=== PATIENT | male | born 1995 | race Two or more races ===

== ENCOUNTER 2016-12-02 12:40 | Emergency (ER) | payer OTHER ==
[2016-12-02 12:51] VITALS: BP 128/72; PULSE 88; TEMP 98.3; BMI 33.7
--- NOTE | 2016-12-02 13:39 | PDOC ---
History of Present Illness - General Chief Complaint: Rash Stated Complaint: RASH ON THIGH Time Seen by Provider: 12/02/16 13:06 History Source: Patient, Family Exam Limitations: No Limitations - History of Present Illness Initial Comments: 12/02/16 13:34 Patient is here with complaints of itchy rash to his groin and penis. States is a new onset diabetic and is had problems with his skin since 1 month. Has used Desitin cream but no other creams or treatments for same. Denies fever, denies any penile discharge, blood sugars have been uncontrolled Severity: Yes: mild, moderate Location: reports: genitalia Respiratory Risk Factors: reports: no cause identified Past History - Travel Traveled outside of the country in the last 30 days: No Close contact w/someone who was outside of country & ill: No - Past Medical History Allergies/Adverse Reactions: Allergies Allergy/AdvReac Type Severity Reaction Status Date / Time No Known Allergies Allergy Verified 12/02/16 12:48 Home Medications: Ambulatory Orders Insulin Glargine,Hum.rec.anlog [Lantus (nf)] 0 units SQ HS 08/18/16 Insulin Lispro [Humalog] 100 unit SQ TID 08/18/16 Metformin HCl [Glucophage] 1,000 mg PO BID 08/18/16 Oxycodone HCl/Acetaminophen [Percocet 5-325 mg Tablet -] 1 combo PO Q6H PRN #7 tablet MDD 4 08/18/16 Clotrimazole/Betamet Diprop [Lotrisone Cream (Small Tube)] 1 applic TP BID #1 tube 12/02/16 Diabetes: Yes - Immunization History Immunization Up to Date: Yes - Psycho/Social/Smoking Cessation Hx Anxiety: No Suicidal Ideation: No Smoking Status: Yes Smoking History: Current some day smoker Have you smoked in the past 12 months: Yes Number of Cigarettes Smoked Daily: 7 Information on smoking cessation initiated: Yes Hx Alcohol Use: No Drug/Substance Use Hx: No Substance Use Type: None Review of Systems - Review of Systems Able to Perform ROS?: Yes Is the patient limited Wallisian proficient: Yes Constitutional: Yes: Symptoms Reported, See HPI, Chills, Malaise HEENTM: No: Symptoms Reported Respiratory: Yes: Symptoms reported Integumentary: Yes: Symptoms Reported, Change in Color, Lesions, Pruritus, Rash All Other Systems: Reviewed and Negative *Physical Exam - Vital Signs Last Vital Signs Temp Pulse Resp BP Pulse Ox 98.3 F 88 19 128/72 97 12/02/16 12:48 12/02/16 12:48 12/02/16 12:48 12/02/16 12:48 12/02/16 12:48 - Physical Exam General Appearance: Yes: Nourished, Appropriately Dressed, Apparent Distress, Mild Distress HEENT: positive: MINI, Normal ENT Inspection, TMs Normal, Pharynx Normal Neck: positive: Supple Male Genitalia: positive: normal genitalia, other (with color changes and patchy pruritic rash consistent with a fungal appearance extending to scrotum, groin creases upper thighs and penis) Musculoskeletal: positive: Normal Inspection Extremity: positive: Normal Capillary Refill Integumentary: positive: Warm, Rash. negative: Normal Color Neurologic: positive: disbursing agent II-XII NML intact, Fully Oriented, Alert, Normal Mood/ Affect, Normal Response, Motor Strength 5/5 Progress Note - Progress Note Progress Note: tinea curis- will treat with Lotrizone= *DC/Admit/Observation/Transfer Diagnosis at time of Disposition: Josephine rash of groin - Discharge Dispostion Disposition: HOME Condition at time of disposition: Stable Admit: No - Patient Instructions Printed Discharge Instructions: Jock Itch Additional Instructions: Wash thoroughly with gentle soaps and dry thoroughly May apply Lotrizone or Antifungal ointment mixed with Desitin paste to areas affected twice daily until clear May use Tylenol or Motrin for pain relief Try to avoid using tight clothing as much as possible to allow drying Follow-up with private doctor in 2-3 days or if worsening Check sugars more frequently - Post Discharge Activity Work/School Note: Back to Work
== END 2016-12-02 13:45 | disposition home or self-care (01) ==
LOC: JERFT 12:40
DX: B35.6 Tinea cruris (principal); B37.49 Other urogenital candidiasis; E10.9 Type 1 diabetes mellitus without complications; Z79.4 Long term (current) use of insulin; Z79.84 Long term (current) use of oral hypoglycemic drugs
CPT/HCPCS: 99281-25

== ENCOUNTER 2018-02-17 20:47 | Emergency (ER) | payer OTHER ==
[2018-02-17 20:50] VITALS: BP 142/81; PULSE 98; TEMP 98; BMI 28.7
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
[2018-02-17 21:25] LABS: URINE APPEARANCE CLEAR; URINE BILIRUBIN NEGATIVE (<2.0 mg/dL); URINE COLOR LTYELLOW; URINE GLUCOSE (UA) 3+ (NEGATIVE); URINE KETONE TRACE (NEGATIVE); URINE LEUK ESTERASE NEGATIVE (NEGATIVE); URINE NITRITE NEGATIVE (NEGATIVE); URINE PROTEIN NEGATIVE (NEGATIVE)
== END 2018-02-17 22:57 | disposition home or self-care (01) ==
LOC: JERFT 20:47
DX: M76.892 Other specified enthesopathies of left lower limb, excluding foot (principal); E11.9 Type 2 diabetes mellitus without complications; Z79.4 Long term (current) use of insulin; Z79.84 Long term (current) use of oral hypoglycemic drugs; F17.210 Nicotine dependence, cigarettes, uncomplicated; Z11.3 Encounter for screening for infections with a predominantly sexual mode of transmission; Z86.19 Personal history of other infectious and parasitic diseases
CPT/HCPCS: 36415; 81003; 87086; 87491; 87591; 99281-25

== ENCOUNTER 2018-03-17 14:36 | Emergency (ER) | payer SELFPAY ==
[2018-03-17 15:02] VITALS: TEMP 98.6; BMI 30.5
[2018-03-17] MEDS ORDERED: METOCLOPRAMIDE HCL INJECTION 10 MG/2 ML VIAL IVPUSH ONE (16:05)
[2018-03-17] MEDS ORDERED: IBUPROFEN 400 MG TABLET (FP) PO ONE ×2 (16:05→16:20)
[2018-03-17] MEDS ORDERED: SODIUM CHLORIDE 1,000 ML IV ONE ×2 (16:05→18:11)
[2018-03-17] MEDS ORDERED: METOCLOPRAMIDE HCL INJECTION 10 MG/2 ML VIAL ONE (16:20)
[2018-03-17 16:47] LABS: BASO % 0.7 % (0-2.0); EOS % 0.2 % (0-4.5); HEMATOCRIT 45.3 % (35.4-49); HEMOGLOBIN 15.8 GM/dL (11.7-16.9); LYMPH % 11.9 % (8-40); MCH 32.8 pg (25.7-33.7); MCHC 34.9 g/dl (32.0-35.9); MEAN CELL VOLUME 94.1 fl (80-96); MEAN PLT VOLUME 10.9 fl (7.5-11.1); MONO % 4.7 % (3.8-10.2); NEUT % 82.5 % (42.8-82.8); PLATELET COUNT 202 K/MM3 (134-434); RBC 4.81 M/mm3 (4.00-5.60); RDW 11.9 % (11.9-15.9); WHITE BLOOD COUNT 12.3 K/mm3 (4.0-10.0)
--- NOTE | 2018-03-17 17:08 | PDOC ---
History of Present Illness - General Chief Complaint: Headache Stated Complaint: HEADACHE Time Seen by Provider: 03/17/18 15:16 History Source: Patient Exam Limitations: No Limitations - History of Present Illness Initial Comments: 03/17/18 17:03 22y M hx of IDDM (poorly compliant) presents with complaint of headache. The patient notes she has had a headache the past few days, it started gradually, is worse with movement, but otherwise resolves. currently headache is minimal but certain activities like bending over will worsen the headache. describes as a pressure/poudning behind his eyes. Pt admits to feeling warm yesterday, but his partner checked his temp and there was no efver. he denies any vision changes, numbnesstingling/weakness, neck pain/stiffness, n/v, chest pain, sob, palpitations, abd pain, dysuria, frequency, diarrhea, mina. pt ntoes he uses his basal insulin and his PRN insulin but doesnt check his blood sugar. he notes that 3 days ago, he gave himself both basal and sliding scale insulin at the same time. Past History - Past Medical History Allergies/Adverse Reactions: Allergies Allergy/AdvReac Type Severity Reaction Status Date / Time No Known Allergies Allergy Verified 03/17/18 15:02 Home Medications: Ambulatory Orders Insulin Glargine,Hum.rec.anlog [Lantus (nf)] 0 units SQ HS 08/18/16 Insulin Lispro [Humalog] 100 unit SQ TID 08/18/16 Metformin HCl [Glucophage] 1,000 mg PO BID 08/18/16 COPD: No Diabetes: Yes - Immunization History Immunization Up to Date: Yes - Suicide/Smoking/Psychosocial Hx Smoking Status: Yes Smoking History: Current every day smoker Have you smoked in the past 12 months: Yes Number of Cigarettes Smoked Daily: 20 Information on smoking cessation initiated: No Hx Alcohol Use: No Drug/Substance Use Hx: No Substance Use Type: None Review of Systems - Review of Systems Able to Perform ROS?: Yes Comments:: 03/17/18 17:33 Constitutional - no reported Fever, Chills, HEENT: no reported vision changes, sore throat Respiratory: no reported cough, sob, hemoptysis Cardiac: no reported chest pain, palpitations, light headedness, leg swelling Abd/GI: no reported abd pain, nausea, vomiting, blood per rectum, melena, diarrhea : no reported dysuria, frequency, discharge Musculskelatal - no reported back pain, joint swelling skin - no reported bruising, erythema, rash neurological: + headache no reported, numbness, focal weakness, tingling, ataxia , hematologic: no reported easy bruising, easy bleeding *Physical Exam - Vital Signs Last Vital Signs Temp Pulse Resp BP Pulse Ox 98.6 F 78 16 117/62 100 03/17/18 14:57 03/17/18 14:57 03/17/18 14:57 03/17/18 14:57 03/17/18 14:57 - Physical Exam Comments: 03/17/18 17:33 GENERAL: The patient is awake, alert, and fully oriented, Nontoxic - in no acute distress. HEAD: Normocephalic, atraumatic. EYES: extraocular movements intact, sclera anicteric, conjunctiva clear, pupils 4mm and symmetric b/l ENT: Normal voice, dry mucous membranes. NECK: Normal range of motion, supple LUNGS: Breath sounds equal, clear to auscultation bilaterally. No wheezes, no rhonchi, no rales. HEART: Regular rate and rhythm, normal S1 and S2 without murmur, rub or gallop. ABDOMEN: Soft, nontender, normoactive bowel sounds. No guarding, no rebound. . No CVA tenderness EXTREMITIES: Normal range of motion, no edema. No clubbing or cyanosis. No cords, erythema, or tenderness. NEUROLOGICAL: No facial assymetry, Normal speech, cn2-12 intact, motor 5/5 in upper/lower extremities, sensation symmetric in arms/legs, normal gait PSYCH: Normal mood, normal affect. SKIN: Warm, Dry, normal turgor, ED Treatment Course - LABORATORY CBC & Chemistry Diagram: 03/17/18 16:40 03/17/18 17:55 - ADDITIONAL ORDERS Additional order review: Laboratory Results 03/17/18 03/17/18 16:40 16:40 Sodium Cancelled Potassium Cancelled Chloride Cancelled Carbon Dioxide Cancelled Anion Gap Cancelled BUN Cancelled Creatinine Cancelled Creat Clearance w eGFR Cancelled Random Glucose Cancelled Calcium Cancelled Total Bilirubin Cancelled AST Cancelled ALT Cancelled Alkaline Phosphatase Cancelled Total Protein Cancelled Albumin Cancelled Acetone, Qual Cancelled 07/21/18 16:40 RBC 4.81 MCV 94.1 MCHC 34.9 RDW 11.9 MPV 10.9 Neutrophils % 82.5 Lymphocytes % 11.9 Monocytes % 4.7 Eosinophils % 0.2 Basophils % 0.7 - Medications Given in the ED: ED Medications Discontinued Medications Generic Name Dose Route Start Last Admin Trade Name Ravi PRN Reason Stop Dose Admin Ibuprofen 400 mg 03/17/18 16:05 03/17/18 16:30 Motrin - PO 03/17/18 16:06 400 mg ONCE ONE Administration Metoclopramide HCl 10 mg 03/17/18 16:05 03/17/18 16:39 Reglan Injection - IVPUSH 03/17/18 16:06 Not Given ONCE ONE Medical Decision Making - Medical Decision Making 03/17/18 17:34 suspect dehdyration headache gradual onset, not worse headache of life or any suggestion of SAH neuro exam unremarkable will ck labs to r/o dka as pt ahs poorly controled bgm will hdyrate with fluids, reglan for headac ewhil reassess 03/17/18 19:32 pts labs reivewd, no signs of dka bgm elevated, pt gettin gfluids headache resolved will dc the pt with pmd fu return precautions were discussed I discussed the physical exam findings, ancillary test results and final diagnoses with the patient. I answered all of the patient's questions. The patient was satisfied with the care received and felt comfortable with the discharge plan and treatment plan. The patient will call their primary care physician within 24 hours to arrange follow-up and will return to the Emergency Department with any new, persistent or worsening symptoms. *DC/Admit/Observation/Transfer Diagnosis at time of Disposition: Hyperglycemia Headache Qualifiers: Headache type: unspecified Headache chronicity pattern: unspecified pattern Intractability: not intractable Qualified Code(s): R51 - Headache - Discharge Dispostion Disposition: HOME Condition at time of disposition: Improved Decision to Admit order: No - Referrals Referrals: [facility] [place] [place] [Provider Group] - Patient Instructions Printed Discharge Instructions: DI for Sinus Headache, DI for Hyperglycemia -- Adult Additional Instructions: Return to the emergency department immediately with ANY new, persistent or worsening symptoms. Continue taking your insulin and medications as prescribed. Make deborah eto take your blood sugar prior to giving yourself the short acting insulin. Make sure to stay well hydrated You MUST call and follow up with your doctor tomorrow for further evaluation of your symptoms. Results were discussed with you. Please make sure your doctor reviews the results of your emergency evaluation. Print Language: TAJIK - Post Discharge Activity
[2018-03-17 18:07] LABS: VENOUS PC02 49.4 mmHg (38-52); VENOUS PH 7.38 (7.32-7.42); VENOUS PO2 33.7 mmHg (28-48)
[2018-03-17 18:39] LABS: ALBUMIN 4.1 g/dl (3.4-5.0); ALK PHOS 158 U/L (45-117); ANION GAP 7 (8-16); BILIRUBIN,TOTAL 0.7 mg/dL (0.2-1.0); BLOOD UREA NITROGEN 9 mg/dL (7-18); CALCIUM 9.2 mg/dL (8.5-10.1); CHLORIDE 98 mmol/L (98-107); CO2 30 mmol/L (21-32); CREATININE 0.9 mg/dL (0.7-1.3); POTASSIUM 3.9 mmol/L (3.5-5.1); SGOT/AST 15 U/L (15-37); SGPT/ALT 23 U/L (12-78); SODIUM 135 mmol/L (136-145); TOT PROT 7.6 g/dl (6.4-8.2)
[2018-03-17 18:49] LABS: GLUCOSE,RANDOM 341 mg/dL (74-106)
[2018-03-17 19:23] LABS: ACETONE SERUM NEGATIVE (NEGATIVE)
[2018-03-17 19:31] VITALS: BP 109/68; PULSE 77
[2018-03-17 20:20] LABS: URINE APPEARANCE CLEAR; URINE BILIRUBIN NEGATIVE (<2.0 mg/dL); URINE COLOR LTYELLOW; URINE GLUCOSE (UA) 3+ (NEGATIVE); URINE KETONE 1+ (NEGATIVE); URINE LEUK ESTERASE NEGATIVE (NEGATIVE); URINE NITRITE NEGATIVE (NEGATIVE); URINE PROTEIN NEGATIVE (NEGATIVE); URINE UROBILINOGEN NEGATIVE mg/dL (0.2-1.0)
== END 2018-03-17 20:09 | disposition home or self-care (01) ==
LOC: JER 14:36
PROC: 3E0337Z Introduction of Electrolytic and Water Balance Substance into Peripheral Vein, Percutaneous Approach (ICD-10-PCS; principal; 2018-03-17)
DX: E10.65 Type 1 diabetes mellitus with hyperglycemia (principal); Z79.4 Long term (current) use of insulin; R51 Headache; F17.210 Nicotine dependence, cigarettes, uncomplicated
CPT/HCPCS: 36415; 80053; 81003; 82009; 82803; 82962; 85025; 99283-25; J7030

== ENCOUNTER 2018-07-11 01:28 | Inpatient (IN) | payer OTHER ==
--- NOTE | 2018-07-11 02:11 | PDOC ---
History of Present Illness - General Chief Complaint: Muscle Cramping Stated Complaint: NUMBNESS, LT FT, DM Time Seen by Provider: 07/11/18 02:11 History Source: Patient - History of Present Illness Initial Comments: 07/11/18 02:20 The patient is a 23 year old male with IDDM who presents to the ED c/o R 1st toe numbness and anal pain and area of hardness. Patient first noticed anal hardness 2 days previous, denies any bleeding, no BM since noticing polyp. Painful to sit. H/o similar pain in 2016 that was self resolving. Toe numbness also started acutely 2 days previous. Denies difficulty ambulating. NKDA Surgical: denies Social: 5 cigarettes daily, daily marijuana, social alcohol PMD: Dr. Prabhu Venegas M.D. As per EMR, patient was evaluated for kana-rectal pain in 2016. Labs were normal, patient eloped prior to rectal CT. Past History - Past Medical History Allergies/Adverse Reactions: Allergies Allergy/AdvReac Type Severity Reaction Status Date / Time No Known Allergies Allergy Verified 07/11/18 02:13 Home Medications: Ambulatory Orders Insulin Lispro [Humalog] 100 unit SQ TID 08/18/16 Metformin HCl [Glucophage] 1,000 mg PO BID 08/18/16 Amox-Tr/K Cl [Augmentin - 875Mg Tablet] 1 tab PO BID 7 Days #14 tablet 03/19/18 COPD: No Diabetes: Yes - Immunization History Immunization Up to Date: Yes - Suicide/Smoking/Psychosocial Hx Smoking Status: Yes Smoking History: Never smoked Have you smoked in the past 12 months: No Number of Cigarettes Smoked Daily: 20 Hx Alcohol Use: No Drug/Substance Use Hx: No Substance Use Type: None *Physical Exam - Physical Exam General Appearance: Yes: Nourished, Appropriately Dressed HEENT: positive: Normal Voice, Hearing Grossly Normal Neck: positive: Trachea midline, Supple Respiratory/Chest: positive: Lungs Clear, Normal Breath Sounds Cardiovascular: positive: S1, S2. negative: Murmur Gastrointestinal/Abdominal: positive: Normal Bowel Sounds, Soft. negative: Rebound, Tenderness, Hernia, Mass Rectal Exam: positive: hemorrhoids (no external hemorrhoids visualized), other ( 1 mm induration @ anal verge, significant erythema, TTP @ at rectum) Musculoskeletal: negative: CVA Tenderness (R), CVA Tenderness (L) Extremity: positive: Normal Capillary Refill, Normal Inspection, Other ( sensation, proprioception intact in 1st digit) Integumentary: positive: Normal Color, Dry, Warm Neurologic: positive: Fully Oriented, Alert ED Treatment Course - LABORATORY CBC & Chemistry Diagram: 07/11/18 03:10 07/11/18 03:10 Medical Decision Making - Medical Decision Making 07/11/18 02:48 23 year old male with anal pain and R 1st toe numbness. PE shows rectal erythema and area of induration. 1st phalanx has sensation and propioception intact. Will obtain pelvic CT with IV and rectal contrast as patient has h/o DM , rule out abscess. 07/11/18 03:27 Labs pending Patient reassessed @ bedside, resting comfortably Fingerstick ordered @ presentation, pending 07/11/18 03:34 No leukocytosis CMP w/Cr pending 07/11/18 03:49 BS over range; awaiting K+; VBG, Acetone pending 07/11/18 04:11 Fingerstick out of range; CMP shows BS 700; K+ 3.8; Will give 6 units insulin; IV hydration; reassess 07/11/18 04:20 Patient counseled extensively on importance of BS control; states his BS is often 400's-500's; review of EMR shows on prior ED evaluations BS 200's-500's; Patient counseled that if he continues to non-adhere to DM regimen he will be on HD 07/11/18 04:38 Patient @ [address] 07/11/18 05:44 CT shows 4.7 x 4.1 cm phlegmon, possible fluid w/inflammatory changes around fatty tissues; no access of pelvic tissues (non-communicating) At this time, given patient's h/o of non-adherence and risk for systemic infection 2/2 to DM, will admit for surgical evaluation. Patient amenable to admission. Repeat FS pending 07/11/18 06:07 Case d/w Dr. Blevins. Patient admitted to observation. *DC/Admit/Observation/Transfer Diagnosis at time of Disposition: Rectal abscess - Discharge Dispostion Condition at time of disposition: Fair Decision to Admit order: Yes - Referrals Referrals: Sajan Venegas MD [Primary Care Provider] - - Patient Instructions - Post Discharge Activity
--- NOTE | 2018-07-11 02:58 | PDOC ---
Attending Attestation - HPI HPI: 07/11/18 03:18 The patient is a 23 year old male, with a significant past medical history of diabetes mellitus (poorly controlled), who presents to the emergency department with, right toe numbness and anal pain with hardness. Patient notes he initially noticed his anal hardness 2 days ago. His last BM was 2 days ago. Allergies: NKA Past surgical history: None reported. Social History: cigarettes 4-5/day. Smokes marijuana 3-4x a day, and is a social alcohol consumer. Primary Care Physician: Dr. Prabhu Venegas - Physicial Exam PE: 07/11/18 04:01 GENERAL: The patient is in no acute distress. HEAD: Normal with no signs of trauma. EYES: PERRLA, EOMI, sclera anicteric, conjunctiva clear. ENT: Ears normal, nares patent, oropharynx clear without exudates. Moist mucous membranes. NECK: Normal range of motion, supple without lymphadenopathy, JVD, or masses. LUNGS: Breath sounds equal, clear to auscultation bilaterally. No wheezes, and no crackles. HEART:Regular rate and rhythm, normal S1 and S2 without murmur, rub or gallop. ABDOMEN: Soft, nontender, normoactive bowel sounds. No guarding, no rebound. No masses palpable. +RECTAL: 3cm firm area to the right of the anus with tenderness to palpation. No erythema or fluctuance. EXTREMITIES: Normal range of motion, no edema. No clubbing or cyanosis. No erythema, or tenderness. NEUROLOGICAL: Cranial nerves II through XII grossly intact. Normal speech. No focal neurological deficits. MUSCULOSKELETAL: Back non-tender to palpation, no CVA tenderness SKIN: Warm, Dry, normal turgor, no rashes or lesions noted. - Medical Decision Making 07/11/18 05:44 EXAM: PELVIS CT WITH CONTRAST HISTORY: Rectal abscess COMPARISON: None. FINDINGS: Just posterior to the anus at the level of the superior portion of the anal crease is a 4.7 cm x 4.1 cm mass that has the appearance of the phlegmon. It is predominantly on the right side but crosses midline slightly to the left. There is does appear to be a faint 2 cm focus of fluid within it .. There is a faint wall around the fluid so still could be an immature abscess. There are inflammatory changes of the fatty tissues around the phlegmon, right greater than left areas Evaluation of the pelvic cavity the cells demonstrates no access or inflammation. The visualized bowel is normal. Urinary bladder is unremarkable. One or more of the following dose reduction techniques were used: automated exposure control, adjustment of the mA and/or kV according to patient size, use of iterative reconstructive technique. Read by: Asad Hernández MD <Sebastian Flynn - Last Filed: 07/11/18 05:44> - Resident Resident Name: Precious Simmons - ED Attending Attestation I have performed the following: I have examined & evaluated the patient, The case was reviewed & discussed with the resident, I agree w/resident's findings & plan, Exceptions are as noted - Medical Decision Making Adam is a 23 yo M h/o poorly controlled IDDM (typically, BGM 300-400) Pt presents with 2 days of perianal firmness and pain This has made it difficult for him to have a bowel movement No systemic signs of illness - no fever No constipation or diarrhea On examination: Pt A&O x 3 RRR CTA kana anal area non erythematous There is a firm area measuring 2.5 cm No fluctuance 07/11/18 04:56 Laboratory Tests 07/11/18 07/11/18 07/11/18 03:10 03:10 03:45 WBC 10.2 H Hgb 15.0 Hct 44.5 Plt Count 155 D Sodium 126 L Potassium 3.8 Chloride 89 L Carbon Dioxide 28 BUN 10 Creatinine 1.2 Random Glucose 701 H* Acetone, Qual Positive small 1+ Given Insulin 07/11/18 06:27 CT demonstrates a fluid collection Repeat blood glucose 600 Will do additional insulin sq Given abx Call placed to hopsitalist <Bren Vance - Last Filed: 07/11/18 06:48> Attestations - Attestations 07/11/18 03:19 Documentation prepared by Sebastian Flynn, acting as medical assistant cardiology for Bren Vance MD. <Sebastian Flynn - Last Filed: 07/11/18 05:44>
[2018-07-11 03:20] LABS: BASO % 0.4 % (0-2.0); EOS % 0.1 % (0-4.5); HEMATOCRIT 44.5 % (35.4-49); LYMPH % 9.3 % (8-40); MCH 32.2 pg (25.7-33.7); MCHC 33.8 g/dl (32.0-35.9); MEAN CELL VOLUME 95.4 fl (80-96); MEAN PLT VOLUME 10.9 fl (7.5-11.1); MONO % 4.6 % (3.8-10.2); NEUT % 85.6 % (42.8-82.8); PLATELET COUNT 155 K/MM3 (134-434); RBC 4.67 M/mm3 (4.00-5.60); RDW 12.5 % (11.9-15.9); WHITE BLOOD COUNT 10.2 K/mm3 (4.0-10.0)
[2018-07-11] MEDS ORDERED: SODIUM CHLORIDE 0.9% 500 ML INFUS.BAG IV ONE (03:50)
[2018-07-11 04:00] LABS: ALK PHOS 142 U/L (45-117); ANION GAP 10 MMOL/L (8-16); BILIRUBIN,TOTAL 0.6 mg/dL (0.2-1); BLOOD UREA NITROGEN 10 mg/dL (7-18); CALCIUM 8.9 mg/dL (8.5-10.1); CHLORIDE 89 mmol/L (98-107); CO2 28 mmol/L (21-32); CREATININE 1.2 mg/dL (0.55-1.3); POTASSIUM 3.8 mmol/L (3.5-5.1); SGOT/AST 10 U/L (15-37); SGPT/ALT 17 U/L (13-61); SODIUM 126 mmol/L (136-145); TOT PROT 7.3 g/dl (6.4-8.2)
[2018-07-11 04:02] LABS: GLUCOSE,RANDOM 701 mg/dL (74-106)
[2018-07-11] MEDS ORDERED: SODIUM CHLORIDE 1,000 ML IV STA (04:02)
[2018-07-11] MEDS ORDERED: INSULIN REGULAR HUMAN 100 UNITS/ML *VIAL IVPUSH ONE (04:03)
[2018-07-11 04:08] LABS: VENOUS PC02 47.4 mmHg (38-52); VENOUS PH 7.32 (7.32-7.42); VENOUS PO2 74.6 mmHg (28-48)
[2018-07-11] MEDS ORDERED: INSULIN (NOVOLOG) ASPART 100 UNITS/ML 10ML VIAL ONE (04:25)
[2018-07-11] MEDS ORDERED: PIPERACILLIN/TAZOB 4.5 GM 4.5 GM in DEXTROSE 5%-WATER 100 ML IVPB ONE (05:54)
[2018-07-11] MEDS ORDERED: INSULIN REGULAR HUMAN 100 UNITS/ML *VIAL SQ ONE (06:23)
[2018-07-11] MEDS ORDERED: LACTATED RINGERS SOLUTION 1,000 ML/1,000 ML INFUS.BAG IV SCH ×2 (06:30→08:07)
--- NOTE | 2018-07-11 06:34 | HP ---
CHIEF COMPLAINT: Anal pain PCP: Dr. Venegas HISTORY OF PRESENT ILLNESS: Patient is a 23 year old male with history of poorly controlled diabetes mellitus, and prior anal abscess in 2016, presents with complaint of anal pain. States he feels a "firmness" with progressively worsening over past three days, described as sharp, nonradiating, pain localized to right sided anus. Denies trauma to the area. Patient is unable to describe any inciting factor. Patient endorses that he has not had bowel movement in three days, due to hesitancy secondary to pain. Exacerbated with sitting down. Denies palliative features. Patient admits similar symptoms in 2016, however per prior ED notes, patient had eloped before treatment. Patient endorses the symptoms resolved spontaneously, and have not recurred since that episode. Patient also endorses constant left toe numbness and parasthesias over the past week. Denies trauma to the area. Has not attempted palliative measures. 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 Family History: Allergies No Known Allergies Allergy (Verified 07/11/18 02:13) HOME MEDICATIONS: Home Medications Medication Instructions Recorded Insulin Lispro [Humalog] 100 unit SQ TID 08/18/16 Metformin HCl [Glucophage] 1,000 mg PO BID 08/18/16 Amox-Tr/K Cl [Augmentin - 875Mg 1 tab PO BID 7 Days #14 tablet 03/19/18 Tablet] REVIEW OF SYSTEMS CONSTITUTIONAL: Absent: fever, chills, diaphoresis, generalized weakness, malaise, loss of appetite, weight change HEENT: Absent: rhinorrhea, nasal congestion, throat pain, throat swelling, difficulty swallowing, mouth swelling, ear pain, eye pain, visual changes CARDIOVASCULAR: Absent: chest pain, syncope, palpitations, irregular heart rate, lightheadedness , peripheral edema RESPIRATORY: Absent: cough, shortness of breath, dyspnea with exertion, orthopnea, wheezing, stridor, hemoptysis GASTROINTESTINAL: Admits: kana-anal pain. Absent: abdominal pain, abdominal distension, nausea, vomiting, diarrhea, melena, hematochezia GENITOURINARY: Absent: dysuria, frequency, urgency, hesitancy, hematuria, flank pain, genital pain MUSCULOSKELETAL: Absent: myalgia, arthralgia, joint swelling, back pain, neck pain SKIN: Absent: rash, itching, pallor HEMATOLOGIC/IMMUNOLOGIC: Absent: easy bleeding, easy bruising, lymphadenopathy, frequent infections ENDOCRINE: Absent: unexplained weight gain, unexplained weight loss, heat intolerance, cold intolerance NEUROLOGIC: Absent: headache, focal weakness or paresthesias, dizziness, unsteady gait, seizure, mental status changes, bladder or bowel incontinence PSYCHIATRIC: Absent: anxiety, depression, suicidal or homicidal ideation, hallucinations. PHYSICAL EXAMINATION Vital Signs - 24 hr 07/11/18 07/11/18 01:30 06:18 Temperature 98.7 F 97.9 F Pulse Rate 98 H Pulse Rate [ 90 Apical] Respiratory 18 16 Rate Blood Pressure 141/74 Blood Pressure 122/74 [Right Arm] O2 Sat by Pulse 98 99 Oximetry (%) GENERAL: Awake, alert, and fully oriented, in no acute distress. HEAD: Normal with no signs of trauma. EYES: Pupils equal, round and reactive to light, extraocular movements intact, sclera anicteric, conjunctiva clear. No lid lag. EARS, NOSE, THROAT: Ears normal, nares patent, oropharynx clear without exudates. Moist mucous membranes. NECK: Normal range of motion, supple without lymphadenopathy, JVD, or masses. LUNGS: Breath sounds equal, clear to auscultation bilaterally. No wheezes, and no crackles. No accessory muscle use. HEART: Regular rate and rhythm, normal S1 and S2 without murmur, rub or gallop. ABDOMEN: Soft, nontender, not distended, normoactive bowel sounds, no guarding, no rebound, no masses. No hepatomegaly or splenomegaly. MUSCULOSKELETAL: Normal range of motion at all joints. No bony deformities or tenderness. No CVA tenderness. UPPER EXTREMITIES: 2+ pulses, warm, well-perfused. No cyanosis. No clubbing. No peripheral edema. LOWER EXTREMITIES: 2+ pulses, warm, well-perfused. No calf tenderness. No peripheral edema. NEUROLOGICAL: Cranial nerves II-XII intact. Normal speech. Normal gait. PSYCHIATRIC: Cooperative. Good eye contact. Appropriate mood and affect. SKIN: Erythema noted to right of anus. Warm, without induration palpated, or discharge noted. Exquisitely tender to palpation. Laboratory Results - last 24 hr 07/11/18 07/11/18 07/11/18 03:10 03:10 03:45 WBC 10.2 H RBC 4.67 Hgb 15.0 Hct 44.5 MCV 95.4 MCH 32.2 MCHC 33.8 RDW 12.5 Plt Count 155 D MPV 10.9 Absolute Neuts (auto) 8.7 H Neutrophils % 85.6 H Lymphocytes % 9.3 D Monocytes % 4.6 Eosinophils % 0.1 Basophils % 0.4 Nucleated RBC % 0 VBG pH 7.32 POC VBG pCO2 47.4 POC VBG pO2 74.6 H D Mixed VBG HCO3 23.8 Sodium 126 L Potassium 3.8 Chloride 89 L Carbon Dioxide 28 Anion Gap 10 BUN 10 Creatinine 1.2 Creat Clearance w eGFR > 60 Random Glucose 701 H* Calcium 8.9 Total Bilirubin 0.6 AST 10 L ALT 17 Alkaline Phosphatase 142 H Total Protein 7.3 Albumin 4.0 Acetone, Qual 07/11/18 03:45 WBC RBC Hgb Hct MCV MCH MCHC RDW Plt Count MPV Absolute Neuts (auto) Neutrophils % Lymphocytes % Monocytes % Eosinophils % Basophils % Nucleated RBC % VBG pH POC VBG pCO2 POC VBG pO2 Mixed VBG HCO3 Sodium Potassium Chloride Carbon Dioxide Anion Gap BUN Creatinine Creat Clearance w eGFR Random Glucose Calcium Total Bilirubin AST ALT Alkaline Phosphatase Total Protein Albumin Acetone, Qual Positive small 1+ ASSESSMENT/PLAN: Patient is a 23 year old male with history of poorly controlled diabetes mellitus, and prior anal abscess in 2015, presents with complaint of anal pain. Anal abscess -Patient received Vancomycin 1 gram IV, Zosyn 4.5 grams IV, and Flagyl 500mg IV in ED. -CT pelvis shows 4.7cm x 4.1 cm mass appearing phlegmon along right side, crossing midline to left. Inflammatory changes along right side. -F/U surgical consult (Dr. Padilla) -F/U ID consult (Dr. Mayen) -NPO -IV LR at 60mL/ hour Diabetes Mellitus -Poorly controlled. Will need close outpatient follow up. -Will begin insulin sliding scale Q6H -BGM Q6H FEN -IV LR at 60mL/ hour -Follow CMP -NPO Prophylaxis -SCDs, TEDs in anticipation of possible surgical procedure. Disposition -Admit to medical surgical floor Visit type - Emergency Visit Emergency Visit: Yes ED Registration Date: 07/11/18 Care time: The patient presented to the Emergency Department on the above date and was hospitalized for further evaluation of their emergent condition. - New Patient This patient is new to me today: Yes Date on this admission: 07/11/18 - Critical Care Critical Care patient: No
[2018-07-11] MEDS ORDERED: INSULIN SLIDING SCALE (NOVOLOG) 1 VIAL SQ SCH (07:00)
[2018-07-11] MEDS ORDERED: ACETAMINOPHEN 1000 MG/100 ML VIAL (NON FORMULARY) IVPB ONE (07:00)
[2018-07-11 07:09] LABS: INR 0.87 (0.83-1.09); PROTHROMBIN TIME (PATIENT) 10.3 SEC (9.7-13.0)
[2018-07-11 07:11] LABS: ACTIVATED PTT 30.9 SECONDS (25.2-36.5)
[2018-07-11] MEDS ORDERED: PIPERACILLIN/TAZOB 4.5 GM 4.5 GM/100 ML BAG IVPB ONE (07:24)
[2018-07-11 07:26] LABS: BASO % 0.7 % (0-2.0); EOS % 0.5 % (0-4.5); HEMATOCRIT 40.2 % (35.4-49); LYMPH % 13.8 % (8-40); MCH 32.1 pg (25.7-33.7); MCHC 34.7 g/dl (32.0-35.9); MEAN CELL VOLUME 92.6 fl (80-96); MEAN PLT VOLUME 10.4 fl (7.5-11.1); MONO % 7.5 % (3.8-10.2); NEUT % 77.5 % (42.8-82.8); PLATELET COUNT 139 K/MM3 (134-434); RBC 4.34 M/mm3 (4.00-5.60); RDW 12.5 % (11.9-15.9); WHITE BLOOD COUNT 9.8 K/mm3 (4.0-10.0)
--- NOTE | 2018-07-11 07:37 | PN ---
Teaching Attending Note Name of Resident: Leena Blevins ATTENDING PHYSICIAN STATEMENT I saw and evaluated the patient. I reviewed the resident's note and discussed the case with the resident. I agree with the resident's findings and plan as documented. SUBJECTIVE: Seen and examined; he is a 23 y/o HM with a PMH significant for DM (states diagnosed 2 years ago; should be on home insulin but he only takes 2-3 times a week and freely admits noncompliance). He was seen here in the past for a rectal abscess but asconded. He first had the rectal abscess ~3 years ago and he states it spontaneously resolved. This time it is worse, painful on his R- inner gluteal area and made worse with activity. No recent abx, no injury to the area, no other issues today he complains of. His glucose is 700 in the ER. Given insulin and fluids. Covering with broad spectrum abx, consulting sgy and ID. 10 sys ROS done and negative aside from HPI PMH and PSH per chart; no prior instrumentation to the area. FH asked and noncontributory Social denies EtOH, drugs. Does use tobacco with several cigarettes/day. OBJECTIVE: Labs, VS, imaging reviewed; final report pending NAD, AAO, resting in bed Golf ball sized R-inner gluteal abscess with redness and induration near the sphincter. Good brisk cap refill, tone normal, +pulses NT ND +BS CN2-12 wnl, no fnd ASSESSMENT AND PLAN: 1) Gluteal Abscess -Seen on prelim scan; awaiting final report. -IV vanc and zosyn (need to cover for G+ and G- alongside risks of uncontrolled DM given the anatomical region at risk for anaerobic involvement). -Consulting sgy and ID. NPO. IVF. Monitor glucose and keep <180 ideally to promote wound healing 2) DM with hyperglycemia -States he was just diagnosed; no prior DKA hx here, etc. He is not in DKA today -SSI while NPO; start Levemir once eating and elucidate for certain if DM2 v DM1. If 2, will start metformin prior to DC -Supplies prior to DC 3) Noncompliance -Physical Education Professor prior to DC 4) Hyponatremia -Likely pseudohypoNa 2/2 glucose; correct and recheck Full Code
[2018-07-11] MEDS ORDERED: ACETAMINOPHEN INJECTION 100 ML IVPB ONE (07:45)
[2018-07-11] MEDS: INSULIN SLIDING SCALE (NOVOLOG) 1 VIAL SQ SCH ×3 (07:53→18:29)
[2018-07-11 08:46] LABS: ALBUMIN 3.4 g/dl (3.4-5.0); ALK PHOS 124 U/L (45-117); ANION GAP 9 MMOL/L (8-16); BILIRUBIN,TOTAL 0.6 mg/dL (0.2-1); BLOOD UREA NITROGEN 9 mg/dL (7-18); CALCIUM 7.7 mg/dL (8.5-10.1); CHLORIDE 100 mmol/L (98-107); CO2 25 mmol/L (21-32); CREATININE 0.8 mg/dL (0.55-1.3); MAGNESIUM 1.8 mg/dL (1.8-2.4); PHOSPHOROUS 2.4 mg/dL (2.5-4.9); POTASSIUM 3.4 mmol/L (3.5-5.1); SGOT/AST 6 U/L (15-37); SGPT/ALT 16 U/L (13-61); SODIUM 134 mmol/L (136-145); TOT PROT 6.2 g/dl (6.4-8.2)
[2018-07-11 08:55] LABS: GLUCOSE,RANDOM 429 mg/dL (74-106)
[2018-07-11] MEDS ORDERED: VANCOMYCIN 1 GRAM (PRE-DOCKED) 1,000 MG/250 ML BAG IVPB ONE (10:00)
[2018-07-11] MEDS ORDERED: PIPERACILLIN/TAZOB 3.375 GM 3.375 GM in DEXTROSE 5%-WATER - 50 ML IVPB SCH ×2 (10:00→14:00)
[2018-07-11] MEDS ORDERED: INSULIN (LEVEMIR) 100 UNITS/ML UNITS SQ SCH (10:00)
--- NOTE | 2018-07-11 10:11 | PN ---
Progress Note (short form) - Note Progress Note: surgery pt seen and examined. full consult and procedure note dictated. 23m, dm, with perirectal abscess at 11:00 position. I&d done with 10 ml pus. pressure dressing placed. Plan- warm soaks tid with epsom salt starting tonight and dry dressing. suggest 5 days augmentin 875 bid once discharged. will follow in 3 weeks to evaluate for development of fistula in ano.
[2018-07-11] MEDS ORDERED: LIDOCAINE 2%/EPINEPHRINE 1:100000 (50 ML MD VIAL) NR ONE (10:15)
[2018-07-11] MEDS ORDERED: LIDOCAINE 1%/EPI 1:100000 (50 ML MULTI DOSE VIAL) NR ONE ×2 (10:15)
[2018-07-11 11:45] VITALS: BMI 30.6
[2018-07-11] MEDS: oxyCODONE HCL 5 MG TABLET PO PRN ×2 (12:21→19:44)
--- NOTE | 2018-07-11 12:44 | CON.ID ---
Consult Consult Specialty:: infectious diseases - Alcohol/Substance Use Hx Alcohol Use: No - Smoking History Smoking history: Never smoked Have you smoked in the past 12 months: No Aproximately how many cigarettes per day: 20 Home Medications - Allergies Allergies/Adverse Reactions: Allergies Allergy/AdvReac Type Severity Reaction Status Date / Time peanut Allergy Intermediate Swelling Verified 07/11/18 11:52 - Home Medications Home Medications: Ambulatory Orders Insulin Lispro [Humalog] 100 unit SQ TID 08/18/16 Metformin HCl [Glucophage] 1,000 mg PO BID 08/18/16 Amox-Tr/K Cl [Augmentin - 875Mg Tablet] 1 tab PO BID 7 Days #14 tablet 03/19/18 Physical Exam Vital Signs: Vital Signs Temperature 97.8 F 07/11/18 09:30 Pulse Rate 80 07/11/18 09:30 Respiratory Rate 18 07/11/18 09:30 Blood Pressure 122/76 07/11/18 09:30 O2 Sat by Pulse Oximetry (%) 98 07/11/18 09:30 Labs: CBC, BMP 07/11/18 07:11 07/11/18 07:11
--- NOTE | 2018-07-11 13:55 | PN ---
Progress Note, Physician Chief Complaint: Mr Le says he has pain and I&D site. Denies cp, sob, n/v. - Current Medication List Current Medications: Active Medications Piperacillin Sod/Tazobactam (Sod 3.375 gm/ Dextrose) 50 mls @ 100 mls/hr IVPB TID [facility]; Protocol Insulin Aspart (Novolog Vial Sliding Scale -) 1 vial SQ Q6H [facility]; Protocol Last Admin: 07/11/18 12:42 Dose: 10 units Oxycodone HCl (Roxicodone -) 5 mg PO Q4H PRN PRN Reason: PAIN LEVEL 4 - 6 Oxycodone HCl (Roxicodone -) 10 mg PO Q4H PRN PRN Reason: PAIN LEVEL 6-10 Last Admin: 07/11/18 12:21 Dose: 10 mg - Objective Vital Signs: Vital Signs Temperature 36.6 C 07/11/18 09:30 Pulse Rate 80 07/11/18 09:30 Respiratory Rate 18 07/11/18 09:30 Blood Pressure 122/76 07/11/18 09:30 O2 Sat by Pulse Oximetry (%) 98 07/11/18 09:30 Constitutional: Yes: No Distress, Calm, Obese Cardiovascular: Yes: Regular Rate and Rhythm. No: Gallop, Murmur, Rub Respiratory: Yes: Regular, CTA Bilaterally. No: Rales, Rhonchi, Wheezes Gastrointestinal: Yes: Normal Bowel Sounds, Soft. No: Distention, Tenderness Extremities: Yes: WNL Edema: No Labs: CBC, BMP 07/11/18 07:11 07/11/18 07:11 INR, PTT INR 0.87 (0.83-1.09) 07/11/18 06:46 Problem List - Problems (1) Rectal abscess Assessment/Plan: -s/p post I&D -ID recommendations pending, but suspect should be safe to transition to oral antibiotics tomorrow (2) Uncontrolled diabetes mellitus Assessment/Plan: -patient is non-compliant with medications -also says he is non-compliant with diet -instructed patient on importance of glucose control -will need follow up -continue SSI currently for better control Code(s): E11.65 - TYPE 2 DIABETES MELLITUS WITH HYPERGLYCEMIA Qualifiers: Diabetes mellitus type: type 2 Glycemic state: with hyperglycemia Qualified Code(s): E11.65 - Type 2 diabetes mellitus with hyperglycemia Assessment/Plan Dispo -plan for discharge tomorrow -patient is without PCP -referred to Dr Moore at [facility] -patient given information and instructed to call for appointment
[2018-07-11] MEDS ORDERED: DEXTROSE 5%-WATER - 50 ML IVPB ONE ×2 (14:58→21:07)
[2018-07-11] MEDS ORDERED: PIPERACILLIN/TAZOBACTAM 3.375 GM VIAL IVPB ONE ×2 (14:58→21:06)
[2018-07-11] MEDS: PIPERACILLIN/TAZOB 3.375 GM 3.375 GM in DEXTROSE 5%-WATER - 50 ML IVPB SCH ×2 (15:10→21:25)
[2018-07-12] MEDS: oxyCODONE HCL 5 MG TABLET PO PRN ×2 (00:46→00:52)
[2018-07-12] MEDS: INSULIN SLIDING SCALE (NOVOLOG) 1 VIAL SQ SCH ×3 (00:47→12:52)
[2018-07-12] MEDS ORDERED: PIPERACILLIN/TAZOBACTAM 3.375 GM VIAL IVPB ONE (05:43)
[2018-07-12] MEDS ORDERED: DEXTROSE 5%-WATER - 50 ML IVPB ONE (05:43)
[2018-07-12] MEDS: PIPERACILLIN/TAZOB 3.375 GM 3.375 GM in DEXTROSE 5%-WATER - 50 ML IVPB SCH (05:47)
[2018-07-12 06:04] VITALS: BP 120/62; PULSE 81; TEMP 98.3
[2018-07-12] MEDS ORDERED: PT OWN MED DRAWER 7, Y5N ONE (08:42)
--- NOTE | 2018-07-12 12:17 | CONS ---
DATE OF CONSULTATION: 07/11/2018 REASON FOR CONSULTATION AND PROCEDURE: Perirectal abscess. BRIEF HISTORY: This is a 23-year-old male, insulin-dependent diabetic, who presented to [facility] Emergency Room with a perirectal abscess. This was not incised and drained in the emergency room and instead requested today for surgical drainage. The patient was admitted to the hospital, had a CAT scan of his abdomen and pelvis which confirmed the abscess, and was started on Zosyn as well as Flagyl antibiotic. The patient has no fever. PAST MEDICAL HISTORY: Significant for diabetes. He has had a thigh cyst before that was drained. PAST SURGICAL HISTORY: Nil. SOCIAL HISTORY: Positive for marijuana. FAMILY HISTORY: Negative for malignancy in the immediate family. ALLERGIES: He has no known drug allergies. HOME MEDICATIONS: Have been reviewed. They include insulin, metformin. REVIEW OF SYSTEMS: General: Denies fatigue or malaise. Cardiac: Denies chest pain or palpitations. Respiratory: Denies shortness of breath or wheeze. Gastrointestinal: No nausea. No vomiting. No diarrhea. Genitourinary: Denies dysuria. Anal: Admits to pain at his anus. Musculoskeletal: Denies joint pain. Psychiatric: Denies anxiety. PHYSICAL EXAMINATION: General: This is a well-developed, well-nourished, 23-year-old male in no distress. Vital Signs: He is afebrile. HEENT: His head is normocephalic. The sclerae are anicteric. Neck: Supple. Chest: Clear. Abdomen: Soft. Extremities: Have trace edema. Rectal: On anal exam, visual inspection at the 11 o'clock position, he has a perirectal abscess. It is approximately 1 cm deep to the skin. Digital rectal exam is deferred due to patient pain. ASSESSMENT: This is a 23-year-old male with a perirectal abscess and diabetes. Will perform incision and drainage. Risks and benefits of the procedure were explained to the patient in detail, including development of a fistula in ano, as well as pain, bleeding, and incontinence. PROCEDURE: The patient was placed in the lateral recumbent position with the right side up. The perianal area was prepped and draped in sterile fashion. Next, 30 mL of lidocaine with epinephrine was used in order to anesthetize the perianal area. A 2-cm radial incision was made with a slight cruciate cut going into the abscess cavity. The abscess cavity tracked along the anus as expected and approximately 10-15 mL of white, nonodorous pus was drained. This was sent for culture. At this point, a dry dressing was placed after irrigation. No further pus was required to be drained. The patient was admitted and on his Zosyn antibiotic. When felt to be safely discharged by the Medicine and ID service, he should be discharged home on oral antibiotics. I would suggest Augmentin. He should follow with me in 3 weeks' time to evaluate for complete closure of the incision and to rule out development of a fistula. The patient also should do warm soaks 3 times a day with Epson salt starting tonight and then apply a dry dressing. Although he is only 23, he should also consider a colonoscopy to look for other etiologies of his perirectal abscess such as inflammatory bowel disease. DO SUMMER OWEN/[id number]
--- NOTE | 2018-07-12 12:40 | PN ---
Progress Note, Physician History of Present Illness: patient stable doing much better no complaints pain better - Current Medication List Current Medications: Active Medications Piperacillin Sod/Tazobactam (Sod 3.375 gm/ Dextrose) 50 mls @ 100 mls/hr IVPB TID [facility]; Protocol Last Admin: 07/12/18 05:47 Dose: 100 mls/hr Insulin Aspart (Novolog Vial Sliding Scale -) 1 vial SQ Q6H [facility]; Protocol Last Admin: 07/12/18 06:32 Dose: 4 units Oxycodone HCl (Roxicodone -) 5 mg PO Q4H PRN PRN Reason: PAIN LEVEL 4 - 6 Last Admin: 07/11/18 19:44 Dose: 5 mg Oxycodone HCl (Roxicodone -) 10 mg PO Q4H PRN PRN Reason: PAIN LEVEL 6-10 Last Admin: 07/12/18 00:52 Dose: 10 mg - Objective Vital Signs: Vital Signs Temperature 98.3 F 07/11/18 21:00 Pulse Rate 81 07/11/18 21:00 Respiratory Rate 17 07/11/18 21:00 Blood Pressure 120/62 07/11/18 21:00 O2 Sat by Pulse Oximetry (%) 98 07/11/18 21:00 Constitutional: Yes: No Distress, Calm Respiratory: Yes: Regular, CTA Bilaterally Gastrointestinal: Yes: Normal Bowel Sounds, Soft Musculoskeletal: Yes: WNL Extremities: Yes: WNL Neurological: Yes: Alert, Oriented Psychiatric: Yes: Alert, Oriented Labs: CBC, BMP 07/11/18 07:11 07/11/18 07:11 INR, PTT INR 0.87 (0.83-1.09) 07/11/18 06:46 Assessment/Plan Patient is a 23 year old male with history of poorly controlled diabetes mellitus, and prior anal abscess in 2016, presents with complaint of anal pain. Anal abscess Diabetes Mellitus plan patient can be discharged on augmentin 875 mg po bid for 7 more days follow up with surgery rest as per the team
--- NOTE | 2018-07-12 12:57 | DS ---
Physical Examination Vital Signs: Vital Signs Temperature 36.8 C 07/11/18 21:00 Pulse Rate 81 07/11/18 21:00 Respiratory Rate 17 07/11/18 21:00 Blood Pressure 120/62 07/11/18 21:00 O2 Sat by Pulse Oximetry (%) 98 07/11/18 21:00 Constitutional: Yes: No Distress, Calm, Obese Cardiovascular: Yes: Regular Rate and Rhythm. No: Gallop, Murmur, Rub Respiratory: Yes: Regular, CTA Bilaterally. No: Rales, Rhonchi, Wheezes Gastrointestinal: Yes: Normal Bowel Sounds, Soft. No: Distention, Tenderness Extremities: Yes: WNL Edema: No Labs: CBC, BMP 07/11/18 07:11 07/11/18 07:11 Discharge Summary Reason For Visit: ABSCESS OF RECTUM Current Active Problems Rectal abscess (Acute) Hospital Course: (1) Rectal abscess (2) Uncontrolled diabetes mellitus Code(s): E11.65 - TYPE 2 DIABETES MELLITUS WITH HYPERGLYCEMIA Qualifiers: Diabetes mellitus type: type 2 Glycemic state: with hyperglycemia Qualified Code(s): E11.65 - Type 2 diabetes mellitus with hyperglycemia Mr Le is a 23 year old male who comes in with rectal abscess and uncontrolled diabetes. He was admitted to the hospital and started on zosyn. He was seen by surgery and underwent I&D. He tolerated this well without complications. He was seen by ID and after 24 hours his zosyn was changed to augmentin. He was counselled multiple times about controlling his diabetes. He was given the number to Dr Moore at [facility] to establish primary care, hopefully he will do so and remain compliant with his regimen. He is currently stable for discharge home. 32 minutes spent in preparation of this discharge Condition: Stable - Instructions Diet, Activity, Other Instructions: diabetic diet. Resume previous activity. Referrals: Chucky Moore MD [Non Staff, Medical] - 1 Week Boris Grover MD [Staff Physician] - Disposition: HOME - Home Medications Comprehensive Discharge Medication List: Ambulatory Orders Insulin Lispro [Humalog] 100 unit SQ TID 08/18/16 Metformin HCl [Glucophage] 1,000 mg PO BID 08/18/16 Amox-Tr/K Cl [Augmentin 875-125mg Tablet -] 1 tab PO BID 7 Days #14 tablet 07/12 oxyCODONE HCL [Roxicodone -] 5 mg PO Q4H PRN #10 tablet MDD 30mg 07/12/18
== END 2018-07-12 13:53 | disposition home or self-care (01) | DRG 254 ==
LOC: JER 01:28 → JERBED 05:54 → OBSVTOIN 06:27 → J5S 09:16
PROVIDERS: ADMIT Internal Medicine; ATTEND Internal Medicine
PROC: 0D9P3ZX Drainage of Rectum, Percutaneous Approach, Diagnostic (ICD-10-PCS; principal; 2018-07-11)
DX: K61.1 Rectal abscess (principal); E11.65 Type 2 diabetes mellitus with hyperglycemia; E87.1 Hypo-osmolality and hyponatremia; Z79.4 Long term (current) use of insulin; Z79.84 Long term (current) use of oral hypoglycemic drugs; F12.10 Cannabis abuse, uncomplicated; F17.210 Nicotine dependence, cigarettes, uncomplicated; Z91.14 Patient's other noncompliance with medication regimen; E66.9 Obesity, unspecified; Z68.30 Body mass index [BMI] 30.0-30.9, adult
CPT/HCPCS: 36415; 72193-TC; 80053; 82009; 82803; 82962; 83036; 83735; 84100; 85025; 85610; 85651; 85730; 86140; 86850; 86900; 86901; 87070; 87186; 87205; 99284-25; G0378; J0131; J7030

== ENCOUNTER 2018-08-05 02:41 | Emergency (ER) | payer OTHER ==
--- NOTE | 2018-08-05 03:01 | PDOC ---
Attending Attestation - Resident Resident Name: Melina Sherwood - ED Attending Attestation I have performed the following: I have examined & evaluated the patient, The case was reviewed & discussed with the resident, I agree w/resident's findings & plan - HPI HPI: 08/05/18 03:08 Pt comes with tonsil swelling bilat; exudates x 3 plus days and he has a hx of diabetes that is uncontrolled. He has abd pain and states that he has not been eating and drinking enough. - Physicial Exam PE: 08/05/18 04:31 Pt has white exudates on tonsils. Pt has strep A negative. We will treat him for thrush. We will send him home with pen Vee K for strep (different serotupe than grp A) - Medical Decision Making 08/05/18 03:24 Pt will be hydrated; given pepcid and clinda; and if strep positive, we will treat with LA bicillin IM. Pt has only peanut allergy 08/05/18 04:32 Pt has a blood sugar of 320s. We will treat with NSS and Regular insulin push. He will be sent home with metformin, as he will be traveling to [place], where he is from. He can follow with doctors there. 08/05/18 04:41 Pt will have repeat blood fingerstick in a couple hours and then he will be discharged and asked to follow with clinic docs. Repeat FS is 249; pt is stable for d/c Heart Score/ECG Review - ECG Intrepretation Rhythm: Regular Rhythm - [place]: Normal - P and UT Prominent R with upright T in V1 (true posterior NV): No Delta Wave(s) Present: No WPW: No - QRS Poor R Wave Progression: No Q Wave Present: No - ECG Impressions Normal ECG: Yes Non-specific ST Elevation: No Ischemic Changes: No Bradycardia: No Torsades yakelin Pointes: No WPW: No
[2018-08-05 03:03] VITALS: PULSE 82; TEMP 98.6; BMI 66.4
[2018-08-05] MEDS ORDERED: CLINDAMYCIN 600MG PREMIX IVPB 600 MG/50 ML BAG IVPB ONE ×2 (03:08→03:32)
[2018-08-05] MEDS ORDERED: SODIUM CHLORIDE 0.9% 500 ML INFUS.BAG IV ONE (03:08)
[2018-08-05] MEDS ORDERED: FAMOTIDINE 20 MG/50 ML IVPB 20 MG/50 ML MG IVPB ONE ×2 (03:08→03:32)
--- NOTE | 2018-08-05 03:37 | PDOC ---
History of Present Illness <Tonja Espitia - Last Filed: 08/05/18 05:59> - History of Present Illness Initial Comments: Adam Le is a 23yo man with a PMH of IDDM who presnets with 3-4 days of throat pain and now chest/upper abdominal pain. He states that initially he had throat pain, which is now so severe that he is unable to swallow, and this has progressed to upper abdominal v chest pain. He states that it hurts underneath his lowest ribs. Mr Le has not taken anything for the pain at home. He additionally reports that he does not check his blood glucose at home and has not done so for the past approximately 4 months. He has no idea what his glucose normally is at home. Mr Le denies any known fevers, shivering chills, vomiting, lower abdominal pain, congestion, ear pain, cough, or change in bowel habits. He has no known sick contacts. He does report mild SOB secondary to increased pain with deep breaths. <Melina Sherwood - Last Filed: 08/05/18 06:21> - General Chief Complaint: Chest Pain Stated Complaint: CHEST PAIN/DIABETIC Time Seen by Provider: 08/05/18 02:48 Past History <Tonja Espitia - Last Filed: 08/05/18 05:59> - Past Medical History Anemia: No Asthma: No Cancer: No Cardiac Disorders: No CVA: No COPD: No CHF: No Dementia: No Diabetes: Yes GI Disorders: No Disorders: No HTN: No Hypercholesterolemia: No Liver Disease: No Seizures: No Thyroid Disease: No - Immunization History Immunization Up to Date: Yes - Suicide/Smoking/Psychosocial Hx Smoking Status: Yes Smoking History: Unknown if ever smoked Have you smoked in the past 12 months: No Number of Cigarettes Smoked Daily: 20 Information on smoking cessation initiated: No Hx Alcohol Use: No Drug/Substance Use Hx: No Substance Use Type: None Hx Substance Use Treatment: No <Melina Sherwood - Last Filed: 08/05/18 06:21> - Past Medical History Allergies/Adverse Reactions: Allergies Allergy/AdvReac Type Severity Reaction Status Date / Time peanut Allergy Intermediate Swelling Verified 07/11/18 11:52 Home Medications: Ambulatory Orders Insulin Lispro [Humalog] 100 unit SQ TID 08/18/16 Amox-Tr/K Cl [Augmentin 875-125mg Tablet -] 1 tab PO BID 7 Days #14 tablet 07/12 oxyCODONE HCL [Roxicodone -] 5 mg PO Q4H PRN #10 tablet MDD 30mg 07/12/18 Metformin HCl [Glucophage] 1,000 mg PO BID #60 tablet 08/05/18 Nystatin Oral Suspension - [Nystatin Oral Susp 022954 Units/5 ML -] 500,000 units PO Q6H #28 cup 08/05/18 Penicillin V Potassium [Pen Vee K -] 500 mg PO TID #21 tablet 08/05/18 Review of Systems - Review of Systems Comments:: General: No fevers, no chills, no weight or appetite change, no malaise HEENT: No changes in vision, no changes in hearing, no congestion. +sore throat CV: No palpitations, no LE edema. +b/l lower chest pain Pulm: No SOB, no cough, no wheezing. +pleuritic pain GI: No nausea or vomiting, no change in bowel habits, no melena. +Upper abdominal pain : No frequency, no urgency, no dysuria Musc: No back pain, no joint swelling, no recent injury Skin: No rash, no lesions, no erythema Endo: No excessive thirst, no heat/cold intolerance. +IDDM Heme: No unusual bruising or bleeding, no swollen glands Neuro: No syncope, no numbness/tingling, no focal weakness Vasc: No claudication Psych: No recent change in mood, no SI or HI <Melina Sherwood - Last Filed: 08/05/18 06:21> *Physical Exam - Vital Signs Last Vital Signs Temp Pulse Resp BP Pulse Ox 98.6 F 82 18 112/78 97 08/05/18 02:52 08/05/18 02:52 08/05/18 02:52 08/05/18 02:52 08/05/18 02:52 <Tonja Espitia - Last Filed: 08/05/18 05:59> - Vital Signs Last Vital Signs Temp Pulse Resp BP Pulse Ox 98.6 F 82 18 110/75 97 08/05/18 02:45 08/05/18 02:45 08/05/18 02:45 08/05/18 02:45 08/05/18 02:45 - Physical Exam Comments: General: Comfortable, no acute distress HEENT: PERRL, EOMI, MMM, voice normal, normal neck ROM. B/L tonsils w/ erythema and white exudate. Cards: RRR, no murmur appreciated Pulm: Comfortable on room air, clear to auscultation bilaterally Abd: Soft, nondistended. TTP in b/l upper abdomen : No CVA tenderness Ext: Atraumatic. No LE edema. ROM intact. Strength 5/5 and equal bilaterally Vasc: Extremities WWP. Palpable radial and pedal pulses bilaterally Skin: Normal color, no rashes or lesions Neuro: A&Ox3, CN grossly intact, normal speech, motor/sensory grossly intact and symmetric Psych: Mood appropriate to situation <Melina Sherwood - Last Filed: 08/05/18 06:21> Moderate Sedation - Procedure Monitoring Vital Signs: Procedure Monitoring Vital Signs Temperature 98.6 F 08/05/18 02:52 Pulse Rate 82 08/05/18 02:52 Respiratory Rate 18 08/05/18 02:52 Blood Pressure 112/78 08/05/18 02:52 O2 Sat by Pulse Oximetry (%) 97 08/05/18 02:52 <Tonja Espitia - Last Filed: 08/05/18 05:59> - Procedure Monitoring Vital Signs: Procedure Monitoring Vital Signs Temperature 98.6 F 08/05/18 02:45 Pulse Rate 82 08/05/18 02:45 Respiratory Rate 18 08/05/18 02:45 Blood Pressure 110/75 08/05/18 02:45 O2 Sat by Pulse Oximetry (%) 97 08/05/18 02:45 <Melina Sherwood - Last Filed: 08/05/18 06:21> ED Treatment Course - LABORATORY CBC & Chemistry Diagram: 08/05/18 02:52 08/05/18 02:52 - ADDITIONAL ORDERS Additional order review: Laboratory Results 08/05/18 08/05/18 04:15 02:52 Sodium Cancelled Potassium Cancelled Chloride Cancelled Carbon Dioxide Cancelled Anion Gap Cancelled BUN Cancelled Creatinine Cancelled Creat Clearance w eGFR Cancelled POC Glucometer [phone] Random Glucose Cancelled Calcium Cancelled Phosphorus Cancelled Magnesium Cancelled Total Bilirubin Cancelled AST Cancelled ALT Cancelled Alkaline Phosphatase Cancelled Total Protein Cancelled Albumin Cancelled Lipase Cancelled 08/05/18 08/05/18 04:15 02:52 RBC 4.90 MCV 93.4 MCHC 36.0 H RDW 12.6 MPV 11.5 H D Neutrophils % 72.9 Lymphocytes % 15.1 Monocytes % 11.4 H Eosinophils % 0.2 Basophils % 0.4 POC Glucometer [phone] - Medications Given in the ED: ED Medications Discontinued Medications Generic Name Dose Route Start Last Admin Trade Name Ravi PRN Reason Stop Dose Admin Clindamycin Phosphate 600 mg in 50 mls @ 100 mls/hr 08/05/18 03:08 08/05/18 03:49 Cleocin 600 Mg Premix Ivpb - IVPB 08/05/18 03:37 100 mls/hr ONCE ONE Administration Protocol Famotidine/Sodium Chloride 20 mg in 50 mls @ 100 mls/hr 08/05/18 03:08 03:49 Pepcid 20 Mg Premixed Ivpb - IVPB 08/05/18 03:37 100 mls/hr ONCE ONE Administration Insulin Human Regular 8 units 08/05/18 04:19 08/05/18 04:29 Novolin R Vial *For Ivpush Or Iv Drip Only* IVPUSH 08/05/18 04:20 8 units ONCE ONE Administration Nystatin 500,000 units 08/05/18 04:22 08/05/18 04:38 Nystatin Oral Suspension - PO 08/05/18 04:23 500,000 units ONCE ONE Administration Sodium Chloride 1,000 ml 08/05/18 03:08 08/05/18 03:49 Normal Saline - IV 08/05/18 03:09 1,000 ml ONCE ONE Administration <Tonja Espitia - Last Filed: 08/05/18 05:59> - LABORATORY CBC & Chemistry Diagram: 08/05/18 02:52 08/05/18 02:52 <Melina Sherwood - Last Filed: 08/05/18 06:21> Medical Decision Making - Medical Decision Making 08/05/18 03:39 Adam Le is a 23yo man with a h/o IDDM who presents with throat pain and b /l upper abdominal v low chest pain. - Tonsils w/ erythema and exudates c/w strep. Reports throat pain, increased with swallowing. Could also be thrush given diabetes and unknown glucose control. Sending rapid strep swab. - Abd pain ddx includes dka, pancreatitis, cholecystitis, gastritis, pneumonia. Could have mono as he has throat pain and upper abd pain. Pleuritic in nature and b/l, could be secondary to muscle aches from throat infection - CBC, CMP, mag, phos, lipase sent to evaluate - EKG completed at arrival, NSR. Heart/lung exam normal, no report of cough or wheezing. Low suspicion for cardiac or pulmonary pathology. - Has not eaten in over 1 day. 1L NS, famotidine for rehydration and for stomach pain - 600mg IV clindamycin for suspected strep. If rapid strep positive, will give IM penicillin as pt reports medication non-compliance and lack of follow up in the past. 08/05/18 04:21 - Strep negative - Glucose in 300's on fingerstick. Giving 8u IV insulin - Chemistry hemolized - CBC without abnormalities. Kane, pneumonia or surgical abdominal pathology significantly less likely with lack of fever or leukocytosis. 08/05/18 04:45 - Pt initially refused insulin, reported that his sugar is always in the 300-700 's and this is normal for him. Reports that he faints if his sugar is under 200. Explained to Mr Rey that this is very high and is likely to lead to complications, both immediate and delayed. He insists that he is different than other people. - Declined repeat chemistry - Will repeat fingerstick in 1 hour after completing - Giving nystatin swish/swallow due to concern for thrush with uncontrolled sugars. Will also d/c with antibiotics for throat infection. 08/05/18 05:32 - Sleeping comfortably - Did eventually consent to IV insulin - Will recheck glucose and d/c home with follow up. 08/05/18 06:21 - Fingerstick glucose decreased to 149. - Appears clinically improved - D/C home Discussed with Dr Espitia. Melina Sherwood PGY1 <Melina Sherwood - Last Filed: 08/05/18 06:21> *DC/Admit/Observation/Transfer <Tonja Espitia - Last Filed: 08/05/18 05:59> - Discharge Dispostion Decision to Admit order: No <Melina Sherwood - Last Filed: 08/05/18 06:21> Diagnosis at time of Disposition: Hyperglycemia, Tonsillar exudate, Upper abdominal pain, Pharyngitis, Josephine infection of mouth - Discharge Dispostion Disposition: HOME Condition at time of disposition: Stable - Prescriptions Prescriptions: Metformin HCl [Glucophage] 1,000 mg PO BID #60 tablet Nystatin Oral Suspension - [Nystatin Oral Susp 525074 Units/5 ML -] 500,000 units PO Q6H #28 cup Penicillin V Potassium [Pen Vee K -] 500 mg PO TID #21 tablet - Referrals Referrals: [facility] [place] [Provider Group] - Patient Instructions Printed Discharge Instructions: DI for Thrush, DI for Diabetes Type 2 Additional Instructions: Discharge Instructions: You were seen in the emergency department with a sore throat and abdominal pain. You had a strep throat test that was negative. Your blood sugars were very high. You had IV insulin and IV fluids given to help bring down your blood sugar. You were noted to have white patches on your tonsils. These may be a bacterial infection causing the sore throat, but they may be a fungal infection called thrush that is caused by your very high blood sugars. You have been prescribed medications for both of these. Home Care: - You have been prescribed a fungus medication called Nystatin. Swish this around your mouth and then swallow it as prescribed - You have also been prescribed an antibiotic, penicillin, for suspected throat infection. Take this twice per day until it is finished. Do not stop taking it early even if you feel better. - You have been prescribed one of your diabetes medications, metformin. Make sure you take this twice per day as prescribed. You will likely need to start using insulin at home again too. - Check your blood sugars at least twice per day at home. They should be between 80-130 before you eat and no higher than 180 after eating. Follow Up: - You have been referred to the [facility] internal medicine clinic for follow up of your diabetes. Make an appointment within the next week. They will likely need to run additional tests and can refer you to an environmental health safety engineer (diabetes doctor) if needed to help control your blood sugars. - Seek immediate medical care if your abdominal pain becomes worse, you cannot eat or have persistent vomiting, your blood sugars are over 300 and do not come down with medication, or you have any medical emergency.
[2018-08-05 04:00] LABS: BASO % 0.4 % (0-2.0); EOS % 0.2 % (0-4.5); HEMATOCRIT 45.7 % (35.4-49); HEMOGLOBIN 16.4 GM/dL (11.7-16.9); LYMPH % 15.1 % (8-40); MCH 33.6 pg (25.7-33.7); MEAN CELL VOLUME 93.4 fl (80-96); MEAN PLT VOLUME 11.5 fl (7.5-11.1); MONO % 11.4 % (3.8-10.2); NEUT % 72.9 % (42.8-82.8); PLATELET COUNT 189 K/MM3 (134-434); RDW 12.6 % (11.9-15.9); WHITE BLOOD COUNT 9.7 K/mm3 (4.0-10.0)
[2018-08-05 04:06] VITALS: BP 112/78
[2018-08-05] MEDS ORDERED: HEMOQUE TEST 1 EACH EACH ONE (04:12)
[2018-08-05] MEDS ORDERED: INSULIN REGULAR HUMAN 100 UNITS/ML *VIAL IVPUSH ONE (04:19)
[2018-08-05] MEDS ORDERED: INSULIN REGULAR HUMAN 100 UNITS/ML *VIAL ONE (04:20)
[2018-08-05] MEDS ORDERED: NYSTATIN 500,000 UNITS/5 ML SUSPENSION PO ONE (04:22)
--- NOTE | 2018-08-10 13:33 | EKG ---
Test Reason : Blood Pressure : / mmHG Vent. Rate : 088 BPM Atrial Rate : 088 BPM P-R Int : 132 ms QRS Dur : 094 ms QT Int : 364 ms P-R-T Axes : 069 058 048 degrees QTc Int : 440 ms NORMAL SINUS RHYTHM NORMAL ECG WHEN COMPARED WITH ECG OF 18-AUG-2016 15:45, NO SIGNIFICANT CHANGE WAS FOUND Confirmed by ELVIS BOYD MD ([id number]) on 08/10/2018 1:33:09 PM Referred By: Confirmed By:ELVIS BOYD MD
== END 2018-08-05 06:39 | disposition home or self-care (01) ==
LOC: JER 02:41
PROC: 3E03329 Introduction of Other Anti-infective into Peripheral Vein, Percutaneous Approach (ICD-10-PCS; principal; 2018-08-05)
PROC: 3E033GC Introduction of Other Therapeutic Substance into Peripheral Vein, Percutaneous Approach (ICD-10-PCS; 2018-08-05)
PROC: 3E013VG Introduction of Insulin into Subcutaneous Tissue, Percutaneous Approach (ICD-10-PCS; 2018-08-05)
DX: E11.65 Type 2 diabetes mellitus with hyperglycemia (principal); M54.9 Dorsalgia, unspecified; J06.9 Acute upper respiratory infection, unspecified; B37.0 Candidal stomatitis
CPT/HCPCS: 36415; 82962; 85025; 87070; 87880; 93005; 93010; 96365; 96368; 96375; 99284-25

== ENCOUNTER 2018-09-04 21:19 | Emergency (ER) | payer OTHER ==
--- NOTE | 2018-09-04 21:43 | PDOC ---
Rapid Medical Evaluation Chief Complaint: Blood Sugar Problem Time Seen by Provider: 09/04/18 21:41 Medical Evaluation: Allergies Allergy/AdvReac Type Severity Reaction Status Date / Time peanut Allergy Intermediate Swelling Verified 07/11/18 11:52 09/04/18 21:42 I performed a brief in person evaluation. CC: Elevated BS HPI: Pt is a 23 Yo male with a hx of DM who states that he glucometer read high. PE: Skin: Clear Lungs: Clear Heart: RRR MS: Moves all extremities without difficulty Neuro: Alert Psych: Appropriate affect Labs drawn at triage. Pt will go to main ED for further evaluation. Discharge Disposition - Diagnosis Hyperglycemia - Referrals - Patient Instructions - Post Discharge Activity
[2018-09-04 21:48] VITALS: BP 130/75; PULSE 99; TEMP 98.2; BMI 29.0
== END 2018-09-04 23:06 | disposition left against medical advice (07) ==
LOC: JER 21:19
DX: Z53.21 Procedure and treatment not carried out due to patient leaving prior to being seen by health care provider (principal)
CPT/HCPCS: 99281-25

== ENCOUNTER 2018-10-24 01:25 | Emergency (ER) | payer OTHER ==
[2018-10-24 01:53] VITALS: BP 128/72; PULSE 101; TEMP 97.7; BMI 30.1
--- NOTE | 2018-10-24 02:10 | PDOC ---
History of Present Illness - General History Source: Patient Exam Limitations: No Limitations - History of Present Illness Initial Comments: 10/24/18 02:23 The patient is a 23 year old male with a significant past medical history of diabetes9 non compliant with medication) who presents to the emergency department with epigastric abdominal pain for about 1 week. The patient reports that his epigastric pain feels like a sharp sensation and is more left sided. He states that his pain is worsened with eating and drinking. He denies any recent injury, trauma or heavy lifting. He denies any fever, chills, nausea, vomiting, diarrhea, constipation or urinary symptoms . he denies any chest pain , shortness or breath, headache or dizziness. The patient denies any other complaints. <Tez Joe - Last Filed: 10/24/18 05:45> <Chelsey Mendez - Last Filed: 10/24/18 05:49> - General Chief Complaint: Pain Stated Complaint: ABD PAIN Time Seen by Provider: 10/24/18 02:07 Past History <Tez Joe - Last Filed: 10/24/18 05:45> - Past Medical History Anemia: No Asthma: No Cancer: No Cardiac Disorders: No CVA: No COPD: No CHF: No Dementia: No Diabetes: Yes GI Disorders: No Disorders: No HTN: No Hypercholesterolemia: No Liver Disease: No Seizures: No Thyroid Disease: No - Immunization History Immunization Up to Date: Yes - Suicide/Smoking/Psychosocial Hx Smoking Status: Yes Smoking History: Current every day smoker Have you smoked in the past 12 months: Yes Number of Cigarettes Smoked Daily: 3 Information on smoking cessation initiated: Yes Hx Alcohol Use: No Drug/Substance Use Hx: Yes (MARIJUANA) Substance Use Type: None Hx Substance Use Treatment: No <Chelsey Mendez - Last Filed: 10/24/18 05:49> - Past Medical History Allergies/Adverse Reactions: Allergies Allergy/AdvReac Type Severity Reaction Status Date / Time peanut Allergy Intermediate Swelling Verified 10/24/18 01:52 Home Medications: Ambulatory Orders Insulin Lispro [Humalog] 100 unit SQ TID 08/18/16 Metformin HCl [Glucophage] 1,000 mg PO BID #60 tablet 10/24/18 Review of Systems - Review of Systems Able to Perform ROS?: Yes Comments:: 10/24/18 02:23 GENERAL/CONSTITUTIONAL: No fever or chills. No weakness. HEAD, EYES, EARS, NOSE AND THROAT: No change in vision. No ear pain or discharge. No sore throat. GASTROINTESTINAL: (+)epigastric pain.No nausea, vomiting, diarrhea or constipation. GENITOURINARY: No dysuria, frequency, or change in urination. CARDIOVASCULAR: No chest pain or shortness of breath. RESPIRATORY: No cough, wheezing, or hemoptysis. MUSCULOSKELETAL: No joint or muscle swelling or pain. No neck or back pain. SKIN: No rash NEUROLOGIC: No headache, vertigo, loss of consciousness, or change in strength/ sensation. ENDOCRINE: No increased thirst. No abnormal weight change. HEMATOLOGIC/LYMPHATIC: No anemia, easy bleeding, or history of blood clots. ALLERGIC/IMMUNOLOGIC: No hives or skin allergy. <Tez Joe - Last Filed: 10/24/18 05:45> *Physical Exam - Vital Signs Last Vital Signs Temp Pulse Resp BP Pulse Ox 97.7 F 101 H 17 128/72 97 10/24/18 01:50 10/24/18 01:50 10/24/18 01:50 10/24/18 01:50 10/24/18 01:50 - Physical Exam Comments: 10/24/18 02:23 GENERAL: Awake, in no acute distress HEAD: No signs of trauma EYES: PERRLA, EOMI, sclera anicteric, conjunctiva clear, visual acuity grossly intact ENT: Auricles normal inspection, hearing grossly normal, nares patent, oropharynx clear without exudates. Moist mucosa NECK: Normal ROM, supple, no lymphadenopathy, JVD, or masses LUNGS: Breath sounds equal, clear to auscultation bilaterally. No wheezes, and no crackles. Normal work of breathing. HEART: Regular rate and rhythm, normal S1 and S2, no murmurs, rubs or gallops ABDOMEN: (+)LUQ and mid-epigastric tenderness with voluntary guarding. Soft, normoactive bowel sounds. No rebound. No masses. Non-distended. CHEST WALL: BACK: No midline tenderness. EXTREMITIES: Normal range of motion, no edema. No clubbing or cyanosis. No erythema, or tenderness NEUROLOGICAL: Alert, and fully oriented x4, Cranial nerves II through XII grossly intact. Normal speech, normal gait. DTRs 2/4 bilaterally. SKIN: Warm, Dry, normal turgor, no rashes or lesions noted. <Tez Joe - Last Filed: 10/24/18 05:45> - Vital Signs Last Vital Signs Temp Pulse Resp BP Pulse Ox 97.7 F 101 H 17 128/72 97 10/24/18 01:50 10/24/18 01:50 10/24/18 01:50 10/24/18 01:50 10/24/18 01:50 <Chelsey Mendez - Last Filed: 10/24/18 05:49> Moderate Sedation - Procedure Monitoring Vital Signs: Procedure Monitoring Vital Signs Temperature 97.7 F 10/24/18 01:50 Pulse Rate 101 H 10/24/18 01:50 Respiratory Rate 17 10/24/18 01:50 Blood Pressure 128/72 10/24/18 01:50 O2 Sat by Pulse Oximetry (%) 97 10/24/18 01:50 <Tez Joe - Last Filed: 10/24/18 05:45> - Procedure Monitoring Vital Signs: Procedure Monitoring Vital Signs Temperature 97.7 F 10/24/18 01:50 Pulse Rate 101 H 10/24/18 01:50 Respiratory Rate 17 10/24/18 01:50 Blood Pressure 128/72 10/24/18 01:50 O2 Sat by Pulse Oximetry (%) 97 10/24/18 01:50 <Chelsey Mendez - Last Filed: 10/24/18 05:49> ED Treatment Course - LABORATORY CBC & Chemistry Diagram: 10/24/18 02:35 10/24/18 05:00 <Tez Joe - Last Filed: 10/24/18 05:45> - LABORATORY CBC & Chemistry Diagram: 10/24/18 02:35 10/24/18 05:00 <Chelsey Mendez - Last Filed: 10/24/18 05:49> Medical Decision Making - Critical Care Time Total Critical Care Time (minutes): 45 Critical Care Statement: The care of this patient involved high complexity decision making to prevent further life threatening deterioration of the patient 's condition and/or to evaluate & treat vital organ system(s) failure or risk of failure. 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 <Tez Joe - Last Filed: 10/24/18 05:45> - Discharge Dispostion Decision to Admit order: No - Attestations Physician Attestion: 10/24/18 05:43 I, Dr Chelsey Mendez, attest that this document has been prepared under my direction and personally reviewed by me in its entirety. I further attest, that it accurately reflects all work, procedures and medical decision making performed by me. <Chelsey Mendez - Last Filed: 10/24/18 05:49> Diagnosis at time of Disposition: Hyperglycemia due to type 1 diabetes mellitus - Discharge Dispostion Disposition: HOME Condition at time of disposition: Improved - Prescriptions Prescriptions: Metformin HCl [Glucophage] 1,000 mg PO BID #60 tablet - Patient Instructions Printed Discharge Instructions: Type 1 Diabetes, DI for Hyperglycemia -- Adult Additional Instructions: Continue your insulin as instructed. You have been given a refill of your metformin. See her primary care physician as well. If you develop vomiting fever or return of abdominal pain return to the emergency department for repeat evaluation.
[2018-10-24] MEDS ORDERED: FAMOTIDINE 20 MG/50 ML IVPB 20 MG/50 ML MG IVPB ONE ×2 (02:13→02:35)
[2018-10-24] MEDS ORDERED: MAG HYDROX/AL HYDROX/SIMETH 30 ML UNIT-DOSE CUP PO ONE (02:13)
[2018-10-24] MEDS ORDERED: SODIUM CHLORIDE 0.9% 500 ML INFUS.BAG IV ONE (02:13)
[2018-10-24] MEDS ORDERED: LIDOCAINE VISCOUS 2% ORAL/TOP 20 ML UNIT-DOSE CUP MM ONE (02:13)
[2018-10-24] MEDS ORDERED: MAG HYDROX/AL HYDROX/SIMETH 30 ML UNIT-DOSE CUP ONE (02:35)
[2018-10-24] MEDS ORDERED: LIDOCAINE VISCOUS 2% ORAL/TOP 20 ML UNIT-DOSE CUP ONE (02:35)
[2018-10-24 02:39] LABS: HEMATOCRIT 42.8 % (35.4-49); HEMOGLOBIN 15.2 GM/dL (11.7-16.9); MCH 34.1 pg (25.7-33.7); MCHC 35.5 g/dl (32.0-35.9); MEAN CELL VOLUME 96.1 fl (80-96); MEAN PLT VOLUME 11.1 fl (7.5-11.1); PLATELET COUNT 177 K/MM3 (134-434); RBC 4.46 M/mm3 (4.00-5.60); RDW 12.7 % (11.9-15.9); WHITE BLOOD COUNT 7.2 K/mm3 (4.0-10.0)
[2018-10-24 03:02] LABS: ALBUMIN 3.7 g/dl (3.4-5.0); ALK PHOS 147 U/L (45-117); ANION GAP 6 MMOL/L (8-16); BILIRUBIN,TOTAL 0.5 mg/dL (0.2-1); BLOOD UREA NITROGEN 8 mg/dL (7-18); CALCIUM 8.6 mg/dL (8.5-10.1); CHLORIDE 91 mmol/L (98-107); CO2 29 mmol/L (21-32); CREATININE 1.2 mg/dL (0.55-1.3); LIPASE 215 U/L (73-393); POTASSIUM 4.5 mmol/L (3.5-5.1); SGOT/AST 12 U/L (15-37); SGPT/ALT 21 U/L (13-61); SODIUM 126 mmol/L (136-145); TOT PROT 7.1 g/dl (6.4-8.2)
[2018-10-24 03:04] LABS: GLUCOSE,RANDOM 752 mg/dL (74-106)
[2018-10-24] MEDS ORDERED: SODIUM CHLORIDE 1,000 ML IV STA (03:08)
[2018-10-24] MEDS ORDERED: INSULIN REGULAR HUMAN 100 UNITS/ML *VIAL SQ ONE ×2 (03:08→04:17)
[2018-10-24] MEDS ORDERED: INSULIN REGULAR HUMAN 100 UNITS/ML *VIAL ONE ×2 (03:25→04:19)
[2018-10-24 03:31] LABS: VENOUS PC02 51.2 mmHg (38-52); VENOUS PH 7.33 (7.32-7.42); VENOUS PO2 33.4 mmHg (28-48)
[2018-10-24 04:31] LABS: URINE APPEARANCE CLEAR; URINE BILIRUBIN NEGATIVE (<2.0 mg/dL); URINE COLOR COLORLESS; URINE GLUCOSE (UA) 3+ (NEGATIVE); URINE KETONE NEGATIVE (NEGATIVE); URINE LEUK ESTERASE NEGATIVE (NEGATIVE); URINE NITRITE NEGATIVE (NEGATIVE); URINE PROTEIN NEGATIVE (NEGATIVE); URINE UROBILINOGEN NEGATIVE mg/dL (0.2-1.0)
[2018-10-24 05:39] LABS: ANION GAP 8 MMOL/L (8-16); BLOOD UREA NITROGEN 7 mg/dL (7-18); CALCIUM 7.7 mg/dL (8.5-10.1); CHLORIDE 101 mmol/L (98-107); CO2 24 mmol/L (21-32); CREATININE 0.9 mg/dL (0.55-1.3); POTASSIUM 3.9 mmol/L (3.5-5.1); SODIUM 133 mmol/L (136-145)
[2018-10-24 05:40] LABS: GLUCOSE,RANDOM 445 mg/dL (74-106)
[2018-10-24 11:58] LABS: ACETONE SERUM NEGATIVE (NEGATIVE)
== END 2018-10-24 06:15 | disposition home or self-care (01) ==
LOC: JER 01:25
PROC: 3E0337Z Introduction of Electrolytic and Water Balance Substance into Peripheral Vein, Percutaneous Approach (ICD-10-PCS; principal; 2018-10-24)
PROC: 3E033GC Introduction of Other Therapeutic Substance into Peripheral Vein, Percutaneous Approach (ICD-10-PCS; 2018-10-24)
PROC: 3E013VG Introduction of Insulin into Subcutaneous Tissue, Percutaneous Approach (ICD-10-PCS; 2018-10-24)
PROC: 3E013VG Introduction of Insulin into Subcutaneous Tissue, Percutaneous Approach (ICD-10-PCS; 2018-10-24)
DX: E10.65 Type 1 diabetes mellitus with hyperglycemia (principal); Z79.4 Long term (current) use of insulin
CPT/HCPCS: 36415; 80048; 80053; 81003; 82009; 82803; 82962; 83690; 85027; 96361; 96365; 96372; 99282-25; J7030

== ENCOUNTER 2018-12-09 01:55 | Observation (INO) | payer OTHER ==
[2018-12-09 02:29] VITALS: BP 123/73; PULSE 103; TEMP 99.4; BMI 61.8
--- NOTE | 2018-12-09 02:54 | PDOC ---
History of Present Illness - General Chief Complaint: Pain, Acute Stated Complaint: ABDOMINAL PAIN Time Seen by Provider: 12/09/18 02:54 History Source: Patient Exam Limitations: No Limitations - History of Present Illness Initial Comments: 12/09/18 06:52 Pt has periumbilical pain; uncontrolled blood sugar,. as he has no docs and no desire to care for his DM. Timing/Duration: 24 hours Past History - Travel Traveled outside of the country in the last 30 days: No Close contact w/someone who was outside of country & ill: No - Past Medical History Allergies/Adverse Reactions: Allergies Allergy/AdvReac Type Severity Reaction Status Date / Time peanut Allergy Intermediate Swelling Verified 10/24/18 01:52 Home Medications: Ambulatory Orders Metformin HCl [Glucophage] 1,000 mg PO BID 12/09/18 Anemia: No Asthma: No Cancer: No Cardiac Disorders: No CVA: No COPD: No CHF: No Dementia: No Diabetes: Yes GI Disorders: No Disorders: No HTN: No Hypercholesterolemia: No Liver Disease: No Seizures: No Thyroid Disease: No - Immunization History Immunization Up to Date: Yes - Suicide/Smoking/Psychosocial Hx Smoking Status: Yes Smoking History: Current every day smoker Have you smoked in the past 12 months: Yes Number of Cigarettes Smoked Daily: 6 Information on smoking cessation initiated: No Hx Alcohol Use: No Drug/Substance Use Hx: No Substance Use Type: None Hx Substance Use Treatment: No Review of Systems - Review of Systems Constitutional: Yes: Loss of Appetite. No: Symptoms Reported, See HPI, Chills, Diaphoresis, Fever, Malaise, Night Sweats, Weakness, Weight Stable, Unintentional Wgt. Loss, Unexplained wgt Loss, Other HEENTM: No: Symptoms Reported, See HPI, Eye Pain, Blurred Vision, Tearing, Recent change in vision, Double Vision, Cataracts, Ear Pain, Ocular Prothesis, Ear Discharge, Nose Pain, Nose Congestion, Tinnitus, Nose Bleeding, Hearing Loss , Throat Pain, Throat Swelling, Mouth Pain, Dental Problems, Difficulty Swallowing, Mouth Swelling, Other Respiratory: No: Symptoms reported, See HPI, Cough, Orthopnea, Shortness of Breath, SOB with Exertion, SOB at Rest, Stridor, Wheezing, Productive cough, Hemoptysis, Other Cardiac (ROS): No: Symptoms Reported, See HPI, Chest Pain, Edema, Irregular Heart Rate, Lightheadedness, Palpitations, Syncope, Chest Tightness, Other ABD/GI: Yes: Other (belly button pain) : No: Symptoms Reported, See HPI, Burning, Dysuria, Discharge, Frequency, Flank Pain, Hematuria, Incontinence, Pain, Urgency, Testicular Mass, Testicular Swelling, Lesions, Testicular Pain, Other Musculoskeletal: No: Symptoms Reported, See HPI, Back Pain, Gout, Joint Pain, Joint Swelling, Muscle Pain, Muscle Weakness, Neck Pain, Joint Stiffness, Other Integumentary: No: Symptoms Reported, See HPI, Bruising, Change in Color, Change in Hair/Nails, Dryness, Erythema, Flushing, Lesions, Lumps, Pallor, Pruritus, Rash, Sweating, Other Neurological: No: Symptoms reported, See HPI, Headache, Numbness, Paresthesia, Pre-Existing Deficit, Seizure, Tingling, Tremors, Weakness, Unsteady Gait, Ataxia, Dizziness, Other *Physical Exam - Vital Signs Last Vital Signs Temp Pulse Resp BP Pulse Ox 99.4 F 103 H 20 123/73 98 12/09/18 02:25 12/09/18 02:25 12/09/18 02:25 12/09/18 02:25 12/09/18 02:25 - Physical Exam General Appearance: Yes: Nourished, Appropriately Dressed. No: Apparent Distress HEENT: positive: EOMI, MINI, Normal ENT Inspection, Normal Voice, Pharynx Normal Neck: positive: Trachea midline, Supple Respiratory/Chest: positive: Lungs Clear, Normal Breath Sounds Cardiovascular: positive: Regular Rhythm, Regular Rate, S1, S2 Gastrointestinal/Abdominal: positive: Tender, Guarding, Tenderness, Mass ( periumbilical swelling and tenderness). 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 Pt was refusing IV; we finally convinced pt to allow us to place an IV. We will treat with regular insulin 10units IV as well as 1L NSS. 12/09/18 06:35 Pt will be signed out to the day team. 12/09/18 06:49 I explained to patient that he needs abx for a pneumonia and a periumbilical infection. He wants to sign AMA. I convinced him to stay for abx and IV hydration and insulin. Pt has no PMD and no place to follow up. He will be signed out to AM ER docs. *DC/Admit/Observation/Transfer Diagnosis at time of Disposition: Diabetes, Cellulitis, umbilical, Pneumonia - Discharge Dispostion Condition at time of disposition: Guarded - Referrals - Patient Instructions - Post Discharge Activity
[2018-12-09] MEDS ORDERED: SODIUM CHLORIDE 0.9% 500 ML INFUS.BAG IV ONE ×2 (03:22→06:33)
[2018-12-09 03:40] LABS: BASO % 0.5 % (0-2.0); EOS % 0.8 % (0-4.5); HEMOGLOBIN 16.1 GM/dL (11.7-16.9); LYMPH % 15.7 % (8-40); MCH 32.2 pg (25.7-33.7); MCHC 34.9 g/dl (32.0-35.9); MEAN CELL VOLUME 92.3 fl (80-96); MEAN PLT VOLUME 11.2 fl (7.5-11.1); MONO % 7.2 % (3.8-10.2); NEUT % 75.8 % (42.8-82.8); PLATELET COUNT 200 K/MM3 (134-434); RBC 4.98 M/mm3 (4.00-5.60); RDW 11.9 % (11.9-15.9); WHITE BLOOD COUNT 9.8 K/mm3 (4.0-10.0)
[2018-12-09] MEDS ORDERED: INSULIN REGULAR HUMAN 100 UNITS/ML *VIAL SQ ONE (03:57)
[2018-12-09] MEDS ORDERED: INSULIN REGULAR HUMAN 100 UNITS/ML *VIAL ONE ×2 (04:00→06:34)
[2018-12-09 04:15] LABS: ALBUMIN 4.2 g/dl (3.4-5.0); ALK PHOS 181 U/L (45-117); ANION GAP 10 MMOL/L (8-16); BILIRUBIN,TOTAL 0.8 mg/dL (0.2-1); BLOOD UREA NITROGEN 8 mg/dL (7-18); CALCIUM 9.4 mg/dL (8.5-10.1); CHLORIDE 92 mmol/L (98-107); CO2 27 mmol/L (21-32); POTASSIUM 3.8 mmol/L (3.5-5.1); SGOT/AST 9 U/L (15-37); SGPT/ALT 19 U/L (13-61); SODIUM 130 mmol/L (136-145)
[2018-12-09 04:16] LABS: GLUCOSE,RANDOM 454 mg/dL (74-106)
[2018-12-09 05:14] LABS: ACETONE SERUM TRACE (NEGATIVE)
[2018-12-09] MEDS ORDERED: INSULIN REGULAR HUMAN 100 UNITS/ML *VIAL IVPUSH ONE (06:33)
[2018-12-09] MEDS ORDERED: AZITHROMYCIN IVPB 500 MG in DEXTROSE 5%-WATER - 250 ML IVPB ONE (06:37)
[2018-12-09] MEDS ORDERED: CEFTRIAXONE 1 GM in DEXTROSE 5%-WATER - 50 ML IVPB ONE (06:37)
[2018-12-09] MEDS ORDERED: CEFTRIAXONE 1 GM/50 ML BAG ONE (06:45)
[2018-12-09] MEDS ORDERED: AZITHROMYCIN IVPB 500 MG/250 ML BAG IVPB ONE (06:59)
--- NOTE | 2018-12-09 07:44 | PDOC ---
*Physical Exam - Vital Signs Last Vital Signs Temp Pulse Resp BP Pulse Ox 99.4 F 103 H 20 123/73 98 12/09/18 02:25 12/09/18 02:25 12/09/18 02:25 12/09/18 02:25 12/09/18 02:25 ED Treatment Course - LABORATORY CBC & Chemistry Diagram: 12/09/18 03:30 12/09/18 03:30 - ADDITIONAL ORDERS Additional order review: Laboratory Results 12/09/18 12/09/18 12/09/18 06:20 03:38 03:30 WBC RBC Hgb Hct MCV MCH MCHC RDW Plt Count MPV Absolute Neuts (auto) Neutrophils % Lymphocytes % Monocytes % Eosinophils % Basophils % Nucleated RBC % Sodium 130 L Potassium 3.8 Chloride 92 L Carbon Dioxide 27 Anion Gap 10 BUN 8 Creatinine 1.0 Creat Clearance w eGFR 91.05 POC Glucometer 455 481 Random Glucose 454 H* Calcium 9.4 Total Bilirubin 0.8 AST 9 L ALT 19 Alkaline Phosphatase 181 H Total Protein 8.0 Albumin 4.2 Acetone, Qual Trace 12/09/18 03:30 WBC 9.8 RBC 4.98 Hgb 16.1 Hct 46.0 MCV 92.3 MCH 32.2 MCHC 34.9 RDW 11.9 Plt Count 200 MPV 11.2 H Absolute Neuts (auto) 7.4 Neutrophils % 75.8 Lymphocytes % 15.7 Monocytes % 7.2 Eosinophils % 0.8 D Basophils % 0.5 Nucleated RBC % 0 Sodium Potassium Chloride Carbon Dioxide Anion Gap BUN Creatinine Creat Clearance w eGFR POC Glucometer Random Glucose Calcium Total Bilirubin AST ALT Alkaline Phosphatase Total Protein Albumin Acetone, Qual 12/09/18 12/09/18 12/09/18 06:20 03:38 03:30 RBC 4.98 MCV 92.3 MCHC 34.9 RDW 11.9 MPV 11.2 H Neutrophils % 75.8 Lymphocytes % 15.7 Monocytes % 7.2 Eosinophils % 0.8 D Basophils % 0.5 POC Glucometer 455 481 - RADIOLOGY Radiology Studies Ordered: Category Date Time Status CHEST PA & LAT [RAD] Stat Radiology 12/09/18 07:40 Ordered - Medications Given in the ED: ED Medications Discontinued Medications Generic Name Dose Route Start Last Admin Trade Name Freq PRN Reason Stop Dose Admin Azithromycin 500 mg/ Dextrose 250 mls @ 250 mls/hr 12/09/18 06:37 12/09/18 07 :03 IVPB 12/09/18 07:36 250 mls/hr ONCE ONE Administration Ceftriaxone Sodium 1 gm/ 50 mls @ 100 mls/hr 12/09/18 06:37 12/09/18 06:48 Dextrose IVPB 12/09/18 07:06 100 mls/hr ONCE ONE Administration Insulin Human Regular 10 units 12/09/18 03:57 12/09/18 04:02 Novolin R Vial *For Ivpush Or Iv Drip Only* SQ 12/09/18 03:58 10 units ONCE ONE Administration Insulin Human Regular 10 units 12/09/18 06:33 12/09/18 06:43 Novolin R Vial *For Ivpush Or Iv Drip Only* IVPUSH 12/09/18 06:34 10 units ONCE ONE Administration Sodium Chloride 1,000 ml 12/09/18 03:22 12/09/18 04:07 Normal Saline - IV 12/09/18 03:23 Not Given ONCE ONE Sodium Chloride 1,000 ml 12/09/18 06:33 12/09/18 06:43 Normal Saline - IV 12/09/18 06:34 1,000 ml ONCE ONE Administration Medical Decision Making - Medical Decision Making 12/09/18 07:40 Care received at 0700 Pt pending admission for PNA, hyperglycemia Covered with ceftriaxone and azithro Case discussed with Dr. Walker, pt admitted to /s obs Case discussed in detail with admitting physician including history, physical exam and ancillary studies. Admitting physician has assumed care for the patient, will follow all pending diagnostics and will complete the evaluation and treatment. *DC/Admit/Observation/Transfer Diagnosis at time of Disposition: Diabetes, Cellulitis, umbilical, Pneumonia - Discharge Dispostion Condition at time of disposition: Guarded Decision to Admit order: Yes - Referrals - Patient Instructions - Post Discharge Activity - Attestations Physician Attestion: 12/09/18 07:44 I, Dr. Josias Hwang MD, attest that this document has been prepared under my direction and personally reviewed by me in its entirety. I further attest, that it accurately reflects all work, treatment, procedures and medical decision -making performed by me.
[2018-12-09 08:30] LABS: URINE APPEARANCE CLEAR; URINE BILIRUBIN NEGATIVE (NEGATIVE); URINE COLOR YELLOW; URINE KETONE 40 mg/dl (NEGATIVE)
[2018-12-09 08:32] LABS: PH,URINE 5.5 (5.0-8.0)
[2018-12-09 08:33] LABS: URINE LEUK ESTERASE NEGATIVE (NEGATIVE); URINE NITRITE NEGATIVE (NEGATIVE); URINE PROTEIN NEGATIVE (NEGATIVE)
--- NOTE | 2018-12-09 09:13 | HP ---
CHIEF COMPLAINT: PCP: HISTORY OF PRESENT ILLNESS: ER course was notable for: (1) (2) (3) Recent Travel: PAST MEDICAL HISTORY: PAST SURGICAL HISTORY: Social History: Smoking: Alcohol: Drugs: Family History: Allergies peanut Allergy (Intermediate, Verified 10/24/18 01:52) Swelling HOME MEDICATIONS: Home Medications Medication Instructions Recorded Metformin HCl [Glucophage] 1,000 mg PO BID 12/09/18 REVIEW OF SYSTEMS CONSTITUTIONAL: Absent: fever, chills, diaphoresis, generalized weakness, malaise, loss of appetite, weight change HEENT: Absent: rhinorrhea, nasal congestion, throat pain, throat swelling, difficulty swallowing, mouth swelling, ear pain, eye pain, visual changes CARDIOVASCULAR: Absent: chest pain, syncope, palpitations, irregular heart rate, lightheadedness , peripheral edema RESPIRATORY: Absent: cough, shortness of breath, dyspnea with exertion, orthopnea, wheezing, stridor, hemoptysis GASTROINTESTINAL: Absent: abdominal pain, abdominal distension, nausea, vomiting, diarrhea, constipation, melena, hematochezia GENITOURINARY: Absent: dysuria, frequency, urgency, hesitancy, hematuria, flank pain, genital pain MUSCULOSKELETAL: Absent: myalgia, arthralgia, joint swelling, back pain, neck pain SKIN: Absent: rash, itching, pallor HEMATOLOGIC/IMMUNOLOGIC: Absent: easy bleeding, easy bruising, lymphadenopathy, frequent infections ENDOCRINE: Absent: unexplained weight gain, unexplained weight loss, heat intolerance, cold intolerance NEUROLOGIC: Absent: headache, focal weakness or paresthesias, dizziness, unsteady gait, seizure, mental status changes, bladder or bowel incontinence PSYCHIATRIC: Absent: anxiety, depression, suicidal or homicidal ideation, hallucinations. PHYSICAL EXAMINATION Vital Signs - 24 hr 12/09/18 02:25 Temperature 99.4 F Pulse Rate 103 H Respiratory 20 Rate Blood Pressure 123/73 O2 Sat by Pulse 98 Oximetry (%) GENERAL: Awake, alert, and fully oriented, in no acute distress. HEAD: Normal with no signs of trauma. EYES: Pupils equal, round and reactive to light, extraocular movements intact, sclera anicteric, conjunctiva clear. No lid lag. EARS, NOSE, THROAT: Ears normal, nares patent, oropharynx clear without exudates. Moist mucous membranes. NECK: Normal range of motion, supple without lymphadenopathy, JVD, or masses. LUNGS: Breath sounds equal, clear to auscultation bilaterally. No wheezes, and no crackles. No accessory muscle use. HEART: Regular rate and rhythm, normal S1 and S2 without murmur, rub or gallop. ABDOMEN: Soft, nontender, not distended, normoactive bowel sounds, no guarding, no rebound, no masses. No hepatomegaly or splenomegaly. MUSCULOSKELETAL: Normal range of motion at all joints. No bony deformities or tenderness. No CVA tenderness. UPPER EXTREMITIES: 2+ pulses, warm, well-perfused. No cyanosis. No clubbing. No peripheral edema. LOWER EXTREMITIES: 2+ pulses, warm, well-perfused. No calf tenderness. No peripheral edema. NEUROLOGICAL: Cranial nerves II-XII intact. Normal speech. Normal gait. PSYCHIATRIC: Cooperative. Good eye contact. Appropriate mood and affect. SKIN: Warm, dry, normal turgor, no rashes or lesions noted, normal capillary refill. Laboratory Results - last 24 hr 12/09/18 12/09/18 12/09/18 03:30 03:30 03:38 WBC 9.8 RBC 4.98 Hgb 16.1 Hct 46.0 MCV 92.3 MCH 32.2 MCHC 34.9 RDW 11.9 Plt Count 200 MPV 11.2 H Absolute Neuts (auto) 7.4 Neutrophils % 75.8 Lymphocytes % 15.7 Monocytes % 7.2 Eosinophils % 0.8 D Basophils % 0.5 Nucleated RBC % 0 Sodium 130 L Potassium 3.8 Chloride 92 L Carbon Dioxide 27 Anion Gap 10 BUN 8 Creatinine 1.0 Creat Clearance w eGFR 91.05 POC Glucometer 481 Random Glucose 454 H* Calcium 9.4 Total Bilirubin 0.8 AST 9 L ALT 19 Alkaline Phosphatase 181 H Total Protein 8.0 Albumin 4.2 Urine Color Urine Appearance Urine pH Ur Specific [place] Urine Protein Urine Glucose (UA) Urine Ketones Urine Blood Urine Nitrite Urine Bilirubin Urine Urobilinogen Ur Leukocyte Esterase Acetone, Qual Trace 12/09/18 12/09/18 04:40 06:20 WBC RBC Hgb Hct MCV MCH MCHC RDW Plt Count MPV Absolute Neuts (auto) Neutrophils % Lymphocytes % Monocytes % Eosinophils % Basophils % Nucleated RBC % Sodium Potassium Chloride Carbon Dioxide Anion Gap BUN Creatinine Creat Clearance w eGFR POC Glucometer 455 Random Glucose Calcium Total Bilirubin AST ALT Alkaline Phosphatase Total Protein Albumin Urine Color Yellow Urine Appearance Clear Urine pH 5.5 D Ur Specific [place] 1.050 H Urine Protein Negative Urine Glucose (UA) 1000 mg/dl Urine Ketones 40 mg/dl Urine Blood Negative Urine Nitrite Negative Urine Bilirubin Negative Urine Urobilinogen 1.0 Ur Leukocyte Esterase Negative Acetone, Qual Small cystic collection adjacent to the deep umbilicus with some haziness in the surrounding fat suggests a small subcutaneous posterior wall, or 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 Right lower lobe airspace opacity suggesting aspiration or pneumonia One or more of the following dose reduction techniques were used: automated exposure control, adjustment of the mA and/or kV according to patient size, use of iterative reconstructive technique. THIS DOCUMENT HAS BEEN ELECTRONICALLY SIGNED ASSESSMENT/PLAN:
== END 2018-12-09 09:50 | disposition left against medical advice (07) ==
LOC: JER 01:55 → JERBED 07:44
PROVIDERS: ADMIT Internal Medicine; ATTEND Internal Medicine
PROC: 3E03329 Introduction of Other Anti-infective into Peripheral Vein, Percutaneous Approach (ICD-10-PCS; principal; 2018-12-09)
PROC: 3E033VG Introduction of Insulin into Peripheral Vein, Percutaneous Approach (ICD-10-PCS; 2018-12-09)
PROC: 3E013VG Introduction of Insulin into Subcutaneous Tissue, Percutaneous Approach (ICD-10-PCS; 2018-12-09)
PROC: 3E0337Z Introduction of Electrolytic and Water Balance Substance into Peripheral Vein, Percutaneous Approach (ICD-10-PCS; 2018-12-09)
DX: E11.65 Type 2 diabetes mellitus with hyperglycemia (principal); L03.316 Cellulitis of umbilicus; J18.9 Pneumonia, unspecified organism; F17.210 Nicotine dependence, cigarettes, uncomplicated
CPT/HCPCS: 36415; 74177-TC; 80053; 81003; 82009; 82962; 85025; 87086; 96365; 96368; 96372; 96375; 99282-25; G0378

== ENCOUNTER 2018-12-10 19:28 | Observation (INO) | payer OTHER ==
[2018-12-10] MEDS ORDERED: METOCLOPRAMIDE HCL INJECTION 10 MG/2 ML VIAL IVPUSH ONE (19:32)
[2018-12-10] MEDS ORDERED: SODIUM CHLORIDE 1,000 ML IV STA ×2 (19:32→23:40)
--- NOTE | 2018-12-10 19:32 | PDOC ---
Rapid Medical Evaluation Time Seen by Provider: 12/10/18 19:30 Medical Evaluation: Allergies Allergy/AdvReac Type Severity Reaction Status Date / Time peanut Allergy Intermediate Swelling Verified 10/24/18 01:52 12/10/18 19:31 I have performed a brief in-person evaluation of this patient. The patient presents with a chief complaint of: periumbilical pain x1 week Pertinent physical exam findings: LUQ tenderness. I have ordered the following: labs, urine The patient will proceed to the ED for further evaluation. Discharge Disposition - Diagnosis LUQ pain - Referrals - Patient Instructions - Post Discharge Activity
[2018-12-10 19:33] VITALS: BP 128/83; PULSE 110; TEMP 98; BMI 28.3
[2018-12-10 20:24] LABS: BASO % 0.4 % (0-2.0); EOS % 0.6 % (0-4.5); HEMATOCRIT 46.5 % (35.4-49); HEMOGLOBIN 16.5 GM/dL (11.7-16.9); LYMPH % 20.5 % (8-40); MCH 32.6 pg (25.7-33.7); MCHC 35.5 g/dl (32.0-35.9); MEAN CELL VOLUME 91.7 fl (80-96); MEAN PLT VOLUME 11.4 fl (7.5-11.1); MONO % 5.9 % (3.8-10.2); NEUT % 72.6 % (42.8-82.8); PLATELET COUNT 204 K/MM3 (134-434); RBC 5.07 M/mm3 (4.00-5.60); RDW 11.6 % (11.9-15.9); WHITE BLOOD COUNT 8.7 K/mm3 (4.0-10.0)
[2018-12-10 20:27] LABS: VENOUS PC02 33.7 mmHg (41-51); VENOUS PH 7.43 (7.31-7.41)
[2018-12-10 20:35] LABS: ACETONE SERUM NEGATIVE (NEGATIVE)
[2018-12-10 20:54] LABS: URINE APPEARANCE CLEAR; URINE COLOR YELLOW
[2018-12-10 20:56] LABS: PH,URINE 5.5 (5.0-8.0); URINE BILIRUBIN NEGATIVE (NEGATIVE); URINE GLUCOSE (UA) 3+ (NEGATIVE); URINE KETONE 1+ (NEGATIVE)
[2018-12-10 20:57] LABS: ALBUMIN 4.3 g/dl (3.4-5.0); ALK PHOS 181 U/L (45-117); ANION GAP 9 MMOL/L (8-16); BILIRUBIN,TOTAL 0.6 mg/dL (0.2-1); BLOOD UREA NITROGEN 11 mg/dL (7-18); CHLORIDE 99 mmol/L (98-107); CO2 25 mmol/L (21-32); CREATININE 0.9 mg/dL (0.55-1.3); LIPASE 1448 U/L (73-393); POTASSIUM 3.5 mmol/L (3.5-5.1); SGOT/AST 7 U/L (15-37); SGPT/ALT 17 U/L (13-61); SODIUM 133 mmol/L (136-145)
[2018-12-10 20:57] LABS: URINE LEUK ESTERASE NEGATIVE (NEGATIVE); URINE NITRITE NEGATIVE (NEGATIVE); URINE PROTEIN TRACE (NEGATIVE); URINE UROBILINOGEN 0.2 mg/dL (0.2-1.0)
[2018-12-10 21:27] LABS: GLUCOSE,RANDOM 374 mg/dL (74-106)
[2018-12-10] MEDS ORDERED: AZITHROMYCIN IVPB 500 MG in DEXTROSE 5%-WATER - 250 ML IVPB ONE (21:35)
[2018-12-10] MEDS ORDERED: METOCLOPRAMIDE HCL INJECTION 10 MG/2 ML VIAL ONE (21:39)
[2018-12-10] MEDS ORDERED: AZITHROMYCIN IVPB 500 MG/250 ML BAG IVPB ONE (21:40)
--- NOTE | 2018-12-10 22:52 | PDOC ---
History of Present Illness - General Chief Complaint: Pain Stated Complaint: ABD PAIN Time Seen by Provider: 12/10/18 19:30 History Source: Patient Exam Limitations: No Limitations Past History - Past Medical History Allergies/Adverse Reactions: Allergies Allergy/AdvReac Type Severity Reaction Status Date / Time peanut Allergy Intermediate Swelling Verified 12/10/18 19:33 Home Medications: Ambulatory Orders Metformin HCl [Glucophage] 1,000 mg PO BID 12/09/18 Anemia: No Asthma: No Cancer: No Cardiac Disorders: No CVA: No COPD: No CHF: No Dementia: No Diabetes: Yes GI Disorders: No Disorders: No HTN: No Hypercholesterolemia: No Liver Disease: No Seizures: No Thyroid Disease: No - Immunization History Immunization Up to Date: Yes - Suicide/Smoking/Psychosocial Hx Smoking Status: Yes Smoking History: Never smoked Have you smoked in the past 12 months: Yes Number of Cigarettes Smoked Daily: 6 Hx Alcohol Use: No Drug/Substance Use Hx: Yes Substance Use Type: None Hx Substance Use Treatment: No *Physical Exam - Vital Signs Last Vital Signs Temp Pulse Resp BP Pulse Ox 98.0 F 110 H 18 128/83 99 12/10/18 19:31 12/10/18 19:31 12/10/18 19:31 12/10/18 19:31 12/10/18 19:31 - Physical Exam Respiratory/Chest: positive: Wheezing (minimal inspiratory wheezing). negative : Respiratory Distress, Labored Respiration, Paradoxal Breathing, Rhonchi, Stridor Cardiovascular: positive: Regular Rhythm, Regular Rate, S1, S2. negative: Murmur Gastrointestinal/Abdominal: positive: Tender (along umbilical site; ?abscess noted in deep in center of umbilicus), Soft. negative: Distended, Guarding, Rebound, Hernia, Mass Musculoskeletal: negative: CVA Tenderness Integumentary: positive: Normal Color Neurologic: positive: Alert, Normal Mood/Affect ED Treatment Course - LABORATORY CBC & Chemistry Diagram: 12/10/18 19:57 12/10/18 19:57 - ADDITIONAL ORDERS Additional order review: Laboratory Results 12/10/18 12/10/18 12/10/18 19:57 19:57 19:56 VBG pH 7.43 H POC VBG pCO2 33.7 L POC VBG pO2 123 H VBG HCO3 22.4 L VBG O2 Sat (Mary) 99.0 H VBG Base Excess -0.5 Sodium 133 L Potassium 3.5 Chloride 99 Carbon Dioxide 25 Anion Gap 9 BUN 11 Creatinine 0.9 Creat Clearance w eGFR 102.82 Random Glucose 374 H* Lactic Acid 1.7 Calcium 9.0 Total Bilirubin 0.6 AST 7 L ALT 17 Alkaline Phosphatase 181 H Total Protein 8.0 Albumin 4.3 Lipase 1448 H Urine Color Urine Appearance Urine pH Ur Specific [place] Urine Protein Urine Glucose (UA) Urine Ketones Urine Blood Urine Nitrite Urine Bilirubin Urine Urobilinogen Ur Leukocyte Esterase Acetone, Qual Negative 12/10/18 19:56 VBG pH POC VBG pCO2 POC VBG pO2 VBG HCO3 VBG O2 Sat (Mary) VBG Base Excess Sodium Potassium Chloride Carbon Dioxide Anion Gap BUN Creatinine Creat Clearance w eGFR Random Glucose Lactic Acid Calcium Total Bilirubin AST ALT Alkaline Phosphatase Total Protein Albumin Lipase Urine Color Yellow Urine Appearance Clear Urine pH 5.5 Ur Specific [place] 1.053 H Urine Protein Trace Urine Glucose (UA) 3+ H Urine Ketones 1+ H Urine Blood Negative Urine Nitrite Negative Urine Bilirubin Negative Urine Urobilinogen 0.2 Ur Leukocyte Esterase Negative Acetone, Qual 12/10/18 19:57 RBC 5.07 MCV 91.7 MCHC 35.5 RDW 11.6 L MPV 11.4 H Neutrophils % 72.6 Lymphocytes % 20.5 D Monocytes % 5.9 Eosinophils % 0.6 Basophils % 0.4 - Medications Given in the ED: ED Medications Discontinued Medications Generic Name Dose Route Start Last Admin Trade Name Freq PRN Reason Stop Dose Admin Sodium Chloride 1,000 mls @ 1,000 mls/hr 12/10/18 19:32 12/10/18 22:02 Normal Saline - IV 12/10/18 20:31 1,000 mls/hr ASDIR STA Administration Azithromycin 500 mg/ Dextrose 250 mls @ 250 mls/hr 12/10/18 21:35 12/10/18 22 :02 IVPB 12/10/18 22:34 250 mls/hr ONCE ONE Administration Metoclopramide HCl 10 mg 12/10/18 19:32 12/10/18 22:02 Reglan Injection - IVPUSH 12/10/18 19:33 10 mg ONCE ONE Administration Medical Decision Making - Medical Decision Making 23 y/o M with hx of DM (not fully compliant with meds) presents with periumbilical abdominal pain x 6-7 days along with nausea and watery diarrhea x 4 days. Patient was seen yesterday and was to be admitted for PNA but signed out AMA. Returns as states he would now like to stay. Denies fever, URI sxs, sob , cp, vomiting, urinary complaints. Denies prior abdominal surgeries. Denies hx of alcohol abuse; only mentions smoking marijuana. Laboratory Tests 12/10/18 19:57 Anion Gap 9 Random Glucose 374 H* Lipase 1448 H Patient noted with elevated glucose, no gap (also elevated yesterday) Also noted with elevated lipase - possible pancreatitis? no LUQ pain on exam; no hx of alcohol use or gallstones Patient had CT A/P done yesterday raising concern for bilobar PNA (patient received Ceftriaxone and Azithromycin yesterday), also showed 1 cm subcutaneous abscess deep to the umbilicus - d/w attending, recommends outpatient f/u with surgery regarding this Given IVF, Azithromycin To admit patient 12/10/18 22:47 Patient's abscess popped while he was using restroom Will also cover with Bactrim for abscess Patient also given IV insulin as sugar still elevated Patient admitted as observation 12/10/18 23:30 *DC/Admit/Observation/Transfer Diagnosis at time of Disposition: Abscess, umbilical, Hyperglycemia Pneumonia Qualifiers: Pneumonia type: due to unspecified organism Laterality: right Lung location: unspecified part of lung Qualified Code(s): J18.9 - Pneumonia, unspecified organism - Discharge Dispostion Condition at time of disposition: Stable Decision to Admit order: Yes - Referrals - Patient Instructions - Post Discharge Activity
[2018-12-10] MEDS ORDERED: SULFAMETHOXAZOLE/TRIMETHOPRIM 800MG/160MG D.S. TABLET PO ONE (23:07)
[2018-12-10] MEDS ORDERED: INSULIN REGULAR HUMAN 100 UNITS/ML *VIAL IVPUSH ONE (23:07)
--- NOTE | 2018-12-10 23:35 | HP ---
CHIEF COMPLAINT: Abdominal pain PCP: None HISTORY OF PRESENT ILLNESS: Pt is a 23 y/o gentleman with a significant past medical history of IDDM (Non- compliant) who presented to [facility] c/o epigastric pain for approximately 1 week duration. Pt endorses that pain began abruptly and is described as sharp, constant, and unremitting. Pain is assuaged when he is lying in a supine position. Pt endorses he took his mother's Gabapentin which provided slight relief of his symptoms. He was recently seen in our ED yesterday and was to be admitted for Pneumonia however signed out AMA. CTAP at that time revealed infiltrates in his R lung. Presently, pt denies chest pain, shortness of breath , fevers/chills, vomiting. Denies alcohol or previous history of gallstones. Endorses nausea and diarrhea. Also endorses polyuria particularly at night. States he does not regularly check his blood glucose but when he does, he usually ranges between 300-400. Social Hx- Smokes Marijuana every other day. Denies Tobacco use Surg Hx- Denies FH- Father DM ER course was notable for: (1) Lipase >1400 (2) Glucose > 370 Allergies peanut Allergy (Intermediate, Verified 12/10/18 19:33) Swelling HOME MEDICATIONS: Home Medications Medication Instructions Recorded Metformin HCl [Glucophage] 1,000 mg PO BID 12/09/18 REVIEW OF SYSTEMS CONSTITUTIONAL: Absent: fever, chills, diaphoresis, generalized weakness, malaise, loss of appetite, weight change HEENT: Absent: rhinorrhea, nasal congestion, throat pain, throat swelling, difficulty swallowing, mouth swelling, ear pain, eye pain, visual changes CARDIOVASCULAR: Absent: chest pain, syncope, palpitations, irregular heart rate, lightheadedness , peripheral edema RESPIRATORY: Absent: cough, shortness of breath, dyspnea with exertion, orthopnea, wheezing, stridor, hemoptysis GASTROINTESTINAL: PRESENT: abdominal pain, , nausea, diarrhea, GENITOURINARY: PRESENT: frequency MUSCULOSKELETAL: Absent: myalgia, arthralgia, joint swelling, back pain, neck pain SKIN: Absent: rash, itching, pallor HEMATOLOGIC/IMMUNOLOGIC: Absent: easy bleeding, easy bruising, lymphadenopathy, frequent infections ENDOCRINE: Absent: unexplained weight gain, unexplained weight loss, heat intolerance, cold intolerance NEUROLOGIC: Absent: headache, focal weakness or paresthesias, dizziness, unsteady gait, seizure, mental status changes, bladder or bowel incontinence PSYCHIATRIC: Absent: anxiety, depression, suicidal or homicidal ideation, hallucinations. PHYSICAL EXAMINATION Vital Signs - 24 hr 12/10/18 19:31 Temperature 98.0 F Pulse Rate 110 H Respiratory 18 Rate Blood Pressure 128/83 O2 Sat by Pulse 99 Oximetry (%) GENERAL: AAOx3 HEAD: Normal with no signs of trauma. EYES: EOMI Sclera Clear EARS, NOSE, THROAT: MMM NECK: Normal range of motion, supple without lymphadenopathy, JVD, or masses. LUNGS: Wheezing b/l diffuse. HEART: RRR Nl s1s2 ABDOMEN: Serosanguinous discharge from umbilicus. Not tender to palpation. No guarding or rigidity MUSCULOSKELETAL: FROM LOWER EXTREMITIES: No ulcers or open wounds on soles or plantar aspects of both feet. DP 2+ b/l NEUROLOGICAL: Cranial nerves II-XII intact. Normal speech. PSYCHIATRIC: Cooperative. Good eye contact. Appropriate mood and affect. SKIN: Warm, dry, normal turgor, no rashes or lesions noted, normal capillary refill. Laboratory Results - last 24 hr 12/10/18 12/10/18 12/10/18 19:56 19:56 19:57 WBC 8.7 RBC 5.07 Hgb 16.5 Hct 46.5 MCV 91.7 MCH 32.6 MCHC 35.5 RDW 11.6 L Plt Count 204 MPV 11.4 H Absolute Neuts (auto) 6.3 Neutrophils % 72.6 Lymphocytes % 20.5 D Monocytes % 5.9 Eosinophils % 0.6 Basophils % 0.4 Nucleated RBC % 0 VBG pH 7.43 H POC VBG pCO2 33.7 L POC VBG pO2 123 H VBG HCO3 22.4 L VBG O2 Sat (Mary) 99.0 H VBG Base Excess -0.5 Sodium Potassium Chloride Carbon Dioxide Anion Gap BUN Creatinine Creat Clearance w eGFR Random Glucose Lactic Acid Calcium Total Bilirubin AST ALT Alkaline Phosphatase Total Protein Albumin Lipase Urine Color Yellow Urine Appearance Clear Urine pH 5.5 Ur Specific [place] 1.053 H Urine Protein Trace Urine Glucose (UA) 3+ H Urine Ketones 1+ H Urine Blood Negative Urine Nitrite Negative Urine Bilirubin Negative Urine Urobilinogen 0.2 Ur Leukocyte Esterase Negative Acetone, Qual 12/10/18 12/10/18 19:57 19:57 WBC RBC Hgb Hct MCV MCH MCHC RDW Plt Count MPV Absolute Neuts (auto) Neutrophils % Lymphocytes % Monocytes % Eosinophils % Basophils % Nucleated RBC % VBG pH POC VBG pCO2 POC VBG pO2 VBG HCO3 VBG O2 Sat (Mary) VBG Base Excess Sodium 133 L Potassium 3.5 Chloride 99 Carbon Dioxide 25 Anion Gap 9 BUN 11 Creatinine 0.9 Creat Clearance w eGFR 102.82 Random Glucose 374 H* Lactic Acid 1.7 Calcium 9.0 Total Bilirubin 0.6 AST 7 L ALT 17 Alkaline Phosphatase 181 H Total Protein 8.0 Albumin 4.3 Lipase 1448 H Urine Color Urine Appearance Urine pH Ur Specific [place] Urine Protein Urine Glucose (UA) Urine Ketones Urine Blood Urine Nitrite Urine Bilirubin Urine Urobilinogen Ur Leukocyte Esterase Acetone, Qual Negative ASSESSMENT/PLAN: Pt is a 23 y/o gentleman with a significant past medical history of IDDM (Non- compliant) who presented to [facility] c/o epigastric pain for approximately 1 week duration. Pt endorses that pain began abruptly and is described as sharp, constant, and unremitting #CAP CTAP--> Infiltrate right posterior basilar region. Focal opacity within Right middle lobe which may represent an infiltrate. Given Azithromycin and Ceftriaxone yesterday in ED Given Azithro today in ED. Will place on Augmentin 875 BID starting tomorrow. Repeat CXR in am Repeat CBC in am. Assess for elevated WBC #Possible Pancreatitis -lipase 1448. h/o uncontrolled DM is a risk factor. Also endorses abdominal pain. Does meet criteria for diagnosis of Pancreatitis. -CTAP did not reveal any apparent abnormalities with pancreas -Place on LR as known to have antiinflammatory effects. -Monitor for signs/symptoms of worsening abdominal pain. #Subcutaneous fluid collection deep to umbilicus - Appreciated on CTAP - Drained while examining pt in ED. -Surgery consult #IDDM -Endorses taking Lantus 40U QHS as well as metformin 1000 BID -Will hold oral hypoglycemics. Will place on ISS. Will assess need for possible addition of levemir. #FEN LR@75cc/hr Monitor Electrolytes Diabetic Diet #DVT ppx HEPSQTID Dispo: Obs Visit type - Emergency Visit Emergency Visit: Yes ED Registration Date: 12/10/18 Care time: The patient presented to the Emergency Department on the above date and was hospitalized for further evaluation of their emergent condition. - New Patient This patient is new to me today: Yes Date on this admission: 12/11/18 - Critical Care Critical Care patient: No
[2018-12-10] MEDS ORDERED: SULFAMETHOXAZOLE/TRIMETHOPRIM 800MG/160MG D.S. TABLET ONE (23:44)
[2018-12-10] MEDS ORDERED: INSULIN REGULAR HUMAN 100 UNITS/ML *VIAL ONE (23:45)
[2018-12-11] MEDS ORDERED: LACTATED RINGERS SOLUTION 1,000 ML/1,000 ML INFUS.BAG IV SCH (00:15)
--- NOTE | 2018-12-11 00:42 | PN ---
Teaching Attending Note Name of Resident: Andrés Malin ATTENDING PHYSICIAN STATEMENT I saw and evaluated the patient. I reviewed the resident's note and discussed the case with the resident. I agree with the resident's findings and plan as documented. SUBJECTIVE:Abdominal pain He is a 23 Y/O M W uncontrolled DM, no PMD, previous admissions for abscesses and uncontrolled FS. P/W 1 week of constant, worsening, periumblical pain, no trigger, aggravated with sitting up and touching the abdomen, alleviated today after the lesion opened and drained. He also states that he has had some cough with no other URI symptoms for 2 weeks with no other cardiopulmonary complaints. He was evaluated in the ED yesterday and was found to have periumblical absecess on CT. also incidental finding of the lung infiltrates were also reported. He recieved 1 dose of ceftriaxone in the ED yesterday and AMAed after that. at this time states that the abdominal pain has improved as the abscess has burst and drained spontaneously. He was also found to e hyperglycemic and was treated with insulin. He is afebrile, has had no F/C at home. He has ran out of his humolog at home and only takes lantus. FS are uncontrolled. he only gets medications that he gets from ED OBJECTIVE: afebrile, tachycardic In no distress MMM CVS:s1S2 Lungs: Good air movement, has R basilar rales Abd: bs+, Has pus + blood tinged discharge from the umblicus. NT ext: No edema CBCD WBC 8.7 K/mm3 (4.0-10.0) 12/10/18 19:57 RBC 5.07 M/mm3 (4.00-5.60) 12/10/18 19:57 Hgb 16.5 GM/dL (11.7-16.9) 12/10/18 19:57 Hct 46.5 % (35.4-49) 12/10/18 19:57 MCV 91.7 fl (80-96) 12/10/18 19:57 MCHC 35.5 g/dl (32.0-35.9) 12/10/18 19:57 RDW 11.6 % (11.9-15.9) L 12/10/18 19:57 Plt Count 204 K/MM3 (134-434) 12/10/18 19:57 MPV 11.4 fl (7.5-11.1) H 12/10/18 19:57 CMP Sodium 133 mmol/L (136-145) L 12/10/18 19:57 Potassium 3.5 mmol/L (3.5-5.1) 12/10/18 19:57 Chloride 99 mmol/L (98-107) 12/10/18 19:57 Carbon Dioxide 25 mmol/L (21-32) 12/10/18 19:57 Anion Gap 9 MMOL/L (8-16) 12/10/18 19:57 BUN 11 mg/dL (7-18) 12/10/18 19:57 Creatinine 0.9 mg/dL (0.55-1.3) 12/10/18 19:57 Creat Clearance w eGFR 102.82 (>60) 12/10/18 19:57 Random Glucose 374 mg/dL (74-106) H* 12/10/18 19:57 Calcium 9.0 mg/dL (8.5-10.1) 12/10/18 19:57 Total Bilirubin 0.6 mg/dL (0.2-1) 12/10/18 19:57 AST 7 U/L (15-37) L 12/10/18 19:57 ALT 17 U/L (13-61) 12/10/18 19:57 Alkaline Phosphatase 181 U/L (45-117) H 12/10/18 19:57 Total Protein 8.0 g/dl (6.4-8.2) 12/10/18 19:57 Albumin 4.3 g/dl (3.4-5.0) 12/10/18 19:57 ASSESSMENT AND PLAN: abdominal wall pain in the setting of abscess: now resolved, will c/w Po antibiotics with MRSA coverage can get US abdominal wall tomorrow for confirmation of the complete drainage of the abscess uncontrolled DM: long conversation about the importance of adherence to medication and clinic visits FS ac hs will restart home medication Nutrition consult abnormal lung imaging: will get CXR APLAT. does not sound like bacterial PNA as he has no leukocytosis and no hypoxia, but will treat for community acquired PNA he was educted that he should get naother CXR in 1 month for confirmation of the clearing of the abnormal finding. DC home tomorrow FC rest of the management per HS note
--- NOTE | 2018-12-11 04:07 | DS ---
Physical Exam: SUBJECTIVE: Patient seen and examined. Decided to leave AMA. OBJECTIVE: Vital Signs Period Temp Pulse Resp BP Sys/Lennon Pulse Ox Last 24 Hr 98.0 F 110 18 128/83 99 PHYSICAL EXAM GENERAL: AAOx3, in no acute distress HEAD: Normal with no signs of trauma. EYES: EOMI, PERRLA NECK: Normal range of motion, supple without lymphadenopathy, JVD, or masses. LUNGS: diffuse wheezing b/l HEART: S1, S2 RRR. no r/m/g ABDOMEN: Serosanguineous discharge from umbilicus. Not tender to palpation. No guarding or rigidity LOWER EXTREMITIES: 2+ dp pulses. without tenderness to palpation. NEUROLOGICAL: Cranial nerves II-XII intact. Normal speech. PSYCHIATRIC: Cooperative. Good eye contact. SKIN: Warm, dry, normal turgor LABS 12/10/18 12/10/18 12/10/18 19:56 19:57 19:57 WBC 8.7 Hgb 16.5 Hct 46.5 Plt Count 204 Sodium 133 L Potassium 3.5 Chloride 99 Carbon Dioxide 25 BUN 11 Creatinine 0.9 Random Glucose 374 H* Alkaline Phosphatase 181 H Lipase 1448 H Urine Glucose (UA) 3+ H Urine Ketones 1+ H HOSPITAL COURSE: Date of Admission:12/10/18 Date of Discharge: 12/11/18 23 y/o M with a significant PMH of IDDM (non-compliant) who c/o periumbilical pain for approximately 1 week duration. Pt endorses that pain began abruptly and was sharp, constant, and unremitting. Pain is alleviated when he lays flat and supine. States that he also took his mother's Gabapentin which provided slight relief of his symptoms. He was recently seen in our ED yesterday and was to be admitted for Pneumonia however signed out AMA. Denies chest pain, SOB, fevers/chills, vomiting. Also denies alcohol or previous history of gallstones. States he does not regularly check his blood glucose but when he does, he usually ranges between 300-400. Pt left AMA before admitted to floor for w/u concerning umbilical abscess (was to have an abdominal sono, and sx consult), as well as abx for possible PNA ( augmentin). As per nurse, he "ripped his IV out" and left. Minutes to complete discharge: 40 Discharge Summary Reason For Visit: PNEUMONIA Current Active Problems Abscess, umbilical (Acute) Hyperglycemia (Acute) Pneumonia (Acute) Condition: Stable - Instructions Disposition: AGAINST MEDICAL ADVICE - Home Medications Comprehensive Discharge Medication List: Ambulatory Orders Metformin HCl [Glucophage] 1,000 mg PO BID 12/09/18 This patient is new to me today: Yes Date on this admission: 12/11/18 Emergency Visit: Yes ED Registration Date: 12/10/18 Care time: The patient presented to the Emergency Department on the above date and was hospitalized for further evaluation of their emergent condition. Critical Care patient: No - Discharge Referral Referred to [facility] Med P.C.: No
[2018-12-11] MEDS ORDERED: HEPARIN NA (PORCINE) 5,000 UNITS/ML 1ML VIAL SQ SCH (06:00)
[2018-12-11] MEDS ORDERED: INSULIN SLIDING SCALE (NOVOLOG) 1 VIAL SQ SCH (07:00)
[2018-12-11] MEDS ORDERED: AMOX TR/POT CLAV 875MG/125MG TABLETS (FP) PO SCH (08:00)
[2018-12-11] MEDS ORDERED: CEFTRIAXONE 1 GM in DEXTROSE 5%-WATER - 100 ML IVPB SCH (10:00)
[2018-12-11] MEDS ORDERED: AZITHROMYCIN IVPB 250 MG in DEXTROSE 5%-WATER - 250 ML IVPB SCH (21:00)
--- NOTE | 2018-12-12 12:28 | EKG ---
Test Reason : Blood Pressure : / mmHG Vent. Rate : 101 BPM Atrial Rate : 101 BPM P-R Int : 134 ms QRS Dur : 082 ms QT Int : 342 ms P-R-T Axes : 073 053 013 degrees QTc Int : 443 ms SINUS TACHYCARDIA NONSPECIFIC T WAVE ABNORMALITY ABNORMAL ECG WHEN COMPARED WITH ECG OF 05-AUG-2018 02:56, INVERTED T WAVES HAVE REPLACED NONSPECIFIC T WAVE ABNORMALITY IN INFERIOR LEADS NONSPECIFIC T WAVE ABNORMALITY NOW EVIDENT IN LATERAL LEADS Confirmed by ELVIS BOYD MD ([id number]) on 12/12/2018 12:28:21 PM Referred By: Confirmed By:ELVIS BOYD MD
== END 2018-12-11 02:30 | disposition left against medical advice (07) ==
LOC: JER 19:28 → JERBED 23:32
PROVIDERS: ADMIT Internal Medicine; ATTEND Internal Medicine
PROC: 3E03329 Introduction of Other Anti-infective into Peripheral Vein, Percutaneous Approach (ICD-10-PCS; principal; 2018-12-10)
PROC: 3E033VG Introduction of Insulin into Peripheral Vein, Percutaneous Approach (ICD-10-PCS; 2018-12-10)
PROC: 3E033GC Introduction of Other Therapeutic Substance into Peripheral Vein, Percutaneous Approach (ICD-10-PCS; 2018-12-10)
PROC: 3E0337Z Introduction of Electrolytic and Water Balance Substance into Peripheral Vein, Percutaneous Approach (ICD-10-PCS; 2018-12-10)
DX: J18.9 Pneumonia, unspecified organism (principal); L02.216 Cutaneous abscess of umbilicus; E11.65 Type 2 diabetes mellitus with hyperglycemia; R74.8 Abnormal levels of other serum enzymes; Z79.84 Long term (current) use of oral hypoglycemic drugs; Z91.14 Patient's other noncompliance with medication regimen; Z91.010 Allergy to peanuts; Z79.4 Long term (current) use of insulin
CPT/HCPCS: 36415; 80053; 81003; 82009; 82803; 83605; 83690; 85025; 87040; 93005; 93010; 96361; 96365; 96375; 99282-25; G0378; J7030

== ENCOUNTER 2018-12-18 15:09 | Inpatient (IN) | payer OTHER ==
--- NOTE | 2018-12-18 15:16 | PDOC ---
Rapid Medical Evaluation Chief Complaint: Blood Sugar Problem Time Seen by Provider: 12/18/18 15:15 Medical Evaluation: Allergies Allergy/AdvReac Type Severity Reaction Status Date / Time peanut Allergy Intermediate Swelling Verified 12/10/18 19:33 12/18/18 15:15 I did a brief in person evaluation on this patient. CC: Pt has hx of DM, pt's accucheck was greater than 500 HPI: See above PE: Skin: Clear Lungs: Clear Heart:RRR MS: Moves all extremities without difficulty Neuro: alert Psych: appropriate affect. I have ordered: basic labs Pt will proceed to main ED for further evaluation. Discharge Disposition - Diagnosis Hyperglycemia - Referrals - Patient Instructions - Post Discharge Activity
[2018-12-18 16:02] LABS: BASO % 0.5 % (0-2.0); EOS % 0.8 % (0-4.5); HEMATOCRIT 42.8 % (35.4-49); HEMOGLOBIN 14.9 GM/dL (11.7-16.9); LYMPH % 19.5 % (8-40); MCH 32.6 pg (25.7-33.7); MCHC 34.8 g/dl (32.0-35.9); MEAN CELL VOLUME 93.7 fl (80-96); MEAN PLT VOLUME 11.2 fl (7.5-11.1); MONO % 5.3 % (3.8-10.2); NEUT % 73.9 % (42.8-82.8); PLATELET COUNT 231 K/MM3 (134-434); RBC 4.57 M/mm3 (4.00-5.60); RDW 11.8 % (11.9-15.9); WHITE BLOOD COUNT 6.5 K/mm3 (4.0-10.0)
--- NOTE | 2018-12-18 16:07 | PDOC ---
History of Present Illness - General Chief Complaint: Blood Sugar Problem Stated Complaint: SENT BY PCP Time Seen by Provider: 12/18/18 15:15 History Source: Patient Exam Limitations: No Limitations Past History - Travel Traveled outside of the country in the last 30 days: No Close contact w/someone who was outside of country & ill: No - Past Medical History Allergies/Adverse Reactions: Allergies Allergy/AdvReac Type Severity Reaction Status Date / Time peanut Allergy Intermediate Swelling Verified 12/10/18 19:33 Home Medications: Ambulatory Orders Metformin HCl [Glucophage] 1,000 mg PO BID 12/09/18 Insulin (Levemir) [Levemir Vial] 35 unit SQ HS 12/19/18 Anemia: No Asthma: No Cancer: No Cardiac Disorders: No CVA: No COPD: No CHF: No Dementia: No Diabetes: Yes GI Disorders: No Disorders: No HTN: No Hypercholesterolemia: No Liver Disease: No Seizures: No Thyroid Disease: No - Immunization History Immunization Up to Date: Yes - Suicide/Smoking/Psychosocial Hx Smoking Status: Yes Smoking History: Unknown if ever smoked Have you smoked in the past 12 months: Yes Number of Cigarettes Smoked Daily: 6 Information on smoking cessation initiated: No Hx Alcohol Use: No Drug/Substance Use Hx: Yes Substance Use Type: None Hx Substance Use Treatment: No Review of Systems - Review of Systems Able to Perform ROS?: Yes Comments:: 12/18/18 18:55 CONSTITUTIONAL: Present: malaise Absent: fever, chills, diaphoresis, generalized weakness, loss of appetite HEENT: Absent: rhinorrhea, nasal congestion, throat pain, throat swelling, difficulty swallowing, mouth swelling, ear pain, eye pain, visual Changes CARDIOVASCULAR: Absent: chest pain, loss of consciousness, palpitations, irregular heart rate, peripheral edema RESPIRATORY: Absent: cough, shortness of breath, dyspnea with exertion, orthopnea, wheezing, stridor, hemoptysis GASTROINTESTINAL: Absent: abdominal pain, abdominal distension, nausea, vomiting, diarrhea, constipation, melena, hematochezia GENITOURINARY: Absent: dysuria, frequency, urgency, hesitancy, hematuria, flank pain, genital pain MUSCULOSKELETAL: Absent: myalgia, arthralgia, joint swelling SKIN: Absent: rash, itching, pallor HEMATOLOGIC/IMMUNOLOGIC: Absent: easy bleeding, easy bruising, lymphadenopathy, frequent infections ENDOCRINE: Absent: unexplained weight gain, unexplained weight loss, heat intolerance, cold intolerance NEUROLOGIC: Absent: headache, focal weakness or paresthesias, dizziness, unsteady gait, seizure, mental status changes, bladder or bowel incontinence PSYCHIATRIC: Absent: anxiety, depression, suicidal or homicidal ideation, hallucinations. Is the patient limited Russian proficient: No *Physical Exam - Vital Signs Last Vital Signs Temp Pulse Resp BP Pulse Ox 98.3 F 129 H 18 132/84 98 12/18/18 15:13 12/18/18 15:13 12/18/18 15:13 12/18/18 15:13 12/18/18 15:13 - Physical Exam Comments: 12/18/18 18:56 GENERAL: Well developed, well nourished. Awake and alert. No acute distress. HEENT: Normocephalic, atraumatic. PERRLA, EOMI. No conjunctival pallor. Sclera are non- icteric. Moist mucous membranes. Oropharynx is clear. NECK: Supple. Full ROM. No JVD. Carotid pulses 2+ and symmetric, without bruits. No thyromegaly. No lymphadenopathy. CARDIOVASCULAR: Regular rate and rhythm. No murmurs, rubs, or gallops. Distal pulses are 2+ and symmetric. PULMONARY: No evidence of respiratory distress. Lungs clear to auscultation bilaterally. No wheezing, rales or rhonchi. ABDOMINAL: Soft. Non-tender. Non-distended. No rebound or guarding. No organomegaly. Normoactive bowel sounds. MUSCULOSKELETAL Normal range of motion at all joints. No bony deformities or tenderness. No CVA tenderness. EXTREMITIES: No cyanosis. No clubbing. No edema. No calf tenderness. SKIN: Warm and dry. Normal capillary refill. No rashes. No jaundice. NEUROLOGICAL: Alert, awake, appropriate. Cranial nerves 2-12 intact. No deficits to light touch and temperature in face, upper extremities and lower extremities. No motor deficits in the in face, upper extremities and lower extremities. Normoreflexic in the upper and lower extremities. Normal speech. Toes are down- going bilaterally. Gait is normal without ataxia. PSYCHIATRIC: Cooperative. Good eye contact. Appropriate mood and affect. ED Treatment Course - LABORATORY CBC & Chemistry Diagram: 12/19/18 06:50 12/19/18 06:50 Medical Decision Making - Medical Decision Making 12/18/18 19:23 Patient is a 23-year-old male with past medical history of insulin-dependent diabetes, who presents to the ER today from the outpatient resident clinic for possible admission. He was noted to have hyperglycemia at the office over 500. He states that he has generalized aches but otherwise feels fine. He notes that he is also here for an abdominal abscess around the umbilicus area. Denies fevers, chills, nausea, vomiting, diarrhea, polydipsia, polyuria, difficulty breathing, shortness of breath. Note sent by Dr. Garcia from the office visit. There is concern that the patient' s last pneumonia in the setting of his hyperglycemia as patient and made from the hospital from his last admission for his pneumonia. There is also concern for the potential abscess on the abdomen. A/P: Hyperglycemia, rule out pneumonia, abscess? On exam no umbilical abscess appreciated. No drainage noted. Lungs are clear to auscultation bilaterally no crackles rales or wheezing noted. Basic labs obtained show no leukocytosis, no anion gap, negative acetones Chest x-ray reordered, abdominal ultrasound to evaluate the abscess? If both are negative patient can go home Sign out given to SEBASTIÁN nicole. *DC/Admit/Observation/Transfer Diagnosis at time of Disposition: Hyperglycemia, Abscess, umbilical - Discharge Dispostion Condition at time of disposition: Stable - Referrals - Patient Instructions - Post Discharge Activity
[2018-12-18 16:15] LABS: VENOUS PC02 49.2 mmHg (41-51); VENOUS PH 7.36 (7.31-7.41); VENOUS PO2 53.6 mmHg (30-40)
[2018-12-18 16:47] LABS: ALK PHOS 152 U/L (45-117); ANION GAP 10 MMOL/L (8-16); BILIRUBIN,TOTAL 0.6 mg/dL (0.2-1); BLOOD UREA NITROGEN 12 mg/dL (7-18); CALCIUM 9.8 mg/dL (8.5-10.1); CHLORIDE 95 mmol/L (98-107); CO2 27 mmol/L (21-32); CREATININE 1.1 mg/dL (0.55-1.3); SGOT/AST 11 U/L (15-37); SGPT/ALT 20 U/L (13-61); SODIUM 132 mmol/L (136-145); TOT PROT 7.9 g/dl (6.4-8.2)
[2018-12-18 16:50] LABS: GLUCOSE,RANDOM 428 mg/dL (74-106)
[2018-12-18] MEDS ORDERED: INSULIN REGULAR HUMAN 100 UNITS/ML *VIAL IVPUSH ONE ×2 (16:51→23:12)
[2018-12-18] MEDS ORDERED: INSULIN (NOVOLOG) ASPART 100 UNITS/ML 10ML VIAL ONE (16:58)
[2018-12-18 17:26] LABS: ACETONE SERUM NEGATIVE (NEGATIVE)
[2018-12-18] MEDS ORDERED: SODIUM CHLORIDE 1,000 ML IV STA (19:13)
--- NOTE | 2018-12-18 20:17 | PDOC ---
*Physical Exam - Vital Signs Last Vital Signs Temp Pulse Resp BP Pulse Ox 98.3 F 129 H 18 132/84 98 12/18/18 15:13 12/18/18 15:13 12/18/18 15:13 12/18/18 15:13 12/18/18 15:13 - Physical Exam General Appearance: Yes: Appropriately Dressed Respiratory/Chest: positive: Lungs Clear, Normal Breath Sounds Gastrointestinal/Abdominal: positive: Normal Bowel Sounds, Tender (at the umbilicus with serosanguinous drainage), Soft Integumentary: positive: Normal Color, Dry, Warm Neurologic: positive: Fully Oriented, Alert ED Treatment Course - LABORATORY CBC & Chemistry Diagram: 12/18/18 15:25 12/18/18 15:25 - ADDITIONAL ORDERS Additional order review: Laboratory Results 12/18/18 12/18/18 15:25 15:25 VBG pH 7.36 POC VBG pCO2 49.2 POC VBG pO2 53.6 H VBG HCO3 26.8 VBG O2 Sat (Mary) 86.6 H VBG Base Excess 0.9 Sodium 132 L Potassium 4.0 Chloride 95 L Carbon Dioxide 27 Anion Gap 10 BUN 12 Creatinine 1.1 Creat Clearance w eGFR 81.56 Random Glucose 428 H* Calcium 9.8 Total Bilirubin 0.6 AST 11 L ALT 20 Alkaline Phosphatase 152 H Total Protein 7.9 Albumin 4.0 Acetone, Qual Negative 12/18/18 15:25 RBC 4.57 MCV 93.7 MCHC 34.8 RDW 11.8 L MPV 11.2 H Neutrophils % 73.9 Lymphocytes % 19.5 Monocytes % 5.3 Eosinophils % 0.8 Basophils % 0.5 - Medications Given in the ED: ED Medications Discontinued Medications Generic Name Dose Route Start Last Admin Trade Name Freq PRN Reason Stop Dose Admin Insulin Human Regular 6 units 12/18/18 16:51 12/18/18 17:10 Novolin R Vial *For Ivpush Or Iv Drip Only* IVPUSH 12/18/18 16:52 6 units ONCE ONE Administration Medical Decision Making - Medical Decision Making 12/18/18 22:10 patient signed out AMA last visit. has umbilical abscess. need surgical consult. persistent hyperglycemia without ketosis. will admit. patient to be admitted under hospitalist service. *DC/Admit/Observation/Transfer Diagnosis at time of Disposition: Hyperglycemia, Abscess, umbilical - Discharge Dispostion Disposition: HOME Decision to Admit order: Yes - Referrals - Patient Instructions Additional Instructions: Drink plenty of fluids. Take insulin as prescribed by your doctor. Check your sugar daily. Return to the emergency room for any worsening symptoms, vomiting, dehydration. - Post Discharge Activity Forms/Work/School Notes: Back to Work
[2018-12-18] MEDS ORDERED: PIPERACILLIN/TAZOBACTAM 4.5 GM VIAL IVPB ONE (22:07)
[2018-12-18] MEDS ORDERED: VANCOMYCIN 1 GM in D5W (PRE-DOCKED) 1,000 MG/250 ML IVPB ONE (22:08)
[2018-12-18] MEDS ORDERED: PIPERACILLIN/TAZOB 4.5 GM 4.5 GM/100 ML BAG IVPB ONE (22:29)
[2018-12-18 22:45] LABS: COCAINE, UR NEGATIVE ng/ml (CUTOFF=300); METHADONE, UR NEGATIVE ng/ml (CUTOFF=300); OPIATES, URI NEGATIVE ng/ml (CUTOFF=300); PHENCYCLIDINE,URINE NEGATIVE ng/ml (CUTOFF=25); URINE AMPHETAMINES NEGATIVE ng/ml (CUTOFF=500); URINE BARBITURATES NEGATIVE ng/ml (CUTOFF=200); URINE BENZODIAZEPINES NEGATIVE ng/ml (CUTOFF=200)
--- NOTE | 2018-12-18 22:46 | PN ---
Teaching Attending Note Name of Resident: Boris Angeles ATTENDING PHYSICIAN STATEMENT I saw and evaluated the patient. I reviewed the resident's note and discussed the case with the resident. I agree with the resident's findings and plan as documented. SUBJECTIVE: Seen and examined; please refer to resident note for further historical documentation. Briefly, this is a 23 y/o male presenting to the ER with a CC of periumbilical pain. He has had multiple AMA discharges from being treated for umbilical abscess. He was referred to primary care clinic and was noted to be hyperglycmic and was sent in to the ER. He had a R-sided resolving PNA on the ; has not been on abx, etc. No respiratory complaints today. No DKA on labs. Will place on medicine service with surgical consult. 10 sys ROS done and negative aside from HPI PMH, PSH, FH, SH reviewed Home Medications Medication Instructions Recorded Metformin HCl [Glucophage] 1,000 mg PO BID 12/09/18 OBJECTIVE: VS, labs, imaging reviewed NAD, AAO, resting comfortably in bed NC AT EOMI PERRLA RRR s1/2 no mgr Lungs CTAB, w/ sym exp NT ND +BS Periumbilical abscess noted; appears similar to prior descriptions in chart CN2-12 wnl, no fnd Normal mood, appropriate behavior CXR without acute pathology Abdominal US shows a 1.7x1.6x1.1cm subcutaneous fluid collection around the umbilicus 12/09 CT reviewed ASSESSMENT AND PLAN: Patient presents for umbilical abscess and is noted to be hyperglycemic with uncontrolled DM 1) Periumbilical Abscess -Reviewed prior imaging, treatment. -Consult sgy for drainage; clindamycin per recs. Wound care per surgical service ; appreciate expert opinion -Followup cultures; check ESR/CRP. 2) Uncontrolled DM2 with hyperglycemia -Documented as being on home metformin; noncompliant with home insulin. -given 6 units IV in the ER; followup fsg. Repeat IV insulin if >450; cover with SSI. -Start lantus 8 in the AM; SSI. Hydrate with NS @75 overnight. 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 No need for additional treatments ; CXR clear today 7) Noncompliance -Camp Assistant prior to DC Full Code
[2018-12-18] MEDS: LACTATED RINGERS SOLUTION 1,000 ML IV SCH (23:20)
[2018-12-18] MEDS ORDERED: CLINDAMYCIN 600MG PREMIX IVPB 600 MG/50 ML BAG IVPB ONE (23:22)
--- NOTE | 2018-12-18 23:24 | HP ---
CHIEF COMPLAINT: umbilical abscess, hyperglycemia PCP: HISTORY OF PRESENT ILLNESS: Patient is a 23 y/o M w/ PMHx IDDM (non-compliant), has had recent ED visits resulting in leaving AMA after w/u for PNA and umbilical abscess, visited primary care today on referral from prior visit and was found to be hyperglycemic to 500s and have a purulent umbilical abscess. Denies any other complaints. Afebrile w/ stable vitals on presentation, labs only remarkable for glucose 428. CT a/p on 12/09/18 found ring-enhancing deep umbilical fluid collection, abd US in ED today confirmed the same finding (differences in dimensions may be accounted for by differing modalities). Patient is prescribed various insulins but does not take them regularly, sugars consistently found to be 400s-500s. Received NS bolus, 6U IV insulin, Vancomycin, and Zosyn in ED. Recent Travel: PAST MEDICAL HISTORY: As per HPI PAST SURGICAL HISTORY: none Social History: Smoking: No Alcohol: Social Drugs: Yes, cannabis Family History: Allergies peanut Allergy (Intermediate, Verified 12/10/18 19:33) Swelling HOME MEDICATIONS: Home Medications Medication Instructions Recorded Metformin HCl [Glucophage] 1,000 mg PO BID 12/09/18 REVIEW OF SYSTEMS As per HPI PHYSICAL EXAMINATION Vital Signs - 24 hr 12/18/18 15:13 Temperature 98.3 F Pulse Rate 129 H Respiratory 18 Rate Blood Pressure 132/84 O2 Sat by Pulse 98 Oximetry (%) GENERAL: A&Ox3, NAD HEENT: NC/AT, PERRLA, EOMI, MMM NECK: Normal range of motion, supple without lymphadenopathy, JVD, or masses. LUNGS: CTA b/l HEART: RRR no m/r/g ABDOMEN: +bs, soft, NT, ND, non-tender deep umbilical lesion draining foul- smelling fluid MUSCULOSKELETAL: Normal range of motion at all joints. No bony deformities or tenderness. No CVA tenderness. UPPER EXTREMITIES: 2+ pulses, warm, well-perfused. No cyanosis. No clubbing. No peripheral edema. LOWER EXTREMITIES: 2+ pulses, warm, well-perfused. No calf tenderness. No peripheral edema. NEUROLOGICAL: business change manager, motor, sensory systems w/o focal deficit PSYCHIATRIC: Cooperative. Good eye contact. Appropriate mood and affect. SKIN: Warm, dry, normal turgor, no rashes or lesions noted, normal capillary refill. Laboratory Results - last 24 hr 12/18/18 12/18/18 12/18/18 15:25 15:25 15:25 WBC 6.5 RBC 4.57 Hgb 14.9 Hct 42.8 MCV 93.7 MCH 32.6 MCHC 34.8 RDW 11.8 L Plt Count 231 MPV 11.2 H Absolute Neuts (auto) 4.8 Neutrophils % 73.9 Lymphocytes % 19.5 Monocytes % 5.3 Eosinophils % 0.8 Basophils % 0.5 Nucleated RBC % 0 VBG pH 7.36 POC VBG pCO2 49.2 POC VBG pO2 53.6 H VBG HCO3 26.8 VBG O2 Sat (Mary) 86.6 H VBG Base Excess 0.9 Sodium 132 L Potassium 4.0 Chloride 95 L Carbon Dioxide 27 Anion Gap 10 BUN 12 Creatinine 1.1 Creat Clearance w eGFR 81.56 POC Glucometer Random Glucose 428 H* Calcium 9.8 Total Bilirubin 0.6 AST 11 L ALT 20 Alkaline Phosphatase 152 H Total Protein 7.9 Albumin 4.0 Opiates Screen Methadone Screen Barbiturate Screen Phencyclidine Screen Ur Amphetamines Screen MDMA (Ecstasy) Screen Benzodiazepines Screen Cocaine Screen U Marijuana (THC) Screen Acetone, Qual Negative 12/18/18 12/18/18 21:43 21:45 WBC RBC Hgb Hct MCV MCH MCHC RDW Plt Count MPV Absolute Neuts (auto) Neutrophils % Lymphocytes % Monocytes % Eosinophils % Basophils % Nucleated RBC % VBG pH POC VBG pCO2 POC VBG pO2 VBG HCO3 VBG O2 Sat (Mary) VBG Base Excess Sodium Potassium Chloride Carbon Dioxide Anion Gap BUN Creatinine Creat Clearance w eGFR POC Glucometer 579 Random Glucose Calcium Total Bilirubin AST ALT Alkaline Phosphatase Total Protein Albumin Opiates Screen Negative Methadone Screen Negative Barbiturate Screen Negative Phencyclidine Screen Negative Ur Amphetamines Screen Negative MDMA (Ecstasy) Screen Negative Benzodiazepines Screen Negative Cocaine Screen Negative U Marijuana (THC) Screen Positive A* Acetone, Qual ASSESSMENT/PLAN: 23 y/o M w/ PMHx IDDM (non-compliant), has had recent ED visits resulting in leaving AMA after w/u for PNA and umbilical abscess, p/w hyperglycemia and umbilical abscess #A -poor glycemic control -purulent umbilical lesion re-identified as abscess by abd US #P -Sx (Dr. Obrien) consulted -NPO after midnight -coags, T&S, f/u CBC -wound culture -f/u C/S -will give further push of IV insulin, starting 8U Levemir in AM, as well as BGM & SSI ACHS -LR @ 100 -f/u BMP, Mg, Phos -mechanical DVT PPx -full code -admit to med/surg Visit type - Emergency Visit Emergency Visit: Yes Care time: The patient presented to the Emergency Department on the above date and was hospitalized for further evaluation of their emergent condition. - New Patient This patient is new to me today: Yes Date on this admission: 12/18/18 - Critical Care Critical Care patient: No
[2018-12-18] MEDS: CLINDAMYCIN 600MG PREMIX IVPB 600 MG/50 ML BAG IVPB SCH (23:30)
[2018-12-19] MEDS ORDERED: INSULIN (NOVOLOG MIX 70/30) 100 UNITS/ML MDV SQ ONE ×2 (01:22→01:23)
[2018-12-19] MEDS ORDERED: CLINDAMYCIN 600MG PREMIX IVPB 600 MG/50 ML BAG IVPB ONE (02:48)
[2018-12-19] MEDS: CLINDAMYCIN 600MG PREMIX IVPB 600 MG/50 ML BAG IVPB SCH ×3 (02:51→17:23)
[2018-12-19 03:53] LABS: INR 0.84 (0.83-1.09); PROTHROMBIN TIME (PATIENT) 9.9 SEC (9.7-13.0)
[2018-12-19 03:56] LABS: ACTIVATED PTT 32.9 SECONDS (25.2-36.5)
[2018-12-19 04:29] VITALS: BMI 30.4
[2018-12-19] MEDS ORDERED: PIPERACILLIN/TAZOB 4.5 GM 4.5 GM in DEXTROSE 5%-WATER 100 ML IVPB SCH (06:00)
[2018-12-19] MEDS ORDERED: INSULIN (LEVEMIR) 100 UNITS/ML UNITS SQ SCH (07:00)
[2018-12-19 07:18] LABS: BASO % 0.7 % (0-2.0); EOS % 1.8 % (0-4.5); HEMOGLOBIN 13.7 GM/dL (11.7-16.9); LYMPH % 33.5 % (8-40); MCH 33.2 pg (25.7-33.7); MCHC 35.1 g/dl (32.0-35.9); MEAN CELL VOLUME 94.5 fl (80-96); MEAN PLT VOLUME 11.3 fl (7.5-11.1); MONO % 6.7 % (3.8-10.2); NEUT % 57.3 % (42.8-82.8); PLATELET COUNT 204 K/MM3 (134-434); RBC 4.13 M/mm3 (4.00-5.60); RDW 11.8 % (11.9-15.9); WHITE BLOOD COUNT 6.1 K/mm3 (4.0-10.0)
[2018-12-19 07:51] LABS: ANION GAP 9 MMOL/L (8-16); BLOOD UREA NITROGEN 12 mg/dL (7-18); CALCIUM 8.6 mg/dL (8.5-10.1); CHLORIDE 104 mmol/L (98-107); CO2 26 mmol/L (21-32); CREATININE 0.8 mg/dL (0.55-1.3); GLUCOSE,RANDOM 267 mg/dL (74-106); MAGNESIUM 1.8 mg/dL (1.8-2.4); PHOSPHOROUS 4.6 mg/dL (2.5-4.9); POTASSIUM 3.4 mmol/L (3.5-5.1); SODIUM 139 mmol/L (136-145)
[2018-12-19] MEDS ORDERED: POTASSIUM CHLORIDE TABS 20 MEQ TABLET.ER (FP) PO ONE (09:28)
[2018-12-19] MEDS ORDERED: INSULIN (NOVOLOG) ASPART 100 UNITS/ML 10ML VIAL ONE (11:12)
[2018-12-19] MEDS ORDERED: INSULIN SLIDING SCALE (NOVOLOG) 1 VIAL SQ SCH ×2 (11:31→23:14)
[2018-12-19 13:44] VITALS: TEMP 98.6
--- NOTE | 2018-12-19 14:16 | CON.ID ---
Consult Consult Specialty:: infectious disease Referred by:: hospitalist Reason for Consultation:: umbilical abscess - History of Present Illness Chief Complaint: sent for hyperglycemia History of Present Illness: seen in ED 12/09 for periumbilical pain had a ct scan showing a small umbilical abscess-1 cm in diameter no fevers no chills no outpt antibiotics takes metformin and insulin very poor diet eats junk food - History Source History Provided By: Patient Limitations to Obtaining History: No Limitations - Past Medical History Endocrine: Yes: Diabetes Mellitus - Alcohol/Substance Use Hx Alcohol Use: No - Smoking History Smoking history: Unknown if ever smoked Have you smoked in the past 12 months: Yes Aproximately how many cigarettes per day: 6 - Social History ADL: Independent Place of : [facility] History of Recent Travel: No Home Medications - Allergies Allergies/Adverse Reactions: Allergies Allergy/AdvReac Type Severity Reaction Status Date / Time peanut Allergy Intermediate Swelling Verified 12/10/18 19:33 - Home Medications Home Medications: Ambulatory Orders Metformin HCl [Glucophage] 1,000 mg PO BID 12/09/18 Family Disease History - Family Disease History Family Disease History: Diabetes: Grandparent, Father Review of Systems - Review of Systems Constitutional: reports: No Symptoms Eyes: reports: No Symptoms HENT: reports: No Symptoms Neck: reports: No Symptoms Cardiovascular: reports: No Symptoms Respiratory: reports: No Symptoms Gastrointestinal: reports: No Symptoms Genitourinary: reports: No Symptoms Musculoskeletal: reports: No Symptoms Integumentary: reports: No Symptoms Neurological: reports: No Symptoms Physical Exam Vital Signs: Vital Signs Temperature 98.6 F 12/19/18 09:00 Pulse Rate 75 12/19/18 09:00 Respiratory Rate 16 12/19/18 09:00 Blood Pressure 118/70 12/19/18 09:00 O2 Sat by Pulse Oximetry (%) 97 12/19/18 09:00 Constitutional: Yes: Well Nourished, No Distress, Calm Eyes: Yes: Conjunctiva Clear HENT: Yes: Atraumatic, Normocephalic. No: Pharyngeal Erythema, Thrush Neck: Yes: Supple Cardiovascular: Yes: Regular Rate and Rhythm Respiratory: Yes: Regular, CTA Bilaterally Gastrointestinal: Yes: Normal Bowel Sounds, Soft, Other (unable to visualize abscess, no erythema, no fluctuance). No: Tenderness, Epigastrium Extremities: Yes: WNL Edema: No Labs: CBC, BMP 12/19/18 06:50 12/19/18 06:50 Imaging - Results Chest X-ray: Report Reviewed Cat Scan: Report Reviewed Problem List - Problems (1) Abscess, umbilical Code(s): L02.216 - CUTANEOUS ABSCESS OF UMBILICUS (2) Diabetes Code(s): E11.9 - TYPE 2 DIABETES MELLITUS WITHOUT COMPLICATIONS (3) History of ESBL E. coli infection Code(s): Z86.19 - PERSONAL HISTORY OF OTHER INFECTIOUS AND PARASITIC DISEASES Assessment/Plan poorly controlled diabetes- needs education and nutritional evaluation umbilical hernia- continue clindamycin, surgery to see prior history of ecoli esbl in perirectal abscess- contact isolation
[2018-12-19] MEDS: LACTATED RINGERS SOLUTION 1,000 ML IV SCH (14:29)
--- NOTE | 2018-12-19 16:19 | PN ---
Teaching Attending Note Name of Resident: Randee Moss ATTENDING PHYSICIAN STATEMENT I saw and evaluated the patient. I reviewed the resident's note and discussed the case with the resident. I agree with the resident's findings and plan as documented with exceptions below. SUBJECTIVE: Patient seen and examined. wants to eat, no complaints. OBJECTIVE: Vital Signs Period Temp Pulse Resp BP Sys/Lennon Pulse Ox Last 24 Hr 98.6 F 75 16 118/70 97-99 Intake & Output 12/16/18 12/17/18 12/18/18 12/19/18 23:59 23:59 23:59 23:59 Intake Total 1100 Balance 1100 Weight 205 lb 211 lb 11.2 oz General: lying in bed in no acute distress Chest: CTAB, no rales or wheezing Abdomen:Soft, NT, no wilda-umbilical tenderness or fluid collection noted Extremities: no edema Home Medications Medication Instructions Recorded Metformin HCl [Glucophage] 1,000 mg PO BID 12/09/18 Insulin (Levemir) [Levemir Vial] 35 unit SQ HS 12/19/18 Active Medications Clindamycin Phosphate (Cleocin 600 Mg Premix Ivpb -) 600 mg in 50 mls @ 100 mls /hr IVPB Q8H-IV VERO; Protocol Last Admin: 12/19/18 09:17 Dose: 100 mls/hr Lactated Ringer's (Lactated Ringers Solution) 1,000 mls @ 100 mls/hr IV ASDIR VERO Last Admin: 12/19/18 14:29 Dose: 100 mls/hr Insulin Aspart (Novolog Vial Sliding Scale -) 1 vial SQ ACHS VERO; Protocol Insulin Detemir (Levemir Vial) 8 units SQ AM VERO Last Admin: 12/19/18 06:15 Dose: Not Given Laboratory Results - last 24 hr 12/18/18 12/18/18 12/18/18 15:25 21:43 21:45 WBC RBC Hgb Hct MCV MCH MCHC RDW Plt Count MPV Absolute Neuts (auto) Neutrophils % Lymphocytes % Monocytes % Eosinophils % Basophils % Nucleated RBC % PT with INR INR PTT (Actin FS) Sodium 132 L Potassium 4.0 Chloride 95 L Carbon Dioxide 27 Anion Gap 10 BUN 12 Creatinine 1.1 Creat Clearance w eGFR 81.56 POC Glucometer 579 Random Glucose 428 H* Calcium 9.8 Phosphorus Magnesium Total Bilirubin 0.6 AST 11 L ALT 20 Alkaline Phosphatase 152 H Total Protein 7.9 Albumin 4.0 Opiates Screen Negative Methadone Screen Negative Barbiturate Screen Negative Phencyclidine Screen Negative Ur Amphetamines Screen Negative MDMA (Ecstasy) Screen Negative Benzodiazepines Screen Negative Cocaine Screen Negative U Marijuana (THC) Screen Positive A* Acetone, Qual Negative Blood Type Antibody Screen 12/19/18 12/19/18 12/19/18 02:10 03:04 03:04 WBC RBC Hgb Hct MCV MCH MCHC RDW Plt Count MPV Absolute Neuts (auto) Neutrophils % Lymphocytes % Monocytes % Eosinophils % Basophils % Nucleated RBC % PT with INR 9.90 INR 0.84 PTT (Actin FS) 32.9 Sodium Potassium Chloride Carbon Dioxide Anion Gap BUN Creatinine Creat Clearance w eGFR POC Glucometer 239 Random Glucose Calcium Phosphorus Magnesium Total Bilirubin AST ALT Alkaline Phosphatase Total Protein Albumin Opiates Screen Methadone Screen Barbiturate Screen Phencyclidine Screen Ur Amphetamines Screen MDMA (Ecstasy) Screen Benzodiazepines Screen Cocaine Screen U Marijuana (THC) Screen Acetone, Qual Blood Type O POSITIVE Antibody Screen Negative 12/19/18 12/19/18 12/19/18 06:50 06:50 11:21 WBC 6.1 RBC 4.13 Hgb 13.7 Hct 39.0 MCV 94.5 MCH 33.2 MCHC 35.1 RDW 11.8 L Plt Count 204 MPV 11.3 H Absolute Neuts (auto) 3.5 Neutrophils % 57.3 D Lymphocytes % 33.5 D Monocytes % 6.7 Eosinophils % 1.8 D Basophils % 0.7 Nucleated RBC % 0 PT with INR INR PTT (Actin FS) Sodium 139 Potassium 3.4 L Chloride 104 Carbon Dioxide 26 Anion Gap 9 BUN 12 Creatinine 0.8 Creat Clearance w eGFR 117.79 POC Glucometer 317 Random Glucose 267 H Calcium 8.6 Phosphorus 4.6 Magnesium 1.8 Total Bilirubin AST ALT Alkaline Phosphatase Total Protein Albumin Opiates Screen Methadone Screen Barbiturate Screen Phencyclidine Screen Ur Amphetamines Screen MDMA (Ecstasy) Screen Benzodiazepines Screen Cocaine Screen U Marijuana (THC) Screen Acetone, Qual Blood Type Antibody Screen Abdominal US results reviewed ASSESSMENT AND PLAN: 23 yom with PMHx of non compliant IDDM, multiple admissions when left AMA, recently admitted with concerns for wilda-umbilical abscess, when left AMA sent from clinical with hyperglycemia -IDDM, poorly controlled, from non compliance -Wilda-umbilical fluid collection, ?Abscess Plan: andriy, ISS, NPO, IVF ID input noted, Clindamycin. Await surgery input, NPO for now DIspo pending clinical improvement. Plan discussed with patient and nursing in detail, all questions answered.
--- NOTE | 2018-12-19 18:34 | PN ---
Physical Exam: SUBJECTIVE: Patient seen and examined. He is complaining of periumbilical abscess and also hungry. OBJECTIVE: Vital Signs Period Temp Pulse Resp BP Sys/Lennon Pulse Ox Last 24 Hr 98.6 F 75 16 118/70 97-99 GENERAL: The patient is awake, alert, and fully oriented, lying in bed with eyes closed, answering questions. HEAD: Normal with no signs of trauma. EYES: Extraocular movements intact, sclera anicteric, conjunctiva clear. ENT: Moist mucous membranes. NECK: Supple. LUNGS: Breath sounds equal, clear to auscultation bilaterally, no wheezes, no crackles, no accessory muscle use. HEART: Regular rate and rhythm, S1, S2 without murmur, rub or gallop. ABDOMEN: Obese, soft, nontender, nondistended, normoactive bowel sounds, mild swelling and tenderness over umbilicus, no drainage appreciated. EXTREMITIES: no edema. NEUROLOGICAL: Normal speech, no facial asymmetry, gait not observed. PSYCH: Normal mood, normal affect. SKIN: Warm, dry, normal turgor, no rashes. Laboratory Results - last 24 hr 12/18/18 12/18/18 12/19/18 21:43 21:45 02:10 WBC RBC Hgb Hct MCV MCH MCHC RDW Plt Count MPV Absolute Neuts (auto) Neutrophils % Lymphocytes % Monocytes % Eosinophils % Basophils % Nucleated RBC % PT with INR INR PTT (Actin FS) Sodium Potassium Chloride Carbon Dioxide Anion Gap BUN Creatinine Creat Clearance w eGFR POC Glucometer 579 239 Random Glucose Calcium Phosphorus Magnesium Opiates Screen Negative Methadone Screen Negative Barbiturate Screen Negative Phencyclidine Screen Negative Ur Amphetamines Screen Negative MDMA (Ecstasy) Screen Negative Benzodiazepines Screen Negative Cocaine Screen Negative U Marijuana (THC) Screen Positive A* Blood Type Antibody Screen 12/19/18 12/19/18 12/19/18 03:04 03:04 06:50 WBC 6.1 RBC 4.13 Hgb 13.7 Hct 39.0 MCV 94.5 MCH 33.2 MCHC 35.1 RDW 11.8 L Plt Count 204 MPV 11.3 H Absolute Neuts (auto) 3.5 Neutrophils % 57.3 D Lymphocytes % 33.5 D Monocytes % 6.7 Eosinophils % 1.8 D Basophils % 0.7 Nucleated RBC % 0 PT with INR 9.90 INR 0.84 PTT (Actin FS) 32.9 Sodium Potassium Chloride Carbon Dioxide Anion Gap BUN Creatinine Creat Clearance w eGFR POC Glucometer Random Glucose Calcium Phosphorus Magnesium Opiates Screen Methadone Screen Barbiturate Screen Phencyclidine Screen Ur Amphetamines Screen MDMA (Ecstasy) Screen Benzodiazepines Screen Cocaine Screen U Marijuana (THC) Screen Blood Type O POSITIVE Antibody Screen Negative 12/19/18 12/19/18 12/19/18 06:50 11:21 17:03 WBC RBC Hgb Hct MCV MCH MCHC RDW Plt Count MPV Absolute Neuts (auto) Neutrophils % Lymphocytes % Monocytes % Eosinophils % Basophils % Nucleated RBC % PT with INR INR PTT (Actin FS) Sodium 139 Potassium 3.4 L Chloride 104 Carbon Dioxide 26 Anion Gap 9 BUN 12 Creatinine 0.8 Creat Clearance w eGFR 117.79 POC Glucometer 317 257 Random Glucose 267 H Calcium 8.6 Phosphorus 4.6 Magnesium 1.8 Opiates Screen Methadone Screen Barbiturate Screen Phencyclidine Screen Ur Amphetamines Screen MDMA (Ecstasy) Screen Benzodiazepines Screen Cocaine Screen U Marijuana (THC) Screen Blood Type Antibody Screen Active Medications Generic Name Dose Route Start Last Admin Trade Name Freq PRN Reason Stop Dose Admin Clindamycin Phosphate 600 mg in 50 mls @ 100 mls/hr 12/18/18 23:15 12/19/18 17:23 Cleocin 600 Mg Premix Ivpb - IVPB 100 mls/hr Q8H-IV VERO Administration Protocol Lactated Ringer's 1,000 mls @ 100 mls/hr 12/18/18 23:15 12/19/18 14:29 Lactated Ringers Solution IV 100 mls/hr ASDIR VERO Administration Insulin Aspart 1 vial 12/19/18 11:31 12/19/18 17:07 Novolog Vial Sliding Scale - SQ 6 units ACHS VERO Administration Protocol Insulin Detemir 8 units 12/19/18 07:00 12/19/18 06:15 Levemir Vial SQ Not Given AM VERO ASSESSMENT/PLAN: 23 y/o M w/ PMHx IDDM (non-compliant), admitted for umbilical abscess and hyperglycemia Periumbilical abscess: -follow up ID recommendations, will continue Clindamycin -purulent umbilical lesion identified as abscess by US -f/u surgery recommendations -NPO -wound culture H/o of ESBL: -cont precautions DM: 8U Levemir in AM, BGM & SSI ACHS DVT PPX: -mechanical DVT PPx Dispo: med/surg Problem List - Problems (1) Abscess, umbilical Code(s): L02.216 - CUTANEOUS ABSCESS OF UMBILICUS (2) History of ESBL E. coli infection Code(s): Z86.19 - PERSONAL HISTORY OF OTHER INFECTIOUS AND PARASITIC DISEASES (3) Hyperglycemia Code(s): R73.9 - HYPERGLYCEMIA, UNSPECIFIED (4) Diabetes Code(s): E11.9 - TYPE 2 DIABETES MELLITUS WITHOUT COMPLICATIONS Visit type - Emergency Visit Emergency Visit: Yes ED Registration Date: 12/18/18 Care time: The patient presented to the Emergency Department on the above date and was hospitalized for further evaluation of their emergent condition. - New Patient This patient is new to me today: Yes Date on this admission: 12/19/18 - Critical Care Critical Care patient: No - Discharge Referral Referred to [facility] Med [facility] No
[2018-12-19 19:07] VITALS: BP 113/69; PULSE 87
--- NOTE | 2018-12-19 20:00 | CONSULT ---
Consult Consult Specialty:: General Surgery Referred by:: Kris Angeles Reason for Consultation:: ? umbilical abscess - History of Present Illness Chief Complaint: umbilical pain, drainage History of Present Illness: 23yo M with uncontrolled diabetes, occasional smoker, daily marijuana smoker, with h/o perirectal and inner thigh abscesses in past requiring I&D, began having umbilical pain about 2 weeks ago. He then noticed a small red bump in the base of his belly button, and came to ER then, at which time, he got IV antibiotic and it spontaneously opened and drained some yellow and red fluid. CT at that time showed a small fluid collection at the base of the umbilicus. It felt better after that, and he left AMA because he got impatient. He kept it covered with gauze and tape for a few days, and then the drainage mostly stopped , but it has occasionally drained since. He came back another time after that to the ER, but also left AMA. About 4 days ago, in the shower, there was some whitish, "[id number]" drainage. He returned to the ER yesterday because the lump was still there, but it does not hurt like it did before. WBC has been normal, he is afebrile. US showed a slightly larger or similar-sized fluid collection (different imaging modalities) at the umbilical base without clear connection intraabdominally. He was admitted to medicine and is getting Clindamycin IV. Surgery was asked to assess. He is seen and examined in bed with girlfriend present. He states the area does not hurt at this time. He believes it was more red locally and swollen the first time, before it opened and drained. The little nodule present in the base of the belly button is always pink/red. He denies dysuria or pain with urination , or hematuria. No radiation of the umbilical pain in any direction. No f/c, n/v , d/c. He is hungry. He reports his sugars at home are usually 300s or more, though he doesn't check them regularly. - History Source History Provided By: Patient Limitations to Obtaining History: No Limitations - Past Medical History Infectious Disease: Yes: Other (E. coli ESBL from perirectal abscess 07/15) Endocrine: Yes: Diabetes Mellitus - Past Surgical History Additional Surgical History: I&D perirectal abscess 07/15 - Alcohol/Substance Use Hx Alcohol Use: No History of Substance Use: reports: Marijuana (daily) - Smoking History Smoking history: Current some day smoker Have you smoked in the past 12 months: Yes Aproximately how many cigarettes per day: 4 - Social History ADL: Independent History of Recent Travel: No Home Medications - Allergies Allergies/Adverse Reactions: Allergies Allergy/AdvReac Type Severity Reaction Status Date / Time peanut Allergy Intermediate Swelling Verified 12/10/18 19:33 - Home Medications Home Medications: Ambulatory Orders Metformin HCl [Glucophage] 1,000 mg PO BID 12/09/18 Insulin (Levemir) [Levemir Vial] 35 unit SQ HS 12/19/18 Family Disease History - Family Disease History Family Disease History: Diabetes: Grandparent, Father Review of Systems - Review of Systems Constitutional: denies: Chills, Fever, Loss of Appetite Eyes: reports: Other (wears glasses). denies: Recent Change in Vision HENT: denies: Difficult Swallowing, Nasal Congestion, Throat Pain Neck: denies: Swollen Glands, Tenderness Cardiovascular: denies: Chest Pain, Palpitations Respiratory: denies: Cough, SOB Gastrointestinal: reports: Abdominal Pain (umbilical, with hpi). denies: Constipation, Diarrhea, Nausea, Vomiting Genitourinary: denies: Burning, Dysuria, Hematuria Musculoskeletal: denies: Back Pain, Joint Pain, Muscle Pain Integumentary: reports: Lump (at base of umbilicus, with hpi). denies: Change in Color, Rash Neurological: denies: Dizziness, Headache, Unsteady Gait Psychiatric: reports: Anxiety, Panic Physical Exam Vital Signs: Vital Signs Temperature 98.6 F 12/19/18 19:04 Pulse Rate 87 12/19/18 19:04 Respiratory Rate 18 12/19/18 19:04 Blood Pressure 113/69 12/19/18 19:04 O2 Sat by Pulse Oximetry (%) 97 12/19/18 09:00 Constitutional: Yes: Well Nourished, No Distress, Calm Eyes: Yes: Conjunctiva Clear, EOM Intact HENT: Yes: Atraumatic, Normocephalic Neck: Yes: Supple, Trachea Midline Cardiovascular: Yes: Regular Rate and Rhythm Respiratory: Yes: Regular, CTA Bilaterally Gastrointestinal: Yes: Normal Bowel Sounds, Soft, Tenderness (minimal, at umbilical base only with deep palpation), Other (umbilicus with small nodule in base, somewhat pink, minimally tender to deep palpation with slightly larger bump felt underneath it; nodule difficult to expose to see, but had scant blood oozing after surface was manipulated - no current drainage, no surrounding erythema, not fluctuant). No: Distention, Hernia ...Rectal Exam: Yes: Deferred Renal/: No: CVA Tenderness - Left, CVA Tenderness - Right Musculoskeletal: No: Back Pain, Joint Swelling Extremities: No: Cool, Cyanosis Edema: No Peripheral Pulses WNL: Yes Integumentary: Yes: Tattoos. No: Jaundice, Rash Neurological: Yes: Alert, Oriented Psychiatric: Yes: Alert, Oriented Labs: CBC, BMP 12/19/18 06:50 12/19/18 06:50 CMP Sodium 139 mmol/L (136-145) 12/19/18 06:50 Potassium 3.4 mmol/L (3.5-5.1) L 12/19/18 06:50 Chloride 104 mmol/L (98-107) 12/19/18 06:50 Carbon Dioxide 26 mmol/L (21-32) 12/19/18 06:50 Anion Gap 9 MMOL/L (8-16) 12/19/18 06:50 BUN 12 mg/dL (7-18) 12/19/18 06:50 Creatinine 0.8 mg/dL (0.55-1.3) 12/19/18 06:50 Creat Clearance w eGFR 117.79 (>60) 12/19/18 06:50 POC Glucometer 257 UNITS (80-120) 12/19/18 17:03 Random Glucose 267 mg/dL (74-106) H 12/19/18 06:50 Calcium 8.6 mg/dL (8.5-10.1) 12/19/18 06:50 Phosphorus 4.6 mg/dL (2.5-4.9) 12/19/18 06:50 Magnesium 1.8 mg/dL (1.8-2.4) 12/19/18 06:50 Total Bilirubin 0.6 mg/dL (0.2-1) 12/18/18 15:25 AST 11 U/L (15-37) L 12/18/18 15:25 ALT 20 U/L (13-61) 12/18/18 15:25 Alkaline Phosphatase 152 U/L (45-117) H 12/18/18 15:25 Total Protein 7.9 g/dl (6.4-8.2) 12/18/18 15:25 Albumin 4.0 g/dl (3.4-5.0) 12/18/18 15:25 INR, PTT INR 0.84 (0.83-1.09) 12/19/18 03:04 Imaging - Results Cat Scan: Report Reviewed, Image Reviewed (image reviewed - small fluid collection at base of umbilicus, does not clearly connect to any tract under fascia, but difficult to tell definitively) Ultrasound: Report Reviewed, Image Reviewed (small fluid collection at umbilical base, also not clearly with underlying sinus tract ?) Problem List - Problems (1) Umbilical pain Code(s): R10.33 - PERIUMBILICAL PAIN (2) Periumbilic swelling, mass or lump Assessment/Plan: patient with nodule at base of umbilicus, initially with pain, then with drainage may have been infected at one point - does not appear so currently differential includes subcutaneous cyst, urachal cyst, granuloma, or infection of any of these unclear if requires drainage or excision - not conducive to a simple bedside procedure would prefer to identify if any chance of being urachal (or vitelline?) in origin - which could indicate need for complete removal will discuss with radiology in am to see if any further imaging could definitively identify any underlying sinus tracts ok for diet at this time - diabetic diet ordered left 2x2 gauze and tape on site because of scant blood encountered after manipulation/exam will f/u tomorrow Code(s): R19.05 - PERIUMBILIC SWELLING, MASS OR LUMP (3) Umbilical discharge Code(s): R19.8 - OTH SYMPTOMS AND SIGNS INVOLVING THE DGSTV SYS AND ABDOMEN (4) Uncontrolled diabetes mellitus Assessment/Plan: medicine to address need for compliance with diet and followup does not check sugars at home needs improved glucose control at higher risk for wound complications with any surgical procedure, given high sugars and smoking status last A1C was in 07/15 -- 13.2 would recheck Code(s): E11.65 - TYPE 2 DIABETES MELLITUS WITH HYPERGLYCEMIA Qualifiers: Diabetes mellitus type: type 2 Glycemic state: with hyperglycemia Qualified Code(s): E11.65 - Type 2 diabetes mellitus with hyperglycemia
--- NOTE | 2018-12-20 12:21 | DS ---
Physical Exam: SUBJECTIVE: Patient seen and examined, feeling good, asked for food. OBJECTIVE: Vital Signs Period Temp Pulse Resp BP Sys/Lennon Pulse Ox Last 24 Hr 98.6 F 87 18 113/69 PHYSICAL EXAM GENERAL: The patient is awake, alert, and fully oriented, lying in bed. HEAD: Normal with no signs of trauma. EYES: Extraocular movements intact. ENT: Moist mucous membranes. NECK: Supple. LUNGS: Breath sounds equal, clear to auscultation bilaterally, no wheezes, no crackles, no accessory muscle use. HEART: Regular rate and rhythm, S1, S2 without murmur, rub or gallop. ABDOMEN: Obese, soft, nontender, +BS, mild swelling and tenderness over umbilicus, no drainage appreciated, no mass appreciated. EXTREMITIES: no edema. NEUROLOGICAL: Normal speech, no facial asymmetry, gait not observed. PSYCH: Normal mood, normal affect. SKIN: Warm, dry, no rashes. LABS Laboratory Results - last 24 hr 12/19/18 17:03 POC Glucometer 257 HOSPITAL COURSE: Patient is a 23 y/o M w/ PMHx IDDM (non-compliant), has had recent ED visits resulting in leaving AMA after w/u for PNA and umbilical abscess, visited primary care today on referral from prior visit and was found to be hyperglycemic to 500s and have a purulent umbilical abscess. Denies any other complaints. Afebrile w/ stable vitals on presentation, labs only remarkable for glucose 428. CT a/p on 12/09/18 found ring-enhancing deep umbilical fluid collection, abd US ED confirmed the same finding. Patient is prescribed various insulins but does not take them regularly, sugars consistently found to be 400s-500s. Received NS bolus, 6U IV insulin, Vancomycin, and Zosyn in ED. He was admitted for umbilical abscess and uncontrolled diabetes with hyperglycemia. During his hospitalization we consulted surgery that recommended IR evaluation, possible intervention. he was given Clindamycin, ID was consulted. We also put the patient on ISS and long acting insulin to manage diabetes. In the evening, the patient decided to leave the hospital AMA. Risks and benefits of leaving the hospital, following medical team recommendations were explained to the patient. Date of Admission:12/18/18 Date of Discharge: 12/20/18 Minutes to complete discharge: 30 Discharge Summary Reason For Visit: ABSCESS OF UMBILICUS,UNCONTROLLED DIABETES MELLITU Condition: Stable - Instructions Disposition: AGAINST MEDICAL ADVICE - Home Medications Comprehensive Discharge Medication List: Ambulatory Orders Metformin HCl [Glucophage] 1,000 mg PO BID 12/09/18 Insulin (Levemir) [Levemir Vial] 35 unit SQ HS 12/19/18 Problem List - Problems (1) Abscess, umbilical Code(s): L02.216 - CUTANEOUS ABSCESS OF UMBILICUS (2) History of ESBL E. coli infection Code(s): Z86.19 - PERSONAL HISTORY OF OTHER INFECTIOUS AND PARASITIC DISEASES (3) Hyperglycemia Code(s): R73.9 - HYPERGLYCEMIA, UNSPECIFIED (4) Diabetes Code(s): E11.9 - TYPE 2 DIABETES MELLITUS WITHOUT COMPLICATIONS This patient is new to me today: No Emergency Visit: Yes ED Registration Date: 12/18/18 Care time: The patient presented to the Emergency Department on the above date and was hospitalized for further evaluation of their emergent condition. Critical Care patient: No - Discharge Referral Referred to [facility] No
== END 2018-12-19 20:30 | disposition left against medical advice (07) | DRG 383 ==
LOC: JER 15:09 → JERBED 22:04 → J7W 12-19 03:24
PROVIDERS: ADMIT Internal Medicine; ATTEND Hospitalist
DX: L02.216 Cutaneous abscess of umbilicus (principal); E11.65 Type 2 diabetes mellitus with hyperglycemia; E87.1 Hypo-osmolality and hyponatremia; E66.3 Overweight; Z68.30 Body mass index [BMI] 30.0-30.9, adult; F12.20 Cannabis dependence, uncomplicated; F17.200 Nicotine dependence, unspecified, uncomplicated; R19.05 Periumbilic swelling, mass or lump; R19.8 Other specified symptoms and signs involving the digestive system and abdomen; Z91.14 Patient's other noncompliance with medication regimen; Z79.4 Long term (current) use of insulin; Z86.19 Personal history of other infectious and parasitic diseases
CPT/HCPCS: 36415; 71046-TC-FY; 76705-TC; 80048; 80053; 80307; 82009; 82803; 82962; 83735; 84100; 85025; 85610; 85730; 86850; 86900; 86901; 99285-25; J7030

== ENCOUNTER 2019-05-30 16:21 | Emergency (ER) | payer OTHER ==
--- NOTE | 2019-05-30 16:36 | PDOC ---
Rapid Medical Evaluation Chief Complaint: Abscess Boil Time Seen by Provider: 05/30/19 16:34 Medical Evaluation: Allergies Allergy/AdvReac Type Severity Reaction Status Date / Time peanut Allergy Intermediate Swelling Verified 12/10/18 19:33 05/30/19 16:34 I have performed a brief in-person evaluation of this patient. The patient presents with a chief complaint of: pubis abscess x 3 days, +DM, + hx of same Pertinent physical exam findings: not examined I have ordered the following: nothing The patient will proceed to the ED for further evaluation. 05/30/19 16:36 Discharge Disposition - Diagnosis Abscess - Discharge Dispostion Condition at time of disposition: Stable - Referrals - Patient Instructions - Post Discharge Activity
[2019-05-30 16:37] VITALS: BP 102/72; PULSE 96; TEMP 98.3; BMI 29.4
--- NOTE | 2019-05-30 17:36 | PDOC ---
History of Present Illness - General Chief Complaint: Abscess Boil Stated Complaint: Abscess Time Seen by Provider: 05/30/19 16:34 History Source: Patient Exam Limitations: Clinical Condition - History of Present Illness Initial Comments: 05/30/19 17:44 Patient with history of uncontrolled diabetes on insulin presented with complaint of 2 days history of abscess to posterior shaft of penis for 2 days. Patient believes abscess was caused by him shaving. Denies burning sensation, or problems with urination, penile discharge, scrotal pain or swelling. Denies fever, chills or any other symptoms. Patient report last fingerstick at home was 2 days ago which was 325. Denies any other symptoms Is this a multiple visit Asthma Patient?: No Past History - Past Medical History Allergies/Adverse Reactions: Allergies Allergy/AdvReac Type Severity Reaction Status Date / Time peanut Allergy Intermediate Swelling Verified 12/10/18 19:33 Home Medications: Ambulatory Orders Cephalexin Monohydrate [Keflex -] 500 mg PO BID 7 Days #14 capsule 05/30/19 Insulin Lispro [Admelog Solostar] 0 unit SQ AC 05/30/19 Sulfamethoxazole/Trimethoprim [Bactrim Ds -] 1 tab PO BID #14 tablet 05/30/19 Anemia: No Asthma: No Cancer: No Cardiac Disorders: No CVA: No COPD: No CHF: No Dementia: No Diabetes: Yes GI Disorders: No Disorders: No HTN: No Hypercholesterolemia: No Liver Disease: No Seizures: No Thyroid Disease: No - Surgical History Abdominal Surgery: No Appendectomy: No Cardiac Surgery: No Cholecystectomy: No Lung Surgery: No Neurologic Surgery: No Orthopedic Surgery: No - Immunization History Immunization Up to Date: Yes - Psycho Social/Smoking Cessation Hx Smoking Status: Yes Smoking History: Never smoked Have you smoked in the past 12 months: No Number of Cigarettes Smoked Daily: 4 Information on smoking cessation initiated: No Hx Alcohol Use: No Drug/Substance Use Hx: Yes Substance Use Type: None Hx Substance Use Treatment: No Review of Systems - Review of Systems Able to Perform ROS?: Yes Is the patient limited Portuguese proficient: No Constitutional: No: Fever, Malaise, Weakness HEENTM: No: Symptoms Reported Respiratory: No: Symptoms reported Cardiac (ROS): No: Symptoms Reported ABD/GI: No: Symptoms Reported, Nausea, Vomiting : Yes: Symptoms Reported, See HPI, Pain, Testicular Swelling (abscess under shaft of penis), Other (pain over abscess of penis). No: Burning, Dysuria, Discharge, Frequency, Urgency, Testicular Pain Musculoskeletal: No: Symptoms Reported All Other Systems: Reviewed and Negative *Physical Exam - Vital Signs Last Vital Signs Temp Pulse Resp BP Pulse Ox 98.3 F 96 H 18 102/72 97 05/30/19 16:34 05/30/19 16:34 05/30/19 16:34 05/30/19 16:34 05/30/19 16:34 - Physical Exam General Appearance: Yes: Nourished, Appropriately Dressed. No: Apparent Distress HEENT: positive: Normal ENT Inspection Neck: positive: Supple Respiratory/Chest: positive: Normal Breath Sounds. negative: Respiratory Distress, Accessory Muscle Use Cardiovascular: positive: Regular Rhythm, Regular Rate Male Genitalia: positive: other (2cm hard induration to base of posterior shaft of penis c/w abscess. no open wound or drainage from site). negative: discharge , epididymus tender, inguinal hernia, hernia Musculoskeletal: positive: Normal Inspection Extremity: positive: Normal Inspection Integumentary: positive: Normal Color, Swelling (2cm hard abscess under base of shaft of penis. no open wound or drainage from site. mild skin erythema around area of shaved area of scrotum and base of penis) Neurologic: positive: Fully Oriented, Alert, Normal Response ED Treatment Course - RADIOLOGY Radiology Studies Ordered: Category Date Time Status SCROTUM AND CONTENTS US [US] Stat Ultrasound 05/30/19 17:27 Ordered Medical Decision Making - Medical Decision Making 05/30/19 17:46 Patient with history of uncontrolled diabetes on insulin presented with complaint of 2 days history of abscess to posterior shaft of penis for 2 days. Patient believes abscess was caused by him shaving. Denies burning sensation, or problems with urination, penile discharge, scrotal pain or swelling. Denies fever, chills or any other symptoms. Patient report last fingerstick at home was 2 days ago which was 325. Denies any other symptoms CBC, CMP, glucose fingerstick and scrotal pelvic ultrasound ordered. Patient declines lab work and ultrasound as he needs to go somewhere and could not wait for blood work and ultrasound. Explained to patient he will have to sign out AMA if he is refusing blood work and explained to patient risk of not receiving blood work and ultrasound including worsening scrotal swelling, systemic infection. Patient voiced understanding and signed AMA form. Referral to urology given to patient and patient started on Keflex and Bactrim antibiotics for abscess with strict follow-up instructions to follow-up with urology. Discharge - Discharge Information Problems reviewed: Yes Clinical Impression/Diagnosis: Abscess of shaft of penis Uncontrolled diabetes mellitus Qualifiers: Diabetes mellitus type: type 2 Glycemic state: with hyperglycemia Qualified Code(s): E11.65 - Type 2 diabetes mellitus with hyperglycemia Condition: Stable Disposition: AGAINST MEDICAL ADVICE - Admission No - Additional Discharge Information Prescriptions: Cephalexin Monohydrate [Keflex -] 500 mg PO BID 7 Days #14 capsule Sulfamethoxazole/Trimethoprim [Bactrim Ds -] 1 tab PO BID #14 tablet - Follow up/Referral Referrals: Boris Hoang MD [Staff Physician] - Call tomorrow - Patient Discharge Instructions Patient Printed Discharge Instructions: DI for Skin Abscess, DI for Scrotal Abscess Additional Instructions: Take prescribed medication information. Apply hot compresses to abscess 2-3 times a day for 5 to 10 minutes for swelling. Follow-up referred urology within the next 2 to 3 days. Take Motrin as needed for pain. Take home diabetes medication as discussed and take fingers stick log and follow-up with your primary care to make sure diabetes under control. It is very important that you keep your diabetes under control - Post Discharge Activity
== END 2019-05-30 17:44 | disposition left against medical advice (07) ==
LOC: JERFT 16:21
DX: N48.21 Abscess of corpus cavernosum and penis (principal); E10.65 Type 1 diabetes mellitus with hyperglycemia; Z79.4 Long term (current) use of insulin
CPT/HCPCS: 99281-25

== ENCOUNTER 2019-06-02 04:44 | Inpatient (IN) | payer OTHER ==
[2019-06-02 04:53] VITALS: BMI 29.4
[2019-06-02] MEDS ORDERED: SODIUM CHLORIDE 1,000 ML IV STA ×3 (04:55→06:29)
[2019-06-02] MEDS ORDERED: INSULIN REGULAR HUMAN 100 UNITS/ML *VIAL IVPUSH ONE ×2 (05:11→06:29)
[2019-06-02 05:16] LABS: BASO % 0.4 % (0-2.0); EOS % 0.9 % (0-4.5); HEMATOCRIT 42.2 % (35.4-49); HEMOGLOBIN 14.5 GM/dL (11.7-16.9); LYMPH % 9.8 % (8-40); MCH 32.9 pg (25.7-33.7); MCHC 34.3 g/dl (32.0-35.9); MEAN PLT VOLUME 11.2 fl (7.5-11.1); MONO % 6.7 % (3.8-10.2); NEUT % 82.2 % (42.8-82.8); PLATELET COUNT 197 K/MM3 (134-434); RBC 4.39 M/mm3 (4.00-5.60); RDW 12.1 % (11.9-15.9); WHITE BLOOD COUNT 13.3 K/mm3 (4.0-10.0)
[2019-06-02] MEDS ORDERED: CLINDAMYCIN 600MG PREMIX IVPB 600 MG/50 ML BAG IVPB ONE ×2 (05:17→05:28)
[2019-06-02] MEDS ORDERED: ACETAMINOPHEN 1000 MG/100 ML VIAL (NON FORMULARY) IVPB ONE (05:20)
[2019-06-02] MEDS ORDERED: ACETAMINOPHEN INJECTION 100 ML IVPB ONE (05:27)
[2019-06-02 05:33] LABS: ALBUMIN 4.1 g/dl (3.4-5.0); BILIRUBIN,TOTAL 0.6 mg/dL (0.2-1); BLOOD UREA NITROGEN 10.3 mg/dL (7-18); CALCIUM 9.4 mg/dL (8.5-10.1); CREATININE 1.1 mg/dL (0.55-1.3); POTASSIUM 4.3 mmol/L (3.5-5.1); TOT PROT 7.5 g/dl (6.4-8.2)
--- NOTE | 2019-06-02 05:54 | PDOC ---
History of Present Illness - General Chief Complaint: Blood Sugar Problem Stated Complaint: HIGH BLOOD SUGAR (800) Time Seen by Provider: 06/02/19 04:53 History Source: Patient Exam Limitations: No Limitations - History of Present Illness Initial Comments: Pt is a 23 yo M, with PMH of uncontrolled IDDM (with prior pneumonia, abscesses) , who is presenting from home with worsening abscess to his penis and scrotum. Pt was seen at [facility] 05/30 for abscess to his penis, which started on 05/29, from "buzzing his penis with clippers". Pt refused bloodwork and US at that time, and was discharged with keflex and bactrim, which he states he has been taking. Pt states the abscess has now spread into his scrotum starting yesterday, but denies any drainage or surrounding redness to the site. Pt denies any fevers/ chills, headache, vision changes, syncope, chest pain, palpitations, SOB, nausea /vomiting, abdominal pain, urinary symptoms, diarrhea/constipation, or leg swelling. Allergies: NKDA Social: Pt smokes 1/3 ppd. Pt denies any alcohol or drug use. Pt denies any recent travel or sick contacts. Surgical: multiple abscess drainage in thighs and buttocks. Family: no relevant history. 06/02/19 05:21 06/02/19 06:49 Past History - Travel Traveled outside of the country in the last 30 days: No Close contact w/someone who was outside of country & ill: No - Past Medical History Allergies/Adverse Reactions: Allergies Allergy/AdvReac Type Severity Reaction Status Date / Time peanut Allergy Intermediate Swelling Verified 06/02/19 04:52 Home Medications: Ambulatory Orders Cephalexin Monohydrate [Keflex -] 500 mg PO BID 7 Days #14 capsule 05/30/19 Insulin Lispro [Admelog Solostar] 0 unit SQ AC 05/30/19 Sulfamethoxazole/Trimethoprim [Bactrim Ds -] 1 tab PO BID #14 tablet 05/30/19 Anemia: No Asthma: No Cancer: No Cardiac Disorders: No CVA: No COPD: No CHF: No Dementia: No Diabetes: Yes GI Disorders: No Disorders: No HTN: No Hypercholesterolemia: No Liver Disease: No Seizures: No Thyroid Disease: No - Surgical History Abdominal Surgery: No Appendectomy: No Cardiac Surgery: No Cholecystectomy: No Lung Surgery: No Neurologic Surgery: No Orthopedic Surgery: No - Immunization History Immunization Up to Date: Yes - Psycho Social/Smoking Cessation Hx Smoking Status: Yes Smoking History: Never smoked Have you smoked in the past 12 months: No Number of Cigarettes Smoked Daily: 4 Information on smoking cessation initiated: No Hx Alcohol Use: No Drug/Substance Use Hx: No Substance Use Type: None Hx Substance Use Treatment: No Review of Systems - Review of Systems Able to Perform ROS?: Yes Is the patient limited Libyan proficient: No Constitutional: Yes: Weight Stable. No: Chills, Diaphoresis, Fever, Loss of Appetite, Malaise, Weakness HEENTM: No: Recent change in vision, Nose Congestion, Throat Pain, Throat Swelling, Difficulty Swallowing Respiratory: No: Cough, Orthopnea, Shortness of Breath Cardiac (ROS): No: Chest Pain, Edema, Lightheadedness, Palpitations, Syncope, Chest Tightness ABD/GI: No: Constipated, Diarrhea, Nausea, Poor Appetite, Poor Fluid Intake, Vomiting : Yes: Other (abscesses, see HPI). No: Burning, Dysuria, Frequency, Hematuria , Pain, Urgency, Testicular Swelling, Testicular Pain Musculoskeletal: No: Back Pain, Joint Pain Integumentary: Yes: See HPI, Lesions. No: Erythema, Rash Neurological: No: Headache, Numbness, Weakness, Unsteady Gait, Dizziness Psychiatric: No: Sleep Pattern Change, Change in Appetite Endocrine: No: Increased Urine, Change in Weight Hematologic/Lymphatic: No: Anemia, Blood Clots, Easy Bleeding, Easy Bruising All Other Systems: Reviewed and Negative *Physical Exam - Vital Signs Last Vital Signs Temp Pulse Resp BP Pulse Ox 98.3 F 103 H 20 127/81 99 06/02/19 04:52 06/02/19 04:52 06/02/19 04:52 06/02/19 04:52 06/02/19 04:52 - Physical Exam Comments: HR 103, pt afebrile. Pt in NAD, overweight body habitus. Pt alert and oriented x3. 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 No midline spinal tenderness, step-offs, or crepitus. Head normocephalic, atraumatic. Eyes PERRLA, EOMI. Oropharynx without erythema or exudates, no LAD b/l. No nasal congestion. Hearing intact. Clear heart sounds, S1/S2, no JVD, b/l pedal edema, or heart murmur. Clear lung sounds, no respiratory distress, wheezes, crackles, or accessory muscle use. No abdominal or CVA tenderness to palpation, no rebound, no guarding. Abdomen soft, non-distended, and with normoactive bowel sounds. Abscesses present on R ventral penile shaft and within R scrotum. No surrounding erythema or drainage. No abscesses of buttocks. R inguinal LNs palpable. Skin without jaundice or rash. 06/02/19 06:56 06/02/19 07:16 ED Treatment Course - LABORATORY CBC & Chemistry Diagram: 06/02/19 05:00 06/02/19 05:00 - ADDITIONAL ORDERS Additional order review: Laboratory Results 06/02/19 04:49 POC Glucometer > 600 06/02/19 04:49 POC Glucometer > 600 - Medications Given in the ED: ED Medications Discontinued Medications Generic Name Dose Route Start Last Admin Trade Name Freq PRN Reason Stop Dose Admin Insulin Human Regular 10 units 06/02/19 05:11 06/02/19 05:17 Novolin R Vial *For Ivpush Or Iv Drip Only* IVPUSH 06/02/19 05:12 10 units ONCE ONE Administration Medical Decision Making - Medical Decision Making Pt was seen at bedside, also will be seen by attending Dr. Espitia. Pt presenting with worsening penile/scrotal abscesses despite outpatient PO antibiotics. BGM > 600s. Provided 600 mg clindamycin and 1 g vancomycin for abx coverage. 2 L IV NS and 10 mg IV push insulin. Will continue to reassess pt and monitor for symptomatic improvement. ECG: NSR, intervals WNL. No TWIs or significant ST segment changes. No significant changes from prior ECG (12/10/2018). 06/02/19 07:17 BGM 500s after first dose of insulin. Will provide additional 1 L IV NS (3L total) and 10 mg IV push insulin. Pt taken for CT scan. Dr. Hoang on board (urology) and will follow the pt for potential drainage of abscesses. Signed out to day team. 06/02/19 07:21 Discharge - Discharge Information Problems reviewed: Yes Clinical Impression/Diagnosis: Hydradenitis, Penile abscess Condition: Stable - Follow up/Referral - Patient Discharge Instructions - Post Discharge Activity
[2019-06-02] MEDS ORDERED: VANCOMYCIN 1,000 MG in DEXTROSE 5%-WATER - 250 ML IVPB ONE (06:10)
[2019-06-02] MEDS ORDERED: VANCOMYCIN 1 GRAM (PRE-DOCKED) 1,000 MG/250 ML BAG IVPB ONE ×2 (06:16→18:34)
[2019-06-02] MEDS ORDERED: MORPHINE SULFATE 2 MG/ML VIAL ONE ×4 (06:17→21:50)
[2019-06-02] MEDS ORDERED: morphine CARPU-JECT 2 MG/1 ML DISP.SYRIN IVPUSH ONE (06:26)
--- NOTE | 2019-06-02 06:32 | PDOC ---
Attending Attestation - Resident Resident Name: Carmella Moya - ED Attending Attestation I have performed the following: I have examined & evaluated the patient, The case was reviewed & discussed with the resident, I agree w/resident's findings & plan - HPI HPI: 06/02/19 06:27 Pt comes with folliculitis of lower trigone area extending to the penis and scrotum. He states that his blood sugar is uncontrolled in the 200s and now is 500s. He has negative acetone. He will be treated with clinda and vanco and he will be admitted for IV abx, assessment possible surgical debridement by urology - Physicial Exam PE: 06/02/19 06:31 Pt has normal abd exam; heart and lungs normal. Pt is very uncomfortable with the penis swelling. 06/02/19 06:31 Pt has enlarged inguinal lymph nodes bilaterally. - Medical Decision Making 06/02/19 06:27 WBC is 13.3; shift 82% Pt has normal chem; Glc is 500s; acetone negative 06/02/19 06:31 Pt has no fever. 06/02/19 06:35 Pt is able to eat.
--- NOTE | 2019-06-02 07:54 | PDOC ---
*Physical Exam - Vital Signs Last Vital Signs Temp Pulse Resp BP Pulse Ox 98.3 F 103 H 20 120/81 99 06/02/19 04:52 06/02/19 04:52 06/02/19 04:52 06/02/19 06:20 06/02/19 04:52 ED Treatment Course - LABORATORY CBC & Chemistry Diagram: 06/02/19 05:00 06/02/19 05:00 - ADDITIONAL ORDERS Additional order review: Laboratory Results 06/02/19 06/02/19 06/02/19 07:11 06:12 05:00 Sodium Potassium Chloride Carbon Dioxide Anion Gap BUN Creatinine Est GFR (CKD-EPI)AfAm Est GFR (CKD-EPI)NonAf POC Glucometer 541 525 Random Glucose Calcium Total Bilirubin AST ALT Alkaline Phosphatase Total Protein Albumin Acetone, Qual Negative 06/02/19 06/02/19 05:00 04:49 Sodium 132 L Potassium 4.3 Chloride 95 L Carbon Dioxide 27 Anion Gap 11 BUN 10.3 Creatinine 1.1 Est GFR (CKD-EPI)AfAm 107.56 Est GFR (CKD-EPI)NonAf 92.81 POC Glucometer > 600 Random Glucose 587 H* Calcium 9.4 Total Bilirubin 0.6 AST 7 L ALT 15 Alkaline Phosphatase 155 H Total Protein 7.5 Albumin 4.1 Acetone, Qual 06/02/19 06/02/19 06/02/19 07:11 06:12 05:00 RBC 4.39 MCV 96.0 MCHC 34.3 RDW 12.1 MPV 11.2 H Neutrophils % 82.2 D Lymphocytes % 9.8 D Monocytes % 6.7 Eosinophils % 0.9 Basophils % 0.4 POC Glucometer 541 525 06/02/19 04:49 RBC MCV MCHC RDW MPV Neutrophils % Lymphocytes % Monocytes % Eosinophils % Basophils % POC Glucometer > 600 - Medications Given in the ED: ED Medications Discontinued Medications Generic Name Dose Route Start Last Admin Trade Name Freq PRN Reason Stop Dose Admin Acetaminophen 1,000 mg 06/02/19 05:20 06/02/19 06:13 Ofirmev Injection - IVPB 06/02/19 05:21 1,000 mg ONCE ONE Administration Sodium Chloride 1,000 mls @ 1,000 mls/hr 06/02/19 04:55 06/02/19 05:01 Normal Saline - IV 06/02/19 05:54 1,000 mls/hr ASDIR STA Administration Clindamycin Phosphate 600 mg in 50 mls @ 100 mls/hr 06/02/19 05:17 06/02/19 06:23 Cleocin 600 Mg Premix Ivpb - IVPB 06/02/19 05:46 100 mls/hr ONCE ONE Administration Protocol Sodium Chloride 1,000 mls @ 1,000 mls/hr 06/02/19 05:18 06/02/19 05:22 Normal Saline - IV 06/02/19 06:17 1,000 mls/hr ASDIR STA Administration Vancomycin HCl 1,000 mg/ 250 mls @ 166.667 mls/hr 06/02/19 06:10 06/02/19 07: 03 Dextrose IVPB 06/02/19 07:39 166.667 mls/hr ONCE ONE Administration Sodium Chloride 1,000 mls @ 1,000 mls/hr 06/02/19 06:29 06/02/19 07:03 Normal Saline - IV 06/02/19 07:28 1,000 mls/hr ASDIR STA Administration Insulin Human Regular 10 units 06/02/19 05:11 06/02/19 05:17 Novolin R Vial *For Ivpush Or Iv Drip Only* IVPUSH 06/02/19 05:12 10 units ONCE ONE Administration Insulin Human Regular 10 units 06/02/19 06:29 06/02/19 07:20 Novolin R Vial *For Ivpush Or Iv Drip Only* IVPUSH 06/02/19 06:30 10 units ONCE ONE Administration Morphine Sulfate 2 mg 06/02/19 06:26 06/02/19 06:27 Morphine Injection - IVPUSH 06/02/19 06:27 2 mg ONCE ONE Administration Medical Decision Making - Medical Decision Making 06/02/19 07:[address] Moya, 23yo M with PMH of IDDM, non complaint with medications presenting to ED with abscess to shaft of penis. States he has been taking abx wihtout improvement and says abscess appears worse. labs significant for hyperglycemia with glucose in the 600s. -3L NS with 20u insulin -Vanc -Clinda CTAP w/o contrast: There are inflammatory changes of the right groin extending to the skin over the proximal penis. This could represent cellulitis if there is a suspicion of infection. Borderline enlarged inguinal lymph nodes. There is fluid in the scrotum. This could represent a hydrocele. If there is a suspicion of a scrotal abscess then ultrasound is more sensitive pending US. no free air; soheila's less likely. repeat bgm: 324 will admit med/surg for abscess and uncontrolled diabetes. Discharge - Discharge Information Problems reviewed: Yes Clinical Impression/Diagnosis: Hydradenitis, Penile abscess, Hyperglycemia Condition: Stable - Follow up/Referral - Patient Discharge Instructions - Post Discharge Activity
[2019-06-02 07:59] LABS: URINE APPEARANCE Clear; URINE BILIRUBIN Negative (NEGATIVE); URINE COLOR Yellow; URINE GLUCOSE (UA) 3+ (NEGATIVE); URINE KETONE Negative (NEGATIVE); URINE LEUK ESTERASE Negative (NEGATIVE); URINE NITRITE Negative (NEGATIVE); URINE PROTEIN Negative (NEGATIVE)
[2019-06-02] MEDS ORDERED: ACETAMINOPHEN 325 MG TABLET (FP) PO PRN (09:30)
--- NOTE | 2019-06-02 09:36 | CON.GU ---
Consult - History of Present Illness History of Present Illness: 23 yo male, diabetic admitted with cellulitis of penile foreskin which originated from the area of the penoscrotal junction. Some straining ro void, no dysuira. H/o buttock abscgess in the past - Past Medical History Infectious Disease: Yes: Other (E. coli ESBL from perirectal abscess 07/15) Endocrine: Yes: Diabetes Mellitus - Alcohol/Substance Use Hx Alcohol Use: No History of Substance Use: reports: Marijuana (daily) - Smoking History Smoking history: Never smoked Have you smoked in the past 12 months: No Aproximately how many cigarettes per day: 4 - Social History ADL: Independent History of Recent Travel: No Home Medications - Allergies Allergies/Adverse Reactions: Allergies Allergy/AdvReac Type Severity Reaction Status Date / Time peanut Allergy Intermediate Swelling Verified 06/02/19 04:52 - Home Medications Home Medications: Ambulatory Orders Cephalexin Monohydrate [Keflex -] 500 mg PO BID 7 Days #14 capsule 05/30/19 Insulin Lispro [Admelog Solostar] 0 unit SQ AC 05/30/19 Sulfamethoxazole/Trimethoprim [Bactrim Ds -] 1 tab PO BID #14 tablet 05/30/19 Review of Systems - Review of Systems Genitourinary: reports: Other (decreased stream) Physical Exam- Vital Signs: Vital Signs Temperature 98.3 F 06/02/19 04:52 Pulse Rate 103 H 06/02/19 04:52 Respiratory Rate 20 06/02/19 04:52 Blood Pressure 120/81 06/02/19 06:20 O2 Sat by Pulse Oximetry (%) 99 06/02/19 04:52 Scrotum: Yes: Edema Penis: Yes: Bal[place] Labs: CBC, BMP 06/02/19 05:00 06/02/19 05:00 Imaging - Results Cat Scan: Report Reviewed Problem List - Problems (1) Cellulitis of shaft of penis Assessment/Plan: broad spectrum IV antibiotics tight glucose control await urine cultures pt refusing park if fails to improve,them will require debridement Code(s): N48.22 - CELLULITIS OF CORPUS CAVERNOSUM AND PENIS
--- NOTE | 2019-06-02 09:36 | HP ---
CHIEF COMPLAINT: penile shaft swelling PCP: none HISTORY OF PRESENT ILLNESS: Patient is a 23 y/o male with a past medical history of diabetes who presents for swelling of his penile shaft. On patient felt pain at the base of his penis and thought it might be an abscess. he came to the emergency room but deferred testing. He was discharged on bactrim and keflex. Patient notes the swelling has gotten worse and the pain is worse. He has had abscesses in his buttox region in the past. He took some of his diabetic medications last night, but is overall noncompliant. He reports he is sexually active. Denies fever, chills, nausea, dysuria, or hematuria. ER course was notable for: (1) (2) (3) Recent Travel: PAST MEDICAL HISTORY: DM PAST SURGICAL HISTORY: Social History: Smoking: Alcohol: Drugs: Allergies peanut Allergy (Intermediate, Verified 06/02/19 04:52) Swelling HOME MEDICATIONS: Home Medications Medication Instructions Recorded Cephalexin Monohydrate [Keflex -] 500 mg PO BID 7 Days #14 capsule 05/30/19 Insulin Lispro [Admelog Solostar] 0 unit SQ AC 05/30/19 Sulfamethoxazole/Trimethoprim 1 tab PO BID #14 tablet 05/30/19 [Bactrim Ds -] REVIEW OF SYSTEMS CONSTITUTIONAL: Absent: fever, chills, diaphoresis, generalized weakness, malaise, loss of appetite, weight change HEENT: Absent: rhinorrhea, nasal congestion, throat pain, throat swelling, difficulty swallowing, mouth swelling, ear pain, eye pain, visual changes CARDIOVASCULAR: Absent: chest pain, syncope, palpitations, irregular heart rate, lightheadedness , peripheral edema RESPIRATORY: Absent: cough, shortness of breath, dyspnea with exertion, orthopnea, wheezing, stridor, hemoptysis GASTROINTESTINAL: Absent: abdominal pain, abdominal distension, nausea, vomiting, diarrhea, constipation, melena, hematochezia GENITOURINARY: genital pain with swelling Absent: dysuria, frequency, urgency, hesitancy, hematuria, flank pain, MUSCULOSKELETAL: Absent: myalgia, arthralgia, joint swelling, back pain, neck pain SKIN: Absent: rash, itching, pallor HEMATOLOGIC/IMMUNOLOGIC: Absent: easy bleeding, easy bruising, lymphadenopathy, frequent infections ENDOCRINE: Absent: unexplained weight gain, unexplained weight loss, heat intolerance, cold intolerance NEUROLOGIC: Absent: headache, focal weakness or paresthesias, dizziness, unsteady gait, seizure, mental status changes, bladder or bowel incontinence PSYCHIATRIC: Absent: anxiety, depression, suicidal or homicidal ideation, hallucinations. PHYSICAL EXAMINATION Vital Signs - 24 hr 06/02/19 06/02/19 04:52 06:20 Temperature 98.3 F Pulse Rate 103 H Respiratory 20 Rate Blood Pressure 127/81 Blood Pressure 120/81 [Left Arm] O2 Sat by Pulse 99 Oximetry (%) GENERAL: Awake, alert, and fully oriented, in no acute distress. HEAD: Normal with no signs of trauma. LUNGS: Breath sounds equal, clear to auscultation bilaterally. No wheezes, and no crackles. No accessory muscle use. HEART: Regular rate and rhythm, normal S1 and S2 without murmur, rub or gallop. ABDOMEN: Soft, nontender, not distended, normoactive bowel sounds, no guarding, no rebound, no masses. No hepatomegaly or splenomegaly. : complete swelling of the penis, red, non hot or tender, pain on palpation, no abscess felt in scrotum, pain surrounding shaft of penis MUSCULOSKELETAL: Normal range of motion at all joints. LOWER EXTREMITIES: 2+ pulses, warm, well-perfused. No calf tenderness. No peripheral edema. SKIN: Warm, dry, normal turgor, no rashes or lesions noted, normal capillary refill. CBC, BMP 06/02/19 05:00 06/02/19 05:00 ASSESSMENT/PLAN: Patient is a 23 y/o male with a past medical history of diabetes who is admitted for cellulitis of his penis. #Cellulites with possible early abscess formation - patient given Clindamycin and Vanc in ED - past hx of ESBL in buttock wound abscess - Discussed with ID, patient needs broad and gram negative coverage, will give Meropenem - ordered blood and urine culture - f/u HIV and STD screen - patient evaluated by Dr. Diaz, will watch patient on abx as of now if swelling does not decrease patient will need a procedure - patient able to urinate on his own, consider park if this changes #DM - patient needs tight glycemic control - f/u A1C - SS with BGM's - consider levemir as an outpatient DVT PPX - lovenox 40 sq daily #FEN - received 3L NS in ED - diabetic diet Dispo: monitor on med surg Visit type - Emergency Visit Emergency Visit: Yes ED Registration Date: 06/02/19 Care time: The patient presented to the Emergency Department on the above date and was hospitalized for further evaluation of their emergent condition. - New Patient This patient is new to me today: Yes Date on this admission: 06/04/19 - Critical Care Critical Care patient: No ATTENDING PHYSICIAN STATEMENT I saw and evaluated the patient. I reviewed the resident's note and discussed the case with the resident. I agree with the resident's findings and plan as documented. SUBJECTIVE: OBJECTIVE: ASSESSMENT AND PLAN:
[2019-06-02] MEDS ORDERED: ENOXAPARIN NA (PORCINE) 40 MG/0.4 ML DISP.SYRIN SQ ONE (10:38)
[2019-06-02] MEDS: ENOXAPARIN NA (PORCINE) 40 MG/0.4 ML DISP.SYRIN SQ SCH (10:44)
--- NOTE | 2019-06-02 11:28 | EKG ---
Test Reason : Blood Pressure : / mmHG Vent. Rate : 092 BPM Atrial Rate : 092 BPM P-R Int : 136 ms QRS Dur : 078 ms QT Int : 356 ms P-R-T Axes : 051 023 021 degrees QTc Int : 440 ms NORMAL SINUS RHYTHM NONSPECIFIC ST AND T WAVE ABNORMALITY EARLY REPOLARIZATION WHEN COMPARED WITH ECG OF 10-DEC-2018 19:56, NO SIGNIFICANT CHANGE WAS FOUND Confirmed by ELHAM ZAMUDIO MD ([id number]) on 06/02/2019 11:28:31 AM Referred By: Confirmed By:ELHAM ZAMUDIO MD
[2019-06-02] MEDS ORDERED: MEROPENEM 1 GM in DEXTROSE 5%-WATER 100 ML IVPB ONE (11:30)
[2019-06-02] MEDS ORDERED: MEROPENEM 1 GM VIAL (RESTRICTED TO ID) IVPB ONE (12:11)
[2019-06-02] MEDS ORDERED: INSULIN (NOVOLOG) ASPART 100 UNITS/ML 10ML VIAL ONE (12:31)
[2019-06-02] MEDS: MORPHINE SULFATE 2 MG/ML VIAL IVPUSH PRN ×2 (12:41→18:47)
[2019-06-02] MEDS: INSULIN SLIDING SCALE (NOVOLOG) 1 VIAL SQ SCH ×2 (12:41→17:01)
--- NOTE | 2019-06-02 12:43 | PN ---
Progress Note (short form) - Note Progress Note: ID consult dictated imp/reccd 23 yo man with DM for several years history of recurrent abscesses reports 4 in the last 3 years-had a periumbilical abscess in november 2018 that grew ecoli esbl! now with a 5 day history of penile pain he had a bump on the posterior shaft of the penis, came to ed 2 days later 05/30 and prescribed kflex and bactrim and warm compresses he has been taking the antibiotics and doing the compresses with worsenng erythema and swelling and pain of the penis no fevers or chills seen by urology just returned form sonogram penile cellulitis, /?abscess at base of penis- tender induration noted, no fluctuance vanco/meropenem blood cultures urine culture close urologic f/u urine for gc and chlamydia as well po diflucan diabetes- diabetic teaching, glucose control, hgb aic hiv testing Problem List - Problems (1) Abscess of shaft of penis Code(s): N48.29 - OTHER INFLAMMATORY DISORDERS OF PENIS (2) Cellulitis of shaft of penis Code(s): N48.22 - CELLULITIS OF CORPUS CAVERNOSUM AND PENIS (3) Uncontrolled diabetes mellitus Code(s): E11.65 - TYPE 2 DIABETES MELLITUS WITH HYPERGLYCEMIA Qualifiers: Diabetes mellitus type: type 2 Glycemic state: with hyperglycemia Qualified Code(s): E11.65 - Type 2 diabetes mellitus with hyperglycemia
--- NOTE | 2019-06-02 13:51 | CONS ---
DATE OF CONSULTATION: 06/02/2019 This is a 23-year-old man with past medical history of diabetes, which he says he has had for about 3 years. He is followed by Dr. Key. He reports history of recurrent abscesses; this is the 4th one in the last 3 years. He was seen in the emergency room on May 30, where he was noted to have a 2-cm induration at the posterior base of his penis. He was prescribed Keflex and Bactrim and told to use some warm compresses. The entire area became worse. He had worsening swelling, he had worsening pain, and he came to the emergency room. He denies any fevers or chills. He has been sexually active. He had sex once after this started. He reports he was tested for HIV several years ago and is negative. PAST MEDICAL HISTORY: Notable for diabetes, which he says he has had for several years. He has had in the past, in June 2018, a perirectal abscess. He, most recently in November 2018, was hospitalized with periumbilical pain and he was found to have a periumbilical abscess that was drained. The culture at that time grew Escherichia coli and alpha-hemolytic strep. No other culture data is available. He has had no surgery. He is allergic to PEANUTS. He has been taking the Bactrim and Keflex as prescribed and is on insulin. His demurrage clerk is Dr. Key. FAMILY HISTORY: Notable for diabetes in his father and his grandfather. SOCIAL HISTORY: He is unemployed. He smokes marijuana. He does not smoke cigarettes. He denies IV drug use. REVIEW OF SYSTEMS: He denies fevers, chills, nausea, vomiting, diarrhea. Notable for difficulty urinating due to the edema. PHYSICAL EXAMINATION: General: He is awake and alert. Vital Signs: Temperature is 98.3, pulse is 89, blood pressure 124/73, respiratory rate is 20. He is saturating 95% on room air. HEENT: He is normocephalic. His eyes are anicteric. Neck: Supple. Lungs: Clear to auscultation. Heart: Regular rate and rhythm. Abdomen: Soft, nontender. Genitalia: He has diffuse swelling of the penis. He has some induration at the posterior base. His scrotum is reddened, but he has no fluctuance or crepitus. He has no perineal involvement and he has no inguinal adenopathy. LABORATORIES: Notable for a white count of 13.3, hemoglobin 14.5, platelets of 197. His BUN is 10, creatinine 1.1, glucose was 587. Urinalysis is negative. Cultures have not been sent and have been ordered. CT scan of the abdomen and pelvis and ultrasound are pending. SUMMARY: This is a young man with: 1. Penile cellulitis, questionable abscess of the base of the penis where there is some tenderness and induration, but no fluctuance. Imaging is all pending. He has been seen by Urology, who is electing to observe him on IV antibiotics. We will treat him with vancomycin and meropenem. He needs isolation while in the hospital for his prior history of ESBL Escherichia coli. Would obtain cultures, blood and urine, with close urologic followup. Wound send a urine for GC and chlamydia as well. 2. Diabetes, out of control. He needs diabetic teaching and glucose control. Would check a hemoglobin A1c. 3. He has consented to HIV testing. Further recommendations to follow. MANNY DICKEY M.D. [id number]
--- NOTE | 2019-06-02 14:32 | PN ---
Teaching Attending Note Name of Resident: Carmita Hinson ATTENDING PHYSICIAN STATEMENT I saw and evaluated the patient. I reviewed the resident's note and discussed the case with the resident. I agree with the resident's findings and plan as documented. SUBJECTIVE:23yo M with uncontrolled DM and recurring abscesses presenting with penile pain 3 days. pain started at base of penis with some swelling came to ER and was given bactrim and keflex which he has been taking with no improvement. noted his entire penis started to swell last night which prompted him to the ER. is able to urinate but has some difficulty initiating stream due to pain. has had multiple buttock abscess with +ESBL in the past. states he uses clippers to trim his genital hair, never shaves. denies cutting himself. denies Cp, SOB, fever, chills, N/v/C/D, penile discharge, hematuria. has never been treated for STD in the past sexual active with 1 female for the past year. does not use protection OBJECTIVE: Last Vital Signs Temp Pulse Resp BP Pulse Ox 98.3 F 89 20 124/73 95 06/02/19 12:35 06/02/19 12:35 06/02/19 12:35 06/02/19 12:35 06/02/19 12:35 general NAD Genital shaft of penis swollen and tender, no difficulty in retracting forskin. no active penile drainage or smegma or phimosis,. tenderness R side of penis at base, +LN. no fluctuant area. not warm but entire penis is tender ASSESSMENT AND PLAN: 23yo M with PMH uncontrolled DM and recurring abscess present with swelling of his penis and found to be septic with cellulitis. 1. Sepsis due to penile cellulitis- concern for underlying abscess formation. CT done but without contrast (states he has allergy with throat tightness) not showing any definitive abscess on my read. u/s pending to further evaluate. started on clinda and vanco in the ER but think broader coverage necessary given previous cx. Consult urology and ID for further recommendations. may need surgical debridement if does not improve. contact isolation for hx of ESBL. cont IVF and pain control. check HIV and STD 2. Hyperglycemia- due to uncontrolled DM. check A1c. will likely require insulin on d/c. currently only doing iss and metformin. start levemir 10 units and titrate as needed to optimize control. counselled on importance of tight glycemic control 3. DVT ppx- lovenox
[2019-06-02] MEDS ORDERED: FLUCONAZOLE 100 MG TABLET (UD) ONE ×3 (14:45→15:24)
[2019-06-02] MEDS: FLUCONAZOLE 100 MG TABLET (UD) PO SCH (15:39)
[2019-06-02] MEDS ORDERED: IBUPROFEN 400 MG TABLET (FP) PO ONE ×2 (18:20→18:42)
[2019-06-02] MEDS ORDERED: VANCOMYCIN 500 MG VIAL (RESTRICTED TO ID ONLY) ONE (18:34)
[2019-06-02] MEDS: VANCOMYCIN HCL 1,500 MG in DEXTROSE 5%-WATER - 500 ML IVPB SCH (18:41)
--- NOTE | 2019-06-02 20:03 | PN ---
Progress Note (short form) - Note Progress Note: Received a notice stating that patient was concerned that the coloration on his penis was darkening. Evaluated patient at bedside. Physical: : swelling of shaft of penis going from the base to the head with dark pink/ purple-citlali coloration, small area of black/blue-citlali ecchymosis at base of penis , pain on palpation. able to retract foreskin. tenderness to palpation at base of penis Patient was able to urinate with mild pain. Urine color is dark yellow, no red tinge. Contacted Dr. Diaz. Recommended to check lactic acid levels and monitor for the next 24 hours, nothing to do currently. Will update Dr. Phelan with changes to patient's condition -- Patient reevaluated around 0145 as he was complaining of worsening pain and discoloration On reexamination of patient, ecchymosis at base of penis now slightly larger and more black/blue-citlali. forming a head at middle with small amount of clear/ yellow draining fluid. Swelling looks mildly increased at base compared to previous exam. Otherwise no change. Lactic Acid - 1 BGM fluctuating from 500s down to 100s and back up to 400s. Contacted Dr. Diaz again and explained findings. Told nothing to do at this time, will assess the patient in the morning. Expressed need for better control of sugars. Contacted Nurse Awad and told to give Insulin as per sliding scale. As per nurse, patient was seen eating chips and other food.
[2019-06-02] MEDS ORDERED: MORPHINE SULFATE 2 MG/ML VIAL IVPUSH ONE (21:30)
[2019-06-02] MEDS: MEROPENEM 1 GM in DEXTROSE 5%-WATER 100 ML IVPB SCH (21:43)
[2019-06-02] MEDS ORDERED: INSULIN (LEVEMIR) 100 UNITS/ML UNITS SQ SCH (22:00)
[2019-06-03] MEDS ORDERED: MORPHINE SULFATE 2 MG/ML VIAL ONE (00:53)
[2019-06-03] MEDS: MORPHINE SULFATE 2 MG/ML VIAL IVPUSH PRN ×2 (01:18→22:18)
[2019-06-03] MEDS: MEROPENEM 1 GM in DEXTROSE 5%-WATER 100 ML IVPB SCH ×3 (02:00→17:54)
[2019-06-03] MEDS ORDERED: INSULIN (LEVEMIR) 100 UNITS/ML UNITS SQ ONE (03:23)
[2019-06-03] MEDS ORDERED: MEROPENEM 1 GM VIAL (RESTRICTED TO ID) IVPB ONE ×3 (04:14→17:52)
[2019-06-03 05:37] LABS: BASO % 1.2 % (0-2.0); HEMATOCRIT 37.4 % (35.4-49); HEMOGLOBIN 13.1 GM/dL (11.7-16.9); LYMPH % 15.6 % (8-40); MCH 33.3 pg (25.7-33.7); MCHC 34.9 g/dl (32.0-35.9); MEAN CELL VOLUME 95.6 fl (80-96); MONO % 6.9 % (3.8-10.2); NEUT % 75.3 % (42.8-82.8); PLATELET COUNT 188 K/MM3 (134-434); RBC 3.92 M/mm3 (4.00-5.60); RDW 11.8 % (11.9-15.9)
[2019-06-03 06:11] LABS: BLOOD UREA NITROGEN 7.7 mg/dL (7-18)
[2019-06-03 06:12] LABS: ALBUMIN 3.6 g/dl (3.4-5.0); BILIRUBIN,TOTAL 0.9 mg/dL (0.2-1); CALCIUM 8.9 mg/dL (8.5-10.1); MAGNESIUM 1.8 mg/dL (1.8-2.4); PHOSPHOROUS 2.7 mg/dL (2.5-4.9); POTASSIUM 3.9 mmol/L (3.5-5.1); TOT PROT 6.8 g/dl (6.4-8.2)
[2019-06-03] MEDS ORDERED: morphine SULFATE 4 MG/ML VIAL ONE (06:24)
--- NOTE | 2019-06-03 07:44 | PN ---
Progress Note (short form) - Note Progress Note: afebrile penile swelling increased now with area of ecchymosis/fluctuance on rt side of foreskin near the penoscrotal junction will plan for incision/drainge of abscess, excision of cellultic area of foreskin, will also need cysto with poss suprapubic tube placement if urethral involvement or stricture is present Pt understands and agrees Problem List - Problems (1) Cellulitis of shaft of penis Code(s): N48.22 - CELLULITIS OF CORPUS CAVERNOSUM AND PENIS
[2019-06-03] MEDS: VANCOMYCIN HCL 1,500 MG in DEXTROSE 5%-WATER - 500 ML IVPB SCH ×3 (07:46→21:42)
[2019-06-03] MEDS: INSULIN SLIDING SCALE (NOVOLOG) 1 VIAL SQ SCH ×3 (08:30→17:10)
--- NOTE | 2019-06-03 09:35 | PN ---
Progress Note (short form) - Note Progress Note: urology note reviewed for surgery with debridement today Vital Signs Period Temp Pulse Resp BP Sys/Lennon Pulse Ox Last 24 Hr 97.9 F-98.6 F 86-92 18-20 117-124/68-73 95-96 cor-rrr lungs clear abd soft,nt penis remains swollen, erythema and edema with area of erythema/?flucutance noted- erythema unchanged from yesterday scrotum nontender no crepitus ext no edema CBC, BMP 06/03/19 05:20 06/03/19 05:20 cultures pending ua negative a/p penile cellulitis, /?abscess at base of penis- for drainage today vanco/meropenem /clindamycin please sent operative cultures diflucan diabetes- diabetic teaching, glucose control, hgb aic hiv
[2019-06-03] MEDS: FLUCONAZOLE 100 MG TABLET (UD) PO SCH (10:00)
[2019-06-03] MEDS: ENOXAPARIN NA (PORCINE) 40 MG/0.4 ML DISP.SYRIN SQ SCH (10:00)
[2019-06-03] MEDS: CLINDAMYCIN 900 MG PREMIX IVPB 900 MG/50 ML BAG IVPB SCH ×2 (10:15→17:06)
[2019-06-03] MEDS ORDERED: ONDANSETRON 4 MG/2 ML VIAL IVPUSH PRN (11:15)
[2019-06-03] MEDS ORDERED: LACTATED RINGERS SOLUTION 1,000 ML IV SCH (11:15)
[2019-06-03] MEDS ORDERED: LIDOCAINE HCL/PF 2% SDV 5ML VIAL ONE (11:47)
[2019-06-03] MEDS ORDERED: SUCCINYLCHOLINE CHLORIDE 200 MG/10 ML SYRINGE ONE (11:47)
[2019-06-03] MEDS ORDERED: PROPOFOL 20 ML ONE ×4 (11:47→14:15)
[2019-06-03] MEDS ORDERED: BACITRACIN 50,000 UNITS VIAL TP ONE (12:23)
[2019-06-03] MEDS ORDERED: MIDAZOLAM HCL 2 MG/2 ML SINGLE DOSE VIAL ONE (12:25)
--- NOTE | 2019-06-03 13:19 | OP ---
Operative Note - Note: Operative Date: 06/03/19 Pre-Operative Diagnosis: Penile abscess Operation: Cystoscopy. Incision,drainage and debredment of penile abscess Findings: 5 cm area of necrotic tissue w apprx 40 cc on fluid draining normal appearing urethra Post-Operative Diagnosis: Same as Pre-op Anesthesia: General Specimens Removed: necrotic tissue Estimated Blood Loss (mls): 10 Operative Report Dictated: Yes
[2019-06-03] MEDS ORDERED: INSULIN (NOVOLOG) ASPART 100 UNITS/ML 10ML VIAL ONE (13:46)
--- NOTE | 2019-06-03 13:58 | OP ---
DATE OF OPERATION: 06/03/2019 PREOPERATIVE DIAGNOSIS: Penile abscess. POSTOPERATIVE DIAGNOSIS: Penile abscess. PROCEDURE: Cystoscopy, incision and debridement of penile abscess. HISTORY: This is a 23-year-old gentleman with a history of diabetes who after several days of tenderness and pain presented to the ER over the weekend. Patient was given intravenous antibiotics and continued to have pain and what appeared to be developing abscess at the base of the penis at the shaft and penoscrotal junction with induration into the scrotum and entire predominantly right side of the penis and into the left side as well. Options were given to the patient including possible need for suprapubic tube, Souza catheter, and dilation of possible potential stricture as well as possible future procedures after today's procedure. BRIEF OPERATIVE NOTE: Patient brought to the operating room and placed in supine position where general anesthesia was administered. Patient prepped and draped in standard sterile fashion. Time-out was performed. At this time, the cystoscopy was performed. The urethra was normal. There was no evidence of abscess or infection within the urethra or into the bladder. Bladder was, otherwise, unremarkable. At this time, the necrotic tissue was excised, and approximately 40 mL of purulent material was drained, and copious amounts of irrigation was used to irrigate the wound. Irrigation contained bacitracin antibiotic. After debriding multiple areas of necrotic tissue, the remaining tissue appeared to be red, viable, and slightly oozing blood. Using approximately four 3-0 Monocryls in an interrupted fashion, the skin was approximated. Approximately a 2-cm area inferiorly was left open purposely to allow potential drainage of future purulent material. A dressing was then applied. The patient was brought to recovery room in stable and satisfactory condition. Allan [id number]
[2019-06-03] MEDS ORDERED: INSULIN (LEVEMIR) 100 UNITS/ML UNITS SQ SCH (17:08)
--- NOTE | 2019-06-03 17:09 | PN ---
Teaching Attending Note Name of Resident: Amadeo Claire ATTENDING PHYSICIAN STATEMENT I saw and evaluated the patient. I reviewed the resident's note and discussed the case with the resident. I agree with the resident's findings and plan as documented. SUBJECTIVE: much improvement since surgery. states pain is controlled. denies CP , SOB, fever, chills, N/V/C/D OBJECTIVE: Last Vital Signs Temp Pulse Resp BP Pulse Ox 98.5 F 84 20 117/64 97 06/03/19 16:00 06/03/19 16:00 06/03/19 16:00 06/03/19 16:00 06/03/19 16:00 general NAD Genital shaft of penis swollen and tender, laceration on dorsal aspect with bandage with some dried blood. R inguinal area minimally tender. no erythema. ASSESSMENT AND PLAN: 23yo M with PMH uncontrolled DM and recurring abscess present with swelling of his penis and found to be septic with cellulitis. 1. Sepsis due to penile cellulitis and abscess- s/p I&D by urology today. Cx sent to [place]. on Meropenem/Clinda/vanco/fluconazole. will F/u cx report. urinating freely without difficultly. Contact isolation for hx of ESBL. HIV and STD pending 2. Hyperglycemia- due to uncontrolled DM. A1c 13.4. states he was supposed to be on levemir 45 units but was not compliant. will increase levemir to 20 units. titrate as needed to optimize control. dietary consult 3. DVT ppx- lovenox
--- NOTE | 2019-06-03 17:13 | PN ---
Physical Exam: SUBJECTIVE: Patient seen and examined. Endorsing increased penile swelling but less pain. Pain is localized to Right-side of penile base OBJECTIVE: Vital Signs Period Temp Pulse Resp BP Sys/Lennon Pulse Ox Last 24 Hr 97.9 F-99 F 79-93 12-20 110-129/61-81 97-100 GENERAL: Awake, alert, in no acute distress. HEAD: Normal with no signs of trauma. LUNGS: Breath sounds equal, clear to auscultation bilaterally. No wheezes, and no crackles. No accessory muscle use. HEART: Regular rate and rhythm, normal S1 and S2 without murmur, rub or gallop. ABDOMEN: Soft, nontender, not distended, no guarding, no rebound, no masses. : erythematous swelling of the penile shaft with longitudinal area of ecchymotic superficial ulcerative on Right-side of shaft, nonTTP of shaft. Left epipydidemal swelling. Right penile base of shaft nodule with tenderness MUSCULOSKELETAL: Normal range of motion at all joints. LOWER EXTREMITIES: 2+ pulses, warm, well-perfused. No calf tenderness. No peripheral edema. SKIN: Warm, dry, normal turgor Laboratory Results - last 24 hr 06/02/19 06/02/19 06/03/19 13:45 16:53 01:06 WBC RBC Hgb Hct MCV MCH MCHC RDW Plt Count MPV Absolute Neuts (auto) Neutrophils % Lymphocytes % Monocytes % Eosinophils % Basophils % Nucleated RBC % Sodium Potassium Chloride Carbon Dioxide Anion Gap BUN Creatinine Est GFR (CKD-EPI)AfAm Est GFR (CKD-EPI)NonAf POC Glucometer 187 462 Random Glucose Lactic Acid Calcium Phosphorus Magnesium Total Bilirubin AST ALT Alkaline Phosphatase Total Protein Albumin HIV 1&2 Ag/Ab, 4th Gen Non reactive 06/03/19 06/03/19 06/03/19 01:16 05:20 05:20 WBC 10.0 RBC 3.92 L Hgb 13.1 Hct 37.4 MCV 95.6 MCH 33.3 MCHC 34.9 RDW 11.8 L Plt Count 188 MPV 11.0 Absolute Neuts (auto) 7.5 Neutrophils % 75.3 Lymphocytes % 15.6 D Monocytes % 6.9 Eosinophils % 1.0 Basophils % 1.2 Nucleated RBC % 0 Sodium 133 L Potassium 3.9 Chloride 97 L Carbon Dioxide 27 Anion Gap 9 BUN 7.7 Creatinine 1.0 Est GFR (CKD-EPI)AfAm 120.70 Est GFR (CKD-EPI)NonAf 104.14 POC Glucometer Random Glucose 483 H* Lactic Acid 1.0 Calcium 8.9 Phosphorus 2.7 Magnesium 1.8 Total Bilirubin 0.9 AST 8 L ALT 14 Alkaline Phosphatase 143 H Total Protein 6.8 Albumin 3.6 HIV 1&2 Ag/Ab, 4th Gen 06/03/19 06/03/19 06/03/19 08:02 10:08 13:26 WBC RBC Hgb Hct MCV MCH MCHC RDW Plt Count MPV Absolute Neuts (auto) Neutrophils % Lymphocytes % Monocytes % Eosinophils % Basophils % Nucleated RBC % Sodium Potassium Chloride Carbon Dioxide Anion Gap BUN Creatinine Est GFR (CKD-EPI)AfAm Est GFR (CKD-EPI)NonAf POC Glucometer 438 342 269 Random Glucose Lactic Acid Calcium Phosphorus Magnesium Total Bilirubin AST ALT Alkaline Phosphatase Total Protein Albumin HIV 1&2 Ag/Ab, 4th Gen Active Medications Generic Name Dose Route Start Last Admin Trade Name Freq PRN Reason Stop Dose Admin Acetaminophen 650 mg 06/02/19 09:30 Tylenol - PO Q4H PRN PAIN LEVEL 4 - 6 Enoxaparin Sodium 40 mg 06/02/19 10:00 06/03/19 10:00 Lovenox - SQ 40 mg DAILY VERO Administration Fentanyl 50 mcg 06/03/19 11:15 06/03/19 14:00 Sublimaze Injection - IVPUSH 50 mcg [id number] PRN Administration PAIN-PACU ORDER X 4 DOSES ONLY Fluconazole 100 mg 06/02/19 14:00 06/03/19 10:00 Diflucan - PO Not Given DAILY VERO Vancomycin HCl 1,500 mg/ 500 mls @ 250 mls/hr 06/02/19 18:00 06/03/19 07:46 Dextrose IVPB 250 mls/hr Q12H VERO Administration Protocol Meropenem 1 gm/ Dextrose 100 mls @ 200 mls/hr 06/02/19 18:00 06/03/19 11:00 IVPB 200 mls/hr Q8H-IV VERO Administration Clindamycin Phosphate 900 mg in 50 mls @ 100 mls/hr 06/03/19 10:00 06/03/19 10:15 Cleocin 900 Mg Premix Ivpb - IVPB 100 mls/hr Q8H-IV VERO Administration Protocol Lactated Ringer's 1,000 mls @ 75 mls/hr 06/03/19 11:15 Lactated Ringers Solution IV ASDIR VERO Insulin Aspart 1 vial 06/02/19 11:00 06/03/19 13:45 Novolog Vial Sliding Scale - SQ 6 units TIDAC VERO Administration Protocol Insulin Detemir 10 units 06/02/19 22:00 06/03/19 00:00 Levemir Vial SQ 10 unit HS VERO Administration Morphine Sulfate 2 mg 06/02/19 09:30 06/03/19 01:18 Morphine Sulfate IVPUSH 2 mg Q4H PRN Administration PAIN LEVEL 7 - 10 Ondansetron HCl 4 mg 06/03/19 11:15 Zofran Injection IVPUSH Q6H PRN NAUSEA AND/OR VOMITING Vital Signs Temp 98.5 F 06/03/19 16:00 Pulse 84 06/03/19 16:00 Resp 20 06/03/19 16:00 BP 117/64 06/03/19 16:00 Pulse Ox 97 06/03/19 16:00 Intake & Output 06/02/19 06/03/19 06/03/19 23:59 11:59 23:59 Intake Total 1000 Balance 1000 Weight 92.986 kg Intake: IV 1000 Other: Voiding Method Urinal Height 5 ft 10 in Body Mass Index (BMI) 29.4 Weight Measurement Method Standing Scale ASSESSMENT/PLAN: Patient is a 23 y/o male with a past medical history of diabetes who is admitted for cellulitis of his penis. #Cellulites with possible early abscess formation > CT A/P(06/02/19): stranding/edema of Right groin w/ prominent LN w/ overlying skin thickening > US testicles(06/02/19): b/l hydrocele, cannot r/o epididymitits - ID consult: --vancomycin, meropenem, clindamycin --fluconazole - f/u blood and urine culture - f/u HIV and STD screen - Uro consult(Dr. Diaz) --POD#0 I&D w/ 40cc drained -pain control: morphine 2mg q4h -fu operative wound culture -fu BCX, UCX -fu chlamydia, gonhorrhea #DM > HbA1c ~13.4 - ISS with BGM's - levemir 20U QHS DVT PPX - lovenox 40 sq daily #FEN - diabetic diet Visit type - Emergency Visit Emergency Visit: No - New Patient This patient is new to me today: No - Critical Care Critical Care patient: No ATTENDING PHYSICIAN STATEMENT I saw and evaluated the patient. I reviewed the resident's note and discussed the case with the resident. I agree with the resident's findings and plan as documented. SUBJECTIVE: OBJECTIVE: ASSESSMENT AND PLAN:
[2019-06-03] MEDS ORDERED: DEXTROSE 5%-WATER 100 ML IVPB ONE (17:52)
[2019-06-04] MEDS ORDERED: DEXTROSE 5%-WATER 100 ML IVPB ONE ×3 (00:03→17:15)
[2019-06-04] MEDS ORDERED: MEROPENEM 1 GM VIAL (RESTRICTED TO ID) IVPB ONE ×3 (00:03→17:15)
[2019-06-04] MEDS: CLINDAMYCIN 900 MG PREMIX IVPB 900 MG/50 ML BAG IVPB SCH ×3 (01:32→18:58)
[2019-06-04] MEDS: MEROPENEM 1 GM in DEXTROSE 5%-WATER 100 ML IVPB SCH ×3 (01:51→19:25)
[2019-06-04] MEDS: MORPHINE SULFATE 2 MG/ML VIAL IVPUSH PRN ×4 (01:52→20:49)
[2019-06-04] MEDS: INSULIN SLIDING SCALE (NOVOLOG) 1 VIAL SQ SCH ×3 (06:25→17:41)
[2019-06-04] MEDS: VANCOMYCIN HCL 1,500 MG in DEXTROSE 5%-WATER - 500 ML IVPB SCH ×3 (07:42→18:34)
--- NOTE | 2019-06-04 09:41 | PN ---
Progres Note Chief Complaint: Feeling better. Moderate drainage from open area of incision - Objective Vital Signs: Vital Signs Temperature 99.0 F 06/04/19 05:55 Pulse Rate 88 06/04/19 05:55 Respiratory Rate 20 06/04/19 05:55 Blood Pressure 117/65 06/04/19 05:55 O2 Sat by Pulse Oximetry (%) 97 06/03/19 16:00 Labs/Additional Data: CBC, BMP 06/03/19 05:20 06/03/19 05:20 Problem List - Problems (1) Penile abscess Assessment/Plan: S/P I and d of penile abscess Draining at open 2 cm area of wound Cont IV abx as per ID W to Dry dressing changes Code(s): N48.21 - ABSCESS OF CORPUS CAVERNOSUM AND PENIS
[2019-06-04] MEDS: ENOXAPARIN NA (PORCINE) 40 MG/0.4 ML DISP.SYRIN SQ SCH (10:44)
[2019-06-04] MEDS ORDERED: PT OWN MED DRAWER 7, Y5N ONE (10:52)
[2019-06-04] MEDS: FLUCONAZOLE 100 MG TABLET (UD) PO SCH (10:53)
--- NOTE | 2019-06-04 15:02 | PN ---
Teaching Attending Note Name of Resident: Amadeo Claire ATTENDING PHYSICIAN STATEMENT I saw and evaluated the patient. I reviewed the resident's note and discussed the case with the resident. I agree with the resident's findings and plan as documented. SUBJECTIVE: OBJECTIVE: Vital Signs Period Temp Pulse Resp BP Sys/Lennon Pulse Ox Last 24 Hr 98.2 F-99.0 F 80-89 14-20 116-137/57-78 97-99 Laboratory Results - last 24 hr 06/03/19 06/03/19 06/04/19 17:04 21:47 06:21 POC Glucometer 184 318 326 06/04/19 11:42 POC Glucometer 157 Current Medications Generic Name Dose Route Start Last Admin Trade Name Freq PRN Reason Stop Dose Admin Acetaminophen 650 mg 06/02/19 09:30 Tylenol - PO Q4H PRN PAIN LEVEL 4 - 6 Enoxaparin Sodium 40 mg 06/02/19 10:00 06/04/19 10:44 Lovenox - SQ 40 mg DAILY VERO Administration Fentanyl 50 mcg 06/03/19 11:15 06/03/19 14:00 Sublimaze Injection - IVPUSH 50 mcg [id number] PRN Administration PAIN-PACU ORDER X 4 DOSES ONLY Fluconazole 100 mg 06/02/19 14:00 06/04/19 10:53 Diflucan - PO 100 mg DAILY VERO Administration Vancomycin HCl 1,500 mg/ 500 mls @ 250 mls/hr 06/02/19 18:00 06/04/19 07:42 Dextrose IVPB Not Given Q12H [facility] Protocol Meropenem 1 gm/ Dextrose 100 mls @ 200 mls/hr 06/02/19 18:00 06/04/19 10:50 IVPB 200 mls/hr Q8H-IV VERO Administration Clindamycin Phosphate 900 mg in 50 mls @ 100 mls/hr 06/03/19 10:00 06/04/19 10:46 Cleocin 900 Mg Premix Ivpb - IVPB 100 mls/hr Q8H-IV VERO Administration Protocol Insulin Aspart 1 vial 06/02/19 11:00 06/04/19 11:46 Novolog Vial Sliding Scale - SQ Not Given TIDAC [facility] Protocol Insulin Detemir 25 units 06/04/19 19:00 Levemir Vial SQ DAILY@1900 [facility] Morphine Sulfate 2 mg 06/02/19 09:30 06/04/19 10:41 Morphine Sulfate IVPUSH 2 mg Q4H PRN Administration PAIN LEVEL 7 - 10 Ondansetron HCl 4 mg 06/03/19 11:15 Zofran Injection IVPUSH Q6H PRN NAUSEA AND/OR VOMITING ASSESSMENT AND PLAN: This is a 23 year old man with a history of uncontrolled type 2 DM, multiple abscesses who presented to the ED with swelling of his penis. 1. Sepsis (leukocytosis, tachycardia) secondary to cellulitis and abscess of penis - s/p I&D 06/03 - Pain control - Wound cultures negative after 24 hours - Blood cultures negative after 48 hours - Continue meropenem, clindamycin, vancomycin, fluconazole - HIV negative, RPR negative 2. Uncontrolled type 2 DM - HbA1c 13.4 - Levemir increased - Continue Novolog sliding scale 3. DVT prophylaxis - On Lovenox
--- NOTE | 2019-06-04 15:34 | PN ---
Physical Exam: SUBJECTIVE: Patient seen and examined. Endorses 7/10 penile pain. States that pain has improved overall. Able to urinate w/o issues OBJECTIVE: Vital Signs Period Temp Pulse Resp BP Sys/Lennon Pulse Ox Last 24 Hr 98.2 F-99.0 F 81-89 18-20 117-137/57-73 97-97 GENERAL: Awake, alert, in no acute distress. HEAD: Normal with no signs of trauma. LUNGS: Breath sounds equal, clear to auscultation bilaterally. No wheezes, and no crackles. No accessory muscle use. HEART: Regular rate and rhythm, normal S1 and S2 without murmur, rub or gallop. ABDOMEN: Soft, nontender, not distended, no guarding, no rebound, no masses. : swelling of the penile shaft with semi-circumferential incision of penile base, loosely approximated, ss drainage, nonTTP of shaft. Indurated penile base. Left epipydidemal swelling reduced. MUSCULOSKELETAL: Normal range of motion at all joints. LOWER EXTREMITIES: 2+ pulses, warm, well-perfused. No calf tenderness. No peripheral edema. SKIN: Warm, dry, normal turgor Laboratory Results - last 24 hr 06/03/19 06/03/19 06/04/19 17:04 21:47 06:21 POC Glucometer 184 318 326 06/04/19 11:42 POC Glucometer 157 Active Medications Generic Name Dose Route Start Last Admin Trade Name Freq PRN Reason Stop Dose Admin Acetaminophen 650 mg 06/02/19 09:30 Tylenol - PO Q4H PRN PAIN LEVEL 4 - 6 Enoxaparin Sodium 40 mg 06/02/19 10:00 06/04/19 10:44 Lovenox - SQ 40 mg DAILY VERO Administration Fentanyl 50 mcg 06/03/19 11:15 06/03/19 14:00 Sublimaze Injection - IVPUSH 50 mcg [id number] PRN Administration PAIN-PACU ORDER X 4 DOSES ONLY Fluconazole 100 mg 06/02/19 14:00 06/04/19 10:53 Diflucan - PO 100 mg DAILY VERO Administration Vancomycin HCl 1,500 mg/ 500 mls @ 250 mls/hr 06/02/19 18:00 06/04/19 07:42 Dextrose IVPB Not Given Q12H [facility] Protocol Meropenem 1 gm/ Dextrose 100 mls @ 200 mls/hr 06/02/19 18:00 06/04/19 10:50 IVPB 200 mls/hr Q8H-IV VERO Administration Clindamycin Phosphate 900 mg in 50 mls @ 100 mls/hr 06/03/19 10:00 06/04/19 10:46 Cleocin 900 Mg Premix Ivpb - IVPB 100 mls/hr Q8H-IV VERO Administration Protocol Insulin Aspart 1 vial 06/02/19 11:00 06/04/19 11:46 Novolog Vial Sliding Scale - SQ Not Given TIDAC [facility] Protocol Insulin Detemir 25 units 06/04/19 19:00 Levemir Vial SQ DAILY@1900 [facility] Morphine Sulfate 2 mg 06/02/19 09:30 06/04/19 10:41 Morphine Sulfate IVPUSH 2 mg Q4H PRN Administration PAIN LEVEL 7 - 10 Ondansetron HCl 4 mg 06/03/19 11:15 Zofran Injection IVPUSH Q6H PRN NAUSEA AND/OR VOMITING Vital Signs Temp 98.4 F 06/04/19 11:00 Pulse 81 06/04/19 11:00 Resp 18 06/04/19 11:00 BP 121/57 L 06/04/19 11:00 Pulse Ox 97 06/04/19 12:00 Intake & Output 06/03/19 06/04/19 06/04/19 23:59 11:59 23:59 Intake Total 1550 600 330 Output Total 700 800 Balance 850 -200 330 Weight 92.986 kg Intake: IV 1000 IVPB 150 600 Oral 400 330 Output: Urine 700 800 Void 700 800 Other: Voiding Method Urinal Urinal Urinal # Unmeasured Voids Void 2 Bowel Movement No Height 5 ft 10 in Body Mass Index (BMI) 29.4 Weight Measurement Method Standing Scale ASSESSMENT/PLAN: Patient is a 23 y/o male with a past medical history of diabetes who is admitted for cellulitis of his penis. #Cellulites with possible early abscess formation > CT A/P(06/02/19): stranding/edema of Right groin w/ prominent LN w/ overlying skin thickening > US testicles(06/02/19): b/l hydrocele, cannot r/o epididymitits - ID consult: --vancomycin, meropenem, clindamycin --fluconazole - f/u blood and urine culture - f/u HIV and STD screen - Uro consult(Dr. Diaz) --POD#1 I&D w/ 40cc drained -pain control: morphine 2mg q4h -fu operative wound culture -- NGTD -fu BCX, UCX -fu chlamydia, gonhorrhea #DM > HbA1c ~13.4 - ISS with BGM's - increased levemir 20--> 25U QHS DVT PPX - lovenox 40 sq daily #FEN - diabetic diet Visit type - Emergency Visit Emergency Visit: No - New Patient This patient is new to me today: No - Critical Care Critical Care patient: No ATTENDING PHYSICIAN STATEMENT I saw and evaluated the patient. I reviewed the resident's note and discussed the case with the resident. I agree with the resident's findings and plan as documented. SUBJECTIVE: OBJECTIVE: ASSESSMENT AND PLAN:
[2019-06-04] MEDS ORDERED: INSULIN (NOVOLOG) ASPART 100 UNITS/ML 10ML VIAL ONE (17:46)
--- NOTE | 2019-06-04 18:40 | PN ---
Progress Note (short form) - Note Progress Note: swelling improved he is able to urinate Vital Signs Period Temp Pulse Resp BP Sys/Lennon Pulse Ox Last 24 Hr 98.2 F-99.0 F 81-89 18-20 117-137/57-73 97-97 cor-rrr lulngs clear abd soft,nt penile swelling much improved, scrotal swelling resolved incison clean and dry ext no edema CBC, BMP 06/03/19 05:20 06/03/19 05:20 Microbiology 06/02/19 13:50 Blood - Peripheral Venous Blood Culture - Preliminary NO GROWTH OBTAINED AFTER 48 HOURS, INCUBATION TO CONTINUE FOR 3 DAYS. 06/02/19 13:45 Blood - Peripheral Venous Blood Culture - Preliminary NO GROWTH OBTAINED AFTER 48 HOURS, INCUBATION TO CONTINUE FOR 3 DAYS. 06/03/19 14:06 Tissue-Other Gram Stain - Final 06/03/19 14:06 Tissue-Other Tissue Culture - Preliminary NO AEROBIC GROWTH, 24 HRS 06/03/19 14:05 Abscess Gram Stain - Final 06/03/19 14:05 Abscess Wound Culture - Preliminary NO GROWTH OBTAINED AFTER 24 HOURS INCUBATION, REINCUBATED. 06/02/19 17:50 Urine - Urine Clean Catch Urine Culture - Final NO GROWTH OBTAINED ua negative a/p penile cellulitis, /?abscess at base of penis- for drainage today vanco/meropenem /clindamycin/diflucan f/u cultures diabetes- diabetic teaching, glucose control, hgb aic hiv
[2019-06-04] MEDS ORDERED: INSULIN (LEVEMIR) 100 UNITS/ML UNITS SQ SCH (19:00)
[2019-06-05] MEDS ORDERED: DEXTROSE 5%-WATER 100 ML IVPB ONE ×2 (02:38→09:25)
[2019-06-05] MEDS ORDERED: MEROPENEM 1 GM VIAL (RESTRICTED TO ID) IVPB ONE ×2 (02:38→09:25)
[2019-06-05] MEDS: CLINDAMYCIN 900 MG PREMIX IVPB 900 MG/50 ML BAG IVPB SCH ×3 (02:48→10:00)
[2019-06-05] MEDS: MEROPENEM 1 GM in DEXTROSE 5%-WATER 100 ML IVPB SCH ×3 (02:49→10:00)
[2019-06-05] MEDS: MORPHINE SULFATE 2 MG/ML VIAL IVPUSH PRN ×2 (02:49→22:11)
[2019-06-05] MEDS: VANCOMYCIN HCL 1,500 MG in DEXTROSE 5%-WATER - 500 ML IVPB SCH (06:01)
[2019-06-05] MEDS: INSULIN SLIDING SCALE (NOVOLOG) 1 VIAL SQ SCH ×3 (06:15→17:39)
[2019-06-05] MEDS ORDERED: PT OWN MED DRAWER 7, Y5N ONE ×3 (09:25→22:36)
[2019-06-05] MEDS: FLUCONAZOLE 100 MG TABLET (UD) PO SCH (09:37)
[2019-06-05] MEDS: ENOXAPARIN NA (PORCINE) 40 MG/0.4 ML DISP.SYRIN SQ SCH (09:37)
[2019-06-05] MEDS: INSULIN (NOVOLOG) ASPART 100 UNITS/ML 10ML VIAL SQ SCH ×2 (11:45→17:40)
[2019-06-05] MEDS ORDERED: INSULIN (LEVEMIR) 100 UNITS/ML UNITS SQ SCH (11:47)
--- NOTE | 2019-06-05 15:20 | PN ---
Teaching Attending Note Name of Resident: Amadeo Claire ATTENDING PHYSICIAN STATEMENT I saw and evaluated the patient. I reviewed the resident's note and discussed the case with the resident. I agree with the resident's findings and plan as documented. SUBJECTIVE: Seen and examined at bedside. Still with pain around penile shaft. Sleeping and wants to rest. No other complaints. OBJECTIVE: Vital Signs Period Temp Pulse Resp BP Sys/Lennon Pulse Ox Last 24 Hr 97.9 F-99.6 F 74-82 19-20 117-133/65-76 97-100 Physical: Gen: NAD CVS: s1s2, RRR, unlabored Abdomen: soft, nt/nd, nabs Lungs: CTA b/l, unlabored Ext: no cce, edema patient deferred penile exam Current Medications Generic Name Dose Route Start Last Admin Trade Name Freq PRN Reason Stop Dose Admin Acetaminophen 650 mg 06/02/19 09:30 Tylenol - PO Q4H PRN PAIN LEVEL 4 - 6 Enoxaparin Sodium 40 mg 06/02/19 10:00 06/05/19 09:37 Lovenox - SQ 40 mg DAILY VERO Administration Fentanyl 50 mcg 06/03/19 11:15 06/03/19 14:00 Sublimaze Injection - IVPUSH 50 mcg [id number] PRN Administration PAIN-PACU ORDER X 4 DOSES ONLY Fluconazole 100 mg 06/02/19 14:00 06/05/19 09:37 Diflucan - PO 100 mg DAILY VERO Administration Vancomycin HCl 1,500 mg/ 500 mls @ 250 mls/hr 06/02/19 18:00 06/05/19 06:01 Dextrose IVPB 250 mls/hr Q12H VERO Administration Protocol Meropenem 1 gm/ Dextrose 100 mls @ 200 mls/hr 06/02/19 18:00 06/05/19 02:49 IVPB 200 mls/hr Q8H-IV VERO Administration Clindamycin Phosphate 900 mg in 50 mls @ 100 mls/hr 06/03/19 10:00 06/05/19 02:48 Cleocin 900 Mg Premix Ivpb - IVPB 100 mls/hr Q8H-IV VERO Administration Protocol Insulin Aspart 1 vial 06/02/19 11:00 06/05/19 11:48 Novolog Vial Sliding Scale - SQ Not Given TIDAC VERO Protocol Insulin Aspart 5 units 06/05/19 11:47 Novolog Vial SQ TIDAC [facility] Insulin Detemir 30 units 06/05/19 11:47 Levemir Vial SQ DAILY@1900 [facility] Morphine Sulfate 2 mg 06/02/19 09:30 06/05/19 02:49 Morphine Sulfate IVPUSH 2 mg Q4H PRN Administration PAIN LEVEL 7 - 10 Ondansetron HCl 4 mg 06/03/19 11:15 Zofran Injection IVPUSH Q6H PRN NAUSEA AND/OR VOMITING Laboratory Results - last 24 hr 06/02/19 06/04/19 06/04/19 17:50 16:15 16:16 POC Glucometer 288 Vancomycin Pre-Dose 2.4 L C. trachomatis (ROMAINE) Negative N. gonorrhoeae (ROMAINE) Negative 06/05/19 06:11 POC Glucometer 376 Vancomycin Pre-Dose C. trachomatis (ROMAINE) N. gonorrhoeae (ROMAINE) Microbiology 06/02/19 13:50 Blood - Peripheral Venous Blood Culture - Preliminary NO GROWTH OBTAINED AFTER 72 HOURS, INCUBATION TO CONTINUE FOR 2 DAYS. 06/02/19 13:45 Blood - Peripheral Venous Blood Culture - Preliminary NO GROWTH OBTAINED AFTER 72 HOURS, INCUBATION TO CONTINUE FOR 2 DAYS. 06/03/19 14:06 Tissue-Other Gram Stain - Final 06/03/19 14:06 Tissue-Other Tissue Culture - Final Strep Agalactiae Group B Yeast Like Organism Lactobacillus Species 06/03/19 14:06 Tissue-Other Anaerobic Culture - Preliminary Pending Organism 06/03/19 14:05 Abscess Gram Stain - Final 06/03/19 14:05 Abscess Wound Culture - Preliminary Strep Agalactiae Group B Yeast Like Organism Lactobacillus Species Pending Organism ASSESSMENT: Penile Cellulitis with abscess Uncontrolled DM2 PLAN: -s/p I & D POD#2 -follow-up cultures -continue with current iv abx -urology and ID eval appreciated -pain control -blood sugard uncontrolled, adjust regimen -ss for supp coverage
--- NOTE | 2019-06-05 15:58 | PN ---
Physical Exam: SUBJECTIVE: Patient seen and examined. O/N: refused ISS once last night. Endorses improvement in penile pain and swelling. Able to urinate w/o issues OBJECTIVE: Vital Signs Period Temp Pulse Resp BP Sys/Lennon Pulse Ox Last 24 Hr 97.9 F-99.6 F 74-82 19-20 117-133/65-76 97-100 GENERAL: Awake, alert, in no acute distress. HEAD: Normal with no signs of trauma. LUNGS: Breath sounds equal, clear to auscultation bilaterally. No wheezes, and no crackles. No accessory muscle use. HEART: Regular rate and rhythm, normal S1 and S2 without murmur, rub or gallop. ABDOMEN: Soft, nontender, not distended, no guarding, no rebound, no masses. : swelling of the penile shaft with semi-circumferential incision of penile base, loosely approximated, serous drainage, serous drainage on the 4x4 dressing , nonTTP of shaft. Indurated penile base. Left epipydidemal swelling reduced. B/ l inguinal LN MUSCULOSKELETAL: Normal range of motion at all joints. LOWER EXTREMITIES: 2+ pulses, warm, well-perfused. No calf tenderness. No peripheral edema. SKIN: Warm, dry, normal turgor Laboratory Results - last 24 hr 06/02/19 06/04/19 06/04/19 17:50 16:15 16:16 POC Glucometer 288 Vancomycin Pre-Dose 2.4 L C. trachomatis (ROMAINE) Negative N. gonorrhoeae (ROMAINE) Negative 06/05/19 06:11 POC Glucometer 376 Vancomycin Pre-Dose C. trachomatis (ROMAINE) N. gonorrhoeae (ROMAINE) Active Medications Generic Name Dose Route Start Last Admin Trade Name Freq PRN Reason Stop Dose Admin Acetaminophen 650 mg 06/02/19 09:30 Tylenol - PO Q4H PRN PAIN LEVEL 4 - 6 Enoxaparin Sodium 40 mg 06/02/19 10:00 06/05/19 09:37 Lovenox - SQ 40 mg DAILY VERO Administration Fentanyl 50 mcg 06/03/19 11:15 06/03/19 14:00 Sublimaze Injection - IVPUSH 50 mcg [id number] PRN Administration PAIN-PACU ORDER X 4 DOSES ONLY Fluconazole 100 mg 06/02/19 14:00 06/05/19 09:37 Diflucan - PO 100 mg DAILY VERO Administration Vancomycin HCl 1,500 mg/ 500 mls @ 250 mls/hr 06/02/19 18:00 06/05/19 06:01 Dextrose IVPB 250 mls/hr Q12H [facility] Administration Protocol Meropenem 1 gm/ Dextrose 100 mls @ 200 mls/hr 06/02/19 18:00 06/05/19 02:49 IVPB 200 mls/hr Q8H-IV VERO Administration Clindamycin Phosphate 900 mg in 50 mls @ 100 mls/hr 06/03/19 10:00 06/05/19 02:48 Cleocin 900 Mg Premix Ivpb - IVPB 100 mls/hr Q8H-IV [facility] Administration Protocol Insulin Aspart 1 vial 06/02/19 11:00 06/05/19 11:48 Novolog Vial Sliding Scale - SQ Not [facility] Protocol Insulin Aspart 5 units 06/05/19 11:47 Novolog Vial SQ TIDAC [facility] Insulin Detemir 30 units 06/05/19 11:47 Levemir Vial SQ DAILY@1900 [facility] Morphine Sulfate 2 mg 06/02/19 09:30 06/05/19 02:49 Morphine Sulfate IVPUSH 2 mg Q4H PRN Administration PAIN LEVEL 7 - 10 Ondansetron HCl 4 mg 06/03/19 11:15 Zofran Injection IVPUSH Q6H PRN NAUSEA AND/OR VOMITING Vital Signs Temp 97.9 F 06/05/19 09:15 Pulse 81 06/05/19 09:15 Resp 19 06/05/19 13:37 BP 125/73 06/05/19 09:15 Pulse Ox 100 06/05/19 13:35 Intake & Output 06/04/19 06/05/19 06/05/19 23:59 11:59 23:59 Intake Total 1280 400 Output Total 600 Balance 680 400 Intake: IVPB 650 400 Oral 630 Output: Urine 600 Void 600 Other: Voiding Method Urinal Urinal Urinal # Unmeasured Voids Void 2 Bowel Movement No ASSESSMENT/PLAN: Patient is a 23 y/o male with a past medical history of diabetes who is admitted for cellulitis/abscess of his penis. #Cellulites with possible early abscess formation > CT A/P(06/02/19): stranding/edema of Right groin w/ prominent LN w/ overlying skin thickening > US testicles(06/02/19): b/l hydrocele, cannot r/o epididymitits - ID consult: --vancomycin, meropenem, clindamycin --fluconazole - f/u blood and urine culture - f/u HIV and STD screen - Uro consult(Dr. Diaz) --POD#2 I&D w/ 40cc drained -pain control: morphine 2mg q4h -fu operative wound culture -- NGTD -fu BCX, UCX -chlamydia --neg, gonhorrhea --neg #DM > HbA1c ~13.4 - ISS ACHS - novolog 5U TID - increased levemir 20--> 25--> 30U QHS DVT PPX - lovenox 40 sq daily #FEN - diabetic diet Visit type - Emergency Visit Emergency Visit: No - New Patient This patient is new to me today: No - Critical Care Critical Care patient: No ATTENDING PHYSICIAN STATEMENT I saw and evaluated the patient. I reviewed the resident's note and discussed the case with the resident. I agree with the resident's findings and plan as documented. SUBJECTIVE: OBJECTIVE: ASSESSMENT AND PLAN:
--- NOTE | 2019-06-05 16:05 | PN ---
Progres Note Chief Complaint: penile abscess - Objective Vital Signs: Vital Signs Temperature 97.9 F 06/05/19 09:15 Pulse Rate 81 06/05/19 09:15 Respiratory Rate 19 06/05/19 13:37 Blood Pressure 125/73 06/05/19 09:15 O2 Sat by Pulse Oximetry (%) 100 06/05/19 13:35 Labs/Additional Data: CBC, BMP 06/03/19 05:20 06/03/19 05:20 Imaging - Results Cat Scan: Pending, Image Reviewed Ultrasound: Report Reviewed, Image Reviewed Problem List - Problems (1) Penile abscess Assessment/Plan: wound intact continuing to improve minimal drainage Code(s): N48.21 - ABSCESS OF CORPUS CAVERNOSUM AND PENIS Assessment/Plan culture appreciated december D/C in am on po abx wet to dry dressing change Abx as per ID
--- NOTE | 2019-06-05 16:50 | PATH ---
Surgical Pathology Report Patient Name: CORY CAVAZOS Med. Rec. #: [id number] /Age/Gender: 1995 (Age: 23) / M Account: [id number] Location: [address] [place] [address] Taken: 06/03/2019 Received: 06/04/2019 Reported: 06/05/2019 Physicians: Haim Monge M.D. Specimen(s) Received TISSUE OF NECROTIC PENILE Clinical History Abscess of shaft of penis, hyperglycemia Final Diagnosis NECROTIC PENILE TISSUE, EXCISION: PORTIONS OF NECROTIC SKIN WITH HEMORRHAGE, SEVERE ACUTE INFLAMMATION, AND ABSCESS FORMATION. Electronically Signed Jacki Kelsey M.D. Gross Description Received in formalin, labeled "necrotic penile tissue" are 3 clark, irregular portions of necrotic soft tissue measuring 1.5 x 1.0 x 0.3 cm aggregate. The specimen is submitted in toto in one cassette. ENRIQUE/06/04/2019 karen/06/04/2019
--- NOTE | 2019-06-05 16:54 | PN ---
Progress Note (short form) - Note Progress Note: swelling improved he is able to urinate Vital Signs Period Temp Pulse Resp BP Sys/Lennon Pulse Ox Last 24 Hr 97.9 F-99.6 F 74-82 19-20 117-133/65-76 100 cor-rrr lungs clear penile erythema resolved, edema resolved still some drainage from the incision site, less swelling/induration base of the penis CBC, BMP 06/03/19 05:20 06/03/19 05:20 Microbiology 06/03/19 14:05 Abscess Gram Stain - Final 06/03/19 14:05 Abscess Wound Culture - Preliminary Strep Agalactiae Group B Yeast Like Organism Lactobacillus Species Pending Organism 06/02/19 13:50 Blood - Peripheral Venous Blood Culture - Preliminary NO GROWTH OBTAINED AFTER 72 HOURS, INCUBATION TO CONTINUE FOR 2 DAYS. 06/02/19 13:45 Blood - Peripheral Venous Blood Culture - Preliminary NO GROWTH OBTAINED AFTER 72 HOURS, INCUBATION TO CONTINUE FOR 2 DAYS. 06/03/19 14:06 Tissue-Other Gram Stain - Final 06/03/19 14:06 Tissue-Other Tissue Culture - Final Strep Agalactiae Group B Yeast Like Organism Lactobacillus Species 06/03/19 14:06 Tissue-Other Anaerobic Culture - Preliminary Pending Organism 06/02/19 17:50 Urine - Urine Clean Catch Urine Culture - Final NO GROWTH OBTAINED ua negative a/p penile cellulitis, /?abscess at base of penis- switch to unasyn, f/u cultures in am diabetes- diabetic teaching, glucose control, hgb aic hiv
[2019-06-05] MEDS: AMPICILLIN NA/SULBACTAM NA 3 GM in SODIUM CHLORIDE 100 ML IVPB SCH ×2 (17:45→22:21)
[2019-06-06] MEDS: AMPICILLIN NA/SULBACTAM NA 3 GM in SODIUM CHLORIDE 100 ML IVPB SCH ×3 (03:09→14:53)
[2019-06-06] MEDS: INSULIN (NOVOLOG) ASPART 100 UNITS/ML 10ML VIAL SQ SCH ×3 (08:07→17:24)
[2019-06-06] MEDS: INSULIN SLIDING SCALE (NOVOLOG) 1 VIAL SQ SCH ×3 (08:10→17:24)
[2019-06-06] MEDS: MORPHINE SULFATE 2 MG/ML VIAL IVPUSH PRN (08:12)
[2019-06-06] MEDS ORDERED: ACETAMINOPHEN 325 MG TABLET (FP) PO PRN (08:43)
[2019-06-06] MEDS ORDERED: KETOROLAC TROMETHAMINE 15 MG/ML VIAL IVPUSH PRN (08:43)
[2019-06-06] MEDS: ENOXAPARIN NA (PORCINE) 40 MG/0.4 ML DISP.SYRIN SQ SCH (10:09)
[2019-06-06] MEDS ORDERED: PT OWN MED DRAWER 7, Y5N ONE ×2 (11:31→14:48)
[2019-06-06] MEDS: FLUCONAZOLE 100 MG TABLET (UD) PO SCH (11:34)
[2019-06-06 13:35] VITALS: BP 125/83; PULSE 81; TEMP 98.2
--- NOTE | 2019-06-06 13:46 | PN ---
Progress Note (short form) - Note Progress Note: afebrile penile swelling decreased stable from standpoint antibiotics as per ID Problem List - Problems (1) Cellulitis of shaft of penis Code(s): N48.22 - CELLULITIS OF CORPUS CAVERNOSUM AND PENIS
--- NOTE | 2019-06-06 15:44 | PN ---
Progress Note (short form) - Note Progress Note: doing well Vital Signs Period Temp Pulse Resp BP Sys/Lennon Pulse Ox Last 24 Hr 97.7 F-98.4 F 79-95 18-20 124-128/68-83 100-100 cor-rrr llungs clear penile lesion is clean, no drainage, no erythema, no edema CBC, BMP 06/03/19 05:20 06/03/19 05:20 Microbiology 06/02/19 13:50 Blood - Peripheral Venous Blood Culture - Preliminary NO GROWTH OBTAINED AFTER 96 HOURS, INCUBATION TO CONTINUE FOR 1 DAYS. 06/02/19 13:45 Blood - Peripheral Venous Blood Culture - Preliminary NO GROWTH OBTAINED AFTER 96 HOURS, INCUBATION TO CONTINUE FOR 1 DAYS. 06/03/19 14:06 Tissue-Other Gram Stain - Final 06/03/19 14:06 Tissue-Other Tissue Culture - Final Strep Agalactiae Group B Yeast Like Organism Lactobacillus Species 06/03/19 14:06 Tissue-Other Anaerobic Culture - Final Anaero Non Spore Forming Gpbac 06/03/19 14:05 Abscess Gram Stain - Final 06/03/19 14:05 Abscess Wound Culture - Preliminary Strep Agalactiae Group B Yeast Like Organism Lactobacillus Species Anaero Non Spore Forming Gpbac 06/02/19 17:50 Urine - Urine Clean Catch Urine Culture - Final NO GROWTH OBTAINED ua negative a/p penile cellulitis-s/p drainage of abscess- can switch to po augmentin 875 mg po bid for another 7 days and diflucan 100 mg po daily for another 7 days f/u per urology diabetes- diabetic teaching, glucose control, hgb aic, f/u pmd please call back if needed
--- NOTE | 2019-06-06 17:14 | PN ---
Teaching Attending Note Name of Resident: Amadeo Claire ATTENDING PHYSICIAN STATEMENT I saw and evaluated the patient. I reviewed the resident's note and discussed the case with the resident. I agree with the resident's findings and plan as documented with exceptions below. SUBJECTIVE: Patient seen and examined. improved, eager to go home, doing his dressing himself. OBJECTIVE: Vital Signs Period Temp Pulse Resp BP Sys/Lennon Pulse Ox Last 24 Hr 97.7 F-98.4 F 79-95 18-20 124-128/68-83 100-100 Intake & Output 06/03/19 06/04/19 06/05/19 06/06/19 23:59 23:59 23:59 23:59 Intake Total 1550 1880 900 920 Output Total 700 1400 700 Balance 850 480 900 220 Weight 205 lb 205 lb General: ambulating in room, no acute distress Chest: CTAB, no rales or wheezing Abdomen: soft, NT, ND, pos bowel sounds Genital: healing wound on undersurface of penis, no active discharge or surrounding tenderness of erythema noted, induration based on penis improved, no tenderness noted Home Medications Medication Instructions Recorded Amoxicillin/Potassium Clav 1 each PO BID #14 tablet 06/06/19 [Augmentin 875-125 Tablet] Fluconazole [Diflucan -] 100 mg PO DAILY 7 Days #7 tablet 06/06/19 Gauze Bandage [Gauze] 1 each TP BID 15 Days #30 bandage 06/06/19 Insulin Glargine,Hum.rec.anlog 40 units SQ HS 30 Days #1 06/06/19 [Basaglar Kwikpen U-100] insuln.pen Insulin Lispro [Admelog Solostar] 100 unit SQ AC #1 insuln.pen 06/06/19 Miscellaneous Medical Supply 1 each AD ASDIR #1 kit 06/06/19 [Glucometer Device] Miscellaneous Medical Supply 1 each AD ASDIR #1 box 06/06/19 [Glucometer Test Strips #100] Normal Saline Flush [Saline Lock 10 ml IJ BID 15 Days #30 disp.syrin 06/06/19 Flush -] Pen Needle, Diabetic [Insulin Pen 1 each MC DAILY 30 Days #1 06/06/19 Needle] dis.needle Syringe and Needle,Insulin,1Ml 1 each MC TID 30 Days #100 06/06/19 [Comfort Ez Insulin Syringe] disp.syrin Laboratory Results - last 24 hr 06/05/19 06/05/19 06/06/19 17:37 21:05 11:39 POC Glucometer 372 156 338 ASSESSMENT AND PLAN: 23 yom with PMHX of IDDM, non compliant admitted with penile abscess s/p I&D -Penile abscess s/p I&D -IDDM, poorly controlled Plan: ID/urology input noted. Augmentin for 7 days. patient doing his own dressings in the hospital. Ran out of his DM meds, confirmed with [facility], on Basaglar 40 units and Lispro sliding scale. Patient educated to be compliant with the regimen, and have close follow up with Dr. Key. Will hold metformin on dc. Also explained current A1c, need for tight glucose control and increased risk of worsening infection, sepsis and explained. patient relays full understanding and agrees to comply. D/c home today with close outpatient PCP and endocrine follow up.
[2019-06-06] MEDS ORDERED: INSULIN (LEVEMIR) 100 UNITS/ML UNITS SQ ONE (17:49)
--- NOTE | 2019-06-06 20:50 | DS ---
Physical Exam: SUBJECTIVE: Patient seen and examined OBJECTIVE: Vital Signs Period Temp Pulse Resp BP Sys/Lennon Pulse Ox Last 24 Hr 97.7 F-98.4 F 81-95 18-20 124-125/68-83 100-100 PHYSICAL EXAM GENERAL: Awake, alert, in no acute distress. HEAD: Normal with no signs of trauma. LUNGS: Breath sounds equal, clear to auscultation bilaterally. No wheezes, and no crackles. No accessory muscle use. HEART: Regular rate and rhythm, normal S1 and S2 without murmur, rub or gallop. ABDOMEN: Soft, nontender, not distended, no guarding, no rebound, no masses. : swelling of the penile shaft with semi-circumferential incision of penile base, loosely approximated, serous drainage, serous drainage on the 4x4 dressing , nonTTP of shaft. Indurated penile base. Left epipydidemal swelling reduced. B/ l inguinal LN MUSCULOSKELETAL: Normal range of motion at all joints. LOWER EXTREMITIES: 2+ pulses, warm, well-perfused. No calf tenderness. No peripheral edema. SKIN: Warm, dry, normal turgor LABS Laboratory Results - last 24 hr 06/05/19 06/06/19 21:05 11:39 POC Glucometer 156 338 HOSPITAL COURSE: 24M w/ pmh IDDM presenting for penile swelling. CT A/P(06/02/19): stranding/ edema of Right groin w/ prominent LN w/ overlying skin thickening. US testicles(06/02/19): b/l hydrocele, cannot r/o epididymitits Urology was consulted. S/p surgical drainage of the penile abscess(Joe, 06/03/19). Initially received vanc, meropenem, clindamycin. Transistioned to Unasyn, then Augmentin for discharge. Started on Leveremir and ISS, to be continued as outpt. Labwork negative for syphilis, chlamydia, gonorrhea, HIV. Patient was at times belligerent with with adherence, refusing abx/insulin/room change. Ultimately, pt expressed understanding and adherence. Safe for discharge home. Date of Admission:06/02/19 Date of Discharge: 06/06/19 Minutes to complete discharge: 20 Discharge Summary Problems reviewed: Yes Reason For Visit: ABSCESS OF SHAFT OF PENIS HYPERGLYCEMIA Condition: Stable - Instructions Diet, Activity, Other Instructions: You were evaluated in the hospital for penile swelling. Urology was consulted. You underwent an operation for surgical drainage of the penile abscess. Your intravenous antibiotics were changed to oral antibiotics. Your insulin regimen was adjusted during your hospitalization. Labwork showed that you were negative for syphilis, chlamydia, gonorrhea, HIV. Please see the physicians below in 1-2weeks: -Instrument Assembler(Dr Reilly): for continued optimization of your insulin regimen, recheck your bloodwork for HbA1c in 3months -Urologist(Dr Monge): for post-operative wound check MEDICATIONS: RESUME YOUR HOME INSULIN REGIMEN WITH BASAGLAR INSULIN AND LISPRO SLIDING SCALE INSTRUCTED BY DR. REILLY DO NOT TAKE YOUR METFORMIN FOR NOW. -NEW medications: --Augmentin 875mg twice a day for 7 days --Fluconazole[Diflucan] 100mg once a day for 7 days --Glargine[Basaglar] 40U injected once nightly --Lispro[Admelog Solostar] sliding scale(as determined b Dr Reilly), dose to be administered according to your finger stick glucose testing --saline flushes and dry gauze for your daily wound care -STOP taking your metformin, sulfamethoxazole/trimethoprim[Bactrim], cephalexin[ Keflex] YOU MUST TAKE YOUR INSULIN PRESCRIBED AND FOLLOW UP WITH YOUR ENDOCRINOLOGY; Your A1c was 13.4%. It will need to be rechecked in 3 months. Please follow up with endocrine and your pcp. Additional Instructions: -apply a saline moistened gauze dressing to the surgical one and an overlying dry gauze dressing. Change twice a day and whenever the dressing is soiled -avoid sugary drinks and excessive sugars in your diet -increase your exercise with goal to lose 10-12lbs in 2months -take all your medications as prescribed -avoid smoking, illicit drugs Please seek immediate medical evaluation or go to the Emergency Department if you experience: -thick, foul-smelling drainage from your penile surgical wound -increased pain, or warmth at your surgical wound -inability to urinate -fever, chills, nausea, vomiting, confusion Referrals: Haim Monge MD., [Staff Physician] - Rom Reilly MD [Staff Physician] - Disposition: HOME - Home Medications Comprehensive Discharge Medication List: Ambulatory Orders Amoxicillin/Potassium Clav [Augmentin 875-125 Tablet] 1 each PO BID #14 tablet 06/06/19 Fluconazole [Diflucan -] 100 mg PO DAILY 7 Days #7 tablet 06/06/19 Gauze Bandage [Gauze] 1 each TP BID 15 Days #30 bandage 06/06/19 Insulin Glargine,Hum.rec.anlog [Basaglar Kwikpen U-100] 40 units SQ HS 30 Days # 1 insuln.pen 06/06/19 Insulin Lispro [Admelog Solostar] 100 unit SQ AC #1 insuln.pen 06/06/19 Miscellaneous Medical Supply [Glucometer Device] 1 each AD ASDIR #1 kit Miscellaneous [employer] [Glucometer Test Strips #100] 1 each AD ASDIR #1 box 06/06/19 Normal Saline Flush [Saline Lock Flush -] 10 ml IJ BID 15 Days #30 disp.syrin Pen Needle, Diabetic [Insulin Pen Needle] 1 each MC DAILY 30 Days #1 dis.needle 06/06/19 Syringe and Needle,Insulin,1Ml [Comfort Ez Insulin Syringe] 1 each MC TID 30 Days #100 disp.syrin 06/06/19 This patient is new to me today: No Emergency Visit: No Critical Care patient: No - Discharge Referral Referred to [facility] No ATTENDING PHYSICIAN STATEMENT I saw and evaluated the patient. I reviewed the resident's note and discussed the case with the resident. I agree with the resident's findings and plan as documented. SUBJECTIVE: OBJECTIVE: ASSESSMENT AND PLAN:
== END 2019-06-06 18:24 | disposition home or self-care (01) | DRG 720 ==
LOC: JER 04:44 → JERBED 07:18 → J6S 06-03 15:45
PROVIDERS: ADMIT Internal Medicine; ATTEND Hospitalist
PROC: 0TJB8ZZ Inspection of Bladder, Via Natural or Artificial Opening Endoscopic (ICD-10-PCS; 2019-06-03)
PROC: 0H9AXZX Drainage of Inguinal Skin, External Approach, Diagnostic (ICD-10-PCS; principal; 2019-06-03 13:00)
PROC: 0HBAXZZ Excision of Inguinal Skin, External Approach (ICD-10-PCS; 2019-06-03 13:00)
DX: A41.89 Other specified sepsis (principal); N48.21 Abscess of corpus cavernosum and penis; E11.65 Type 2 diabetes mellitus with hyperglycemia; E66.3 Overweight; Z68.29 Body mass index [BMI] 29.0-29.9, adult; L73.2 Hidradenitis suppurativa; N48.22 Cellulitis of corpus cavernosum and penis; Z91.14 Patient's other noncompliance with medication regimen; N50.89 Other specified disorders of the male genital organs; F17.210 Nicotine dependence, cigarettes, uncomplicated; Z16.10 Resistance to unspecified beta lactam antibiotics; R00.0 Tachycardia, unspecified; D72.829 Elevated white blood cell count, unspecified
CPT/HCPCS: 36415; 74176-TC; 76870-TC; 80053; 81003; 82009; 82947; 82962; 83036; 83605; 83735; 84100; 85025; 86593; 87040; 87070; 87075; 87076; 87077; 87086; 87186; 87205; 87389; 87491; 87591; 88304-TC; 93005; 93010; 94760; 99285-25; G0480; J0131; J7030

== ENCOUNTER 2022-05-30 14:23 | Emergency (ER) | payer OTHER ==
[2022-05-30 14:42] VITALS: BP 112/69; PULSE 101; RESP 18; TEMP 98.5; BMI 27.6
== END 2022-05-30 16:30 | disposition home or self-care (01) ==
LOC: JERFT 14:23 → JER 14:23 → JERFT 16:30
DX: L02.31 Cutaneous abscess of buttock (principal)
CPT/HCPCS: 87070; 87076; 87077; 87205; 99282-25